=== PATIENT | female | born 1960 | race Caucasian/White ===

== ENCOUNTER 2017-04-17 10:18 | Emergency (ER) | payer MEDICARE ==
[2017-04-17 10:25] VITALS: BP 125/71; PULSE 94; RESP 20; TEMP 98.3
--- NOTE | 2017-04-17 10:35 | ED ---
General Adult HPI - General Chief complaint: Extremity Injury, Lower Stated complaint: foot pain Time Seen by Provider: 04/17/17 10:28 Source: patient, RN notes reviewed Mode of arrival: wheelchair Limitations: physical limitation - History of Present Illness Initial comments: Patient 56-year-old female who presents emergency room today with a chief complaint of injury to the right ankle and foot times one day. Does not that she was walking out of the river slipped on a rock that had algae on it causing her to roll the right ankle. Does admit to pain locally to the ankle and foot. Denies any other complaints or associated symptoms at this time. Patient denies any recent fever, chills, shortness of breath, chest pain, back pain, abdominal pain, nausea or vomiting, numbness or tingling, dysuria or hematuria, constipation or diarrhea, headaches or visual changes, or any other complaints. - Related Data Allergies Allergy/AdvReac Type Severity Reaction Status Date / Time acetaminophen [From Vicodin] Allergy Swelling Verified 04/17/17 10:25 hydrocodone [From Vicodin] Allergy Swelling Verified 04/17/17 10:25 nitrofurantoin Allergy Swelling Verified 04/17/17 10:25 [From Macrobid] oxycodone [From Percocet] Allergy Swelling Verified 04/17/17 10:25 pregabalin [From Lyrica] Allergy Swelling Verified 04/17/17 10:25 Review of Systems ROS Statement: Those systems with pertinent positive or pertinent negative responses have been documented in the HPI. ROS Other: All systems not noted in ROS Statement are negative. Past Medical History Past Medical History: Fibromyalgia History of Any Multi-Drug Resistant Organisms: None Reported Past Surgical History: Section, Hysterectomy, Orthopedic Surgery Past Psychological History: No Psychological Hx Reported Smoking Status: Former smoker Past Alcohol Use History: Occasional Past Drug Use History: None Reported General Exam - General Exam Comments Initial Comments: General: The patient is awake and alert, in no distress, and does not appear acutely ill. Neck: The neck is supple, there is no tenderness or JVD. Cardiovascular: There is a regular rate and rhythm. No murmur, rub or gallop is appreciated. Respiratory: Lungs are clear to auscultation, respirations are non-labored, breath sounds are equal. No wheezes, stridor, rales, or rhonchi. Musculoskeletal: Patient does have moderate swelling down to the right ankle and foot. Does have tenderness over the lateral malleolus. Tender in the ATFL. No tenderness over the fourth and third proximal metatarsals. No tenderness to the right knee. Sensations intact with pulses equal bilaterally 2 +. Neurological: A&O x 3. CN II-XII intact, There are no obvious motor or sensory deficits. Coordination appears grossly intact. Speech is normal. Skin: Skin is warm and dry and no rashes or lesions are noted. Psychiatric: Normal mood and affect. Limitations: physical limitation Course Vital Signs 04/17/17 10:22 Temperature 98.3 F Pulse Rate 94 Respiratory 20 Rate Blood Pressure 125/71 O2 Sat by Pulse 98 Oximetry Medical Decision Making - Medical Decision Making Patient's x-ray reviewed does show evidence for a distal fibula fracture nondisplaced. Results were discussed with the patient. Patient has been splinted in a posterior short leg OCL splint. Neurovascular rechecked and intact. Patient advised to follow-up with orthopedics over the next 1-2 days. Patient states she has crutches at home. She is nonweightbearing. Advised return for any other concerns. Disposition Clinical Impression: Ankle fracture Disposition: HOME SELF-CARE Condition: Good Instructions: Ankle Fracture (ED) Additional Instructions: Please follow-up with orthopedics over the next 1-2 days. Please see splinted in Lasix until follow-up appointment. Please continue to ice elevate the affected area. Please use crutches with nonweightbearing. Please return to emergency room for any other concerns. Referrals: Angie Moreno MD [Primary Care Provider] - 1-2 days Cj Wise MD [STAFF PHYSICIAN] - 1-2 days Time of Disposition: 11:06
--- NOTE | 2017-04-17 11:07 | XR ---
Right foot and right ankle HISTORY: Trauma and pain 3 views of the right foot and 3 views of the right ankle submitted and correlated to prior right foot dated 04/25/2015 Plantar calcaneal spur is again noted. Soft tissue swelling is noted in the foot. Oblique fracture of the distal fibula at the metaphyseal level is present with minimal displacement posteriorly and late rally. No dislocation. There is soft tissue swelling. Small ossific density distal to the fibula appe ars well-corticated and is felt likely to be chronic. IMPRESSION: Distal fibular fracture.
== END 2017-04-17 11:19 | disposition home or self-care (01) ==
LOC: EC 10:18
DX: S82.831A Other fracture of upper and lower end of right fibula, initial encounter for closed fracture (principal); Z87.891 Personal history of nicotine dependence; Z88.1 Allergy status to other antibiotic agents; Z88.5 Allergy status to narcotic agent; W18.49XA Other slipping, tripping and stumbling without falling, initial encounter; Y92.828 Other wilderness area as the place of occurrence of the external cause; Z88.8 Allergy status to other drugs, medicaments and biological substances
CPT/HCPCS: 29515; 99283

== ENCOUNTER 2017-04-18 12:26 | Day surgery (SDC) | payer MEDICARE ==
[2017-04-18] MEDS ORDERED: ceFAZolin 2 GM in SODIUM CHLORIDE 0.9% 100 ML IVPB STA (12:34)
--- NOTE | 2017-04-18 12:56 | XR ---
EXAMINATION TYPE: XR chest 2V DATE OF EXAM: 04/18/2017 COMPARISON: NONE HISTORY: Presurgical study TECHNIQUE: Frontal and lateral views of the chest are obtained. FINDINGS: There is no focal air space opacity, pleural effusion, or pneumothorax seen. The cardiac silhouette size is within normal limits. Spine is straightened on lateral view. There is anterior fus ion plate in the lower cervical spine noted. IMPRESSION: No acute cardiopulmonary process.
[2017-04-18] MEDS ORDERED: LIDOCAINE 1% 20 ML VIAL (10MG/ML) FOR IV START INTRADERMA ONE (14:07)
[2017-04-18] MEDS ORDERED: LACTATED RINGERS 1,000 ML IV ONE ×2 (14:07→17:35)
[2017-04-18 14:25] LABS: Anion Gap 11 mmol/L; Blood Urea Nitrogen 9 mg/dL (7-17); Carbon Dioxide 13 mmol/L (22-30); Chloride 107 mmol/L (98-107); Non-African American GFR(MDRD) >60 (>60 ml/min/1.73 sqM); Potassium 4.1 mmol/L (3.5-5.1); Sodium 131 mmol/L (137-145)
[2017-04-18 14:26] LABS: INR 1.5 (<1.2); Partial Thromboplastin Time 38.3 sec (22.0-30.0); Prothrombin Time 14.9 sec (9.0-12.0)
[2017-04-18 14:28] LABS: Aty Lym Flag Slight; Basophils % (A) 1 %; CHCM 32.7; Eosinophils % (A) 2 %; HCT 20.3 % (34.0-46.0); HDW 2.44; Luc # (Auto) 0.15; Luc % (Auto) 5; Lymphocytes # (A) 0.5 k/uL (1.0-4.8); Lymphocytes % (A) 18 %; MCH 31.7 pg (25.0-35.0); MCHC 32.2 g/dL (31.0-37.0); MCV 98.5 fL (80.0-100.0); Mean Platelet Volume 7.7; Monocytes # (A) 0.2 k/uL (0-1.0); Monocytes % (A) 6 %; Neutrophils # (A) 1.9 k/uL (1.3-7.7); Neutrophils % (A) 69 %; RBC 2.06 m/uL (3.80-5.40); WBC 2.7 k/uL (3.8-10.6); WBC (Perox) 2.68
[2017-04-18] MEDS ORDERED: DEXAMETHASONE SOD PHOSPHATE 10 MG/ML 1 ML VIAL IV ONE (14:30)
[2017-04-18] MEDS ORDERED: ONDANSETRON 4 MG/2 ML VIAL IVP ONE (14:30)
[2017-04-18 14:33] LABS: HGB 6.5 gm/dL (11.4-16.0)
[2017-04-18 14:43] LABS: Glucose 37 mg/dL (74-99)
[2017-04-18 14:55] LABS: Glucose,Whole Blood 80 mg/dL (75-99)
[2017-04-18 15:44] LABS: Basophils # (A) 0.1 k/uL (0-0.2); Basophils % (A) 1 %; CH 32.5; Eosinophils # (A) 0.2 k/uL (0-0.7); Eosinophils % (A) 2 %; HCT 42.8 % (34.0-46.0); HDW 2.43; Luc # (Auto) 0.11; Luc % (Auto) 2; Lymphocytes # (A) 1.8 k/uL (1.0-4.8); Lymphocytes % (A) 27 %; MCH 32.6 pg (25.0-35.0); MCHC 33.9 g/dL (31.0-37.0); Monocytes # (A) 0.4 k/uL (0-1.0); Monocytes % (A) 5 %; Neutrophils # (A) 4.1 k/uL (1.3-7.7); Neutrophils % (A) 63 %; RBC 4.46 m/uL (3.80-5.40); RDW 12.5 % (11.5-15.5); WBC 6.5 k/uL (3.8-10.6); WBC (Perox) 6.96
[2017-04-18 15:51] LABS: HGB 14.5 gm/dL (11.4-16.0)
[2017-04-18 15:54] LABS: Anion Gap 9 mmol/L; Blood Urea Nitrogen 18 mg/dL (7-17); Calcium 9.1 mg/dL (8.4-10.2); Carbon Dioxide 24 mmol/L (22-30); Chloride 108 mmol/L (98-107); Glucose 81 mg/dL (74-99); Non-African American GFR(MDRD) >60 (>60 ml/min/1.73 sqM); Potassium 4.3 mmol/L (3.5-5.1); Sodium 141 mmol/L (137-145)
[2017-04-18 16:08] LABS: Partial Thromboplastin Time 19.7 sec (22.0-30.0)
[2017-04-18] MEDS ORDERED: PROPOFOL 10 MG/ML 20 ML VIAL IV ONE (16:17)
[2017-04-18] MEDS ORDERED: SUCCINYLCHOLINE CHLORIDE 100 MG/5 ML SYR IV ONE (16:17)
[2017-04-18] MEDS ORDERED: ePHEDrine 50 MG/ML 1 ML AMP ONE (16:17)
[2017-04-18] MEDS ORDERED: LIDOCAINE 1% INJ 10MG/ML (20 ML MDV) ONE (16:17)
[2017-04-18] MEDS ORDERED: MIDAZOLAM 2 MG/2 ML VIAL ONE (16:17)
[2017-04-18] MEDS ORDERED: fentaNYL (PF) 50 MCG/ML 2 ML AMP ONE (16:17)
[2017-04-18] MEDS ORDERED: BUPIVACAINE (PF) 0.25% 30 ML VIAL SQ ONE (16:46)
[2017-04-18] MEDS ORDERED: ONDANSETRON 4 MG/2 ML VIAL IVP PRN (17:21)
[2017-04-18] MEDS ORDERED: HYDROmorphone 1 MG/ML 1 ML SYRINGE IVP PRN ×2 (17:21)
[2017-04-18] MEDS ORDERED: NALOXONE 0.4 MG/ML 1 ML VIAL IV PRN (17:21)
[2017-04-18] MEDS ORDERED: LACTATED RINGERS 1,000 ML IV SCH (17:30)
[2017-04-18 17:46] VITALS: RESP 16; TEMP 97
--- NOTE | 2017-04-18 17:56 | P.OP ---
Date of Procedure: 04/18/17 Preoperative Diagnosis: Right ankle lateral malleolus fracture, displaced, acute and traumatic Postoperative Diagnosis: Same Procedure(s) Performed: Implants: Anesthesia: GETA Pathology: none sent Condition: stable Disposition: PACU Indications for Procedure: Operative Findings: Description of Procedure: BRIEF OPERATIVE NOTE Preoperative Diagnosis: Right distal fibula fracture, comminuted and displaced, acute traumatic status post fall Postoperative Diagnosis: Same Procedure: Open reduction internal fixation of right distal fibula fracture Use of fluoroscopic guidance Surgeon: Dr. Kennedy [employer] Battery Assembler: Toby Roque is present throughout the entire the case persistence during positioning, dissection, exposure, visualization, and all crucial elements of the case as well as closure. Anesthesia: General anesthesia Estimated blood loss: Less than 10 mL Tourniquet time: Approximately 40 minutes Specimen: None Complications: None apparent Components implanted: Synthes small frag one third semitubular plate with 7 screws with comminution of 3.5 cortical and 40 cancellus screws Disposition: To recovery room in good stable condition. OPERATIVE INDICATIONS The patient had an acute injury 2 days ago when she slipped and fell on some rocks in the river while she [place] the [place].. She had immediate pain and swelling in her right ankle. She had not had any pain or issues prior to her fall. She was evaluated and found have a comminuted distal fibula fracture with accompanying medial sided pain. She unfortunately was away from home and had to drive in her car with her ankle fracture. She was evaluated in the emergency room yesterday and was found have an ankle fracture at the distal fibula. There is no evidence of fracture at the medial malleolus but there was evidence of deltoid ligament injury. With the comminution and the medial and lateral pain involved I felt that her best chance of healing would be to pursue open reduction internal fixation of distal fibula. I discussed the risk of occasions alternatives and benefits of surgery in relation to her injury. I discussed the risk of bleeding risk and infection risk and need for further surgery risk of decreased loss of motion loss function malunion nonunion hardware failure nerve damage as well as, occasions with surgery were explained. I answered her questions best my ability and she elected proceed with surgical intervention. OPERATIVE SUMMARY After discussing all the risks, patient alternatives and benefits at length, the patient elected to proceed with surgical intervention, signed informed consent, and presented for their procedure. The patient was seen and examined in the preoperative holding area and the surgical site was marked. The patient was given antibiotics and brought to the operating room. The patient was sedated and intubated by anesthesia in standard fashion. The patient was positioned on to the operating room table in a supine position with a pad under her right hip. We were careful to pad any bony prominences and pressure points. We were careful to maintain the patient's cervical spine and good neutral alignment and position throughout. We used C-arm machines to establish union fluoroscopic guidance in AP and lateral positions. We were able to localize the fractures appropriately. The patient was prepped and draped in a normal standard fashion. An appropriate timeout and keystone protocol performed. We were able to proceed with the surgery. The local wound area was infiltrated with local anesthetic. An incision was made over the lateral aspect of the ankle and I dissected down to the distal fibula appropriately. The patient does have a tattoo at her lower leg and I had discussed with her the possibility of involving the tattoo area and we did not have to involve a tattoo in the incision. The fracture was obvious and I was able to mobilize some of the fragments and elevated some of the periosteum leaving as much is intact as possible. I performed a gentle reduction techniques in order to get the fractures well aligned and use of bone clamp to get good provisional fixation. I was able to get good near-anatomic position. This was confirmed with C-arm guidance. I was able place an anterior posterior interfragmentary screw across fracture site with standard AO technique and had good fixation and compression across the fracture site. I was then able to measure and position a one third semitubular 6 hole plate and contoured appropriately over the distal fibula and over the fracture site proximally and distally. I establish an interfragmentary screw going from anterior to posterior across fracture site and good alignment and position with good bony fixation. As able to remove the bone clamp in place the plate laterally and placed cortical screws proximally and cancellous screws distally to get excellent fixation at a near anatomic position. This was confirmed with C-arm guidance. Significant. I performed medial and lateral varus and valgus stress at the ankle after fixation was performed and there is no evidence of any widening or displacement of the syndesmosis or the ankle mortise. I do not feel we needed any further fixation. We were able to proceed with closure. Deep layers were closed with 2-0 Vicryl subcu tissues closed 2-0 Vicryl and skin was closed with 4-0 nylon. The wound was cleaned and dried and dressed with the appropriate dressing. I placed a sugar tong and posterior mold well-padded well molded splint at the right lower leg. The drapes were broken down. The patient was gently rolled back onto their hospital bed being careful to maintain their cervical spine and good neutral alignment and position. They were woken up by anesthesia, extubated, and brought to the recovery room in good stable condition. The patient will be able to be discharged from the hospital after appropriate observation due to and for appropriate postoperative care, medical management and monitoring. We will continue to follow them closely about the postoperative course. a plan see her back in the office in approximately 1 week' s time or sooner if she is having problems.
[2017-04-18] MEDS ORDERED: HYDROmorphone 1 MG/ML 1 ML SYRINGE IVP ONE (18:07)
[2017-04-18] MEDS ORDERED: IBUPROFEN 200 MG TAB PO ONE (18:56)
[2017-04-18 19:03] VITALS: BP 128/93; PULSE 62
[2017-04-19] MEDS ORDERED: ceFAZolin 2 GM in SODIUM CHLORIDE 0.9% 100 ML IVPB SCH ×2
--- NOTE | 2017-04-19 08:27 | XR ---
Limited right ankle HISTORY: Right ankle fracture Intraoperative C-arm images document the procedure
--- NOTE | 2017-04-19 08:30 | FL ---
Fluoroscopy HISTORY: Open reduction internal fixation right ankle 30 seconds fluoroscopy time supplied to the referring clinician. 3 intraoperative C-arm images docum ent the procedure. See dictated report from orthopedic surgery.
== END 2017-04-18 19:22 | disposition home or self-care (01) ==
LOC: OR 12:26
PROVIDERS: ATTEND Orthopaedic Surgery Orthopaedic Surgery of the Spine
DX: S82.61XA Displaced fracture of lateral malleolus of right fibula, initial encounter for closed fracture (principal); Y92.828 Other wilderness area as the place of occurrence of the external cause; Y93.16 Activity, rowing, canoeing, kayaking, rafting and tubing; W19.XXXA Unspecified fall, initial encounter; E03.9 Hypothyroidism, unspecified; M79.7 Fibromyalgia; Z79.891 Long term (current) use of opiate analgesic; Z79.899 Other long term (current) drug therapy; Z88.1 Allergy status to other antibiotic agents; Z88.5 Allergy status to narcotic agent; Z87.891 Personal history of nicotine dependence
CPT/HCPCS: 93005; 86900; 86901; 80048; 85025; 85610; 85730; 86850; 71020; 73600; 27792; C1713; J2250; J1100; J0690; J2405; J2001; J3010; J1170; J0330; J2704

== ENCOUNTER → 2018-07-29 | Outpatient (CLI) | payer MEDICARE ==
--- NOTE | 2018-07-29 11:37 | MR ---
EXAMINATION TYPE: MR cervical spine wo/w con DATE OF EXAM ORDERED: 07/29/2018 11:10 AM HISTORY: M50.01 Cervical disc disorder. TECHNOLOGIST HISTORY AT TIME OF EXAM: Headaches, Bilateral arm weakness, Gadavist 7.5, Previous surge ry 15 years ago IV CONTRAST: 7.5 of Gadavist COMPARISON: None. TECHNIQUE: Multiplanar, multiecho imaging of the cervical spine was obtained with and without the in travenous administration of 7.5 of Gadavist on a 1.5 fatmata magnet. FINDINGS: There is been a previous ACDF extending from C4 to C6. Alignment remains normal. Atlantoaxi al relationships are normal. Prevertebral soft tissues are normal. There is a normal craniocervical junction. Cord signal is normal. There is no abnormal enhancement. At C2-C3, no significant abnormality is seen. At C3-C4, there is mild right-sided intervertebral foraminal narrowing. There is some bony spurring c entrally deforming the thecal sac with cord contact but without compression.. The facet are unremarka ble. The uncovertebral joints are not visualized. At C4-C5, this level is fused. There is mild right-sided intervertebral foraminal narrowing. There is no significant compressive discopathy. The facets are unremarkable. The uncovertebral joints are obs cured. At C5-C6, this level is fused. There is right-sided intervertebral foraminal narrowing. There is a sm all amount of bony spurring in a right paracentral location effacing the thecal sac without cord cont act. At C6-C7, there is bilateral intervertebral foraminal narrowing. There is a diffuse disc displacement . The facet and uncovertebral joints are unremarkable. At C7-T1, intervertebral foramina are well maintained. There is a diffuse disc displacement. The face t and uncovertebral joints are unremarkable. IMPRESSION: 1. POSTSURGICAL CHANGE. 2. MULTILEVEL INTERVERTEBRAL FORAMINAL NARROWING. 3. MILD BONY SPURRING DESCRIBED. 4. NO SIGNIFICANT COMPRESSIVE DISCOPATHY.
== END ==
LOC: RADMRIMAIN 10:17
PROVIDERS: ATTEND Family Medicine
DX: M99.71 Connective tissue and disc stenosis of intervertebral foramina of cervical region (principal); M77.8 Other enthesopathies, not elsewhere classified; Z98.890 Other specified postprocedural states
CPT/HCPCS: 72156; A9585

== ENCOUNTER 2018-10-09 19:03 | Emergency (ER) | payer MEDICARE, OTHER ==
[2018-10-09 19:09] VITALS: RESP 18
[2018-10-09 19:57] LABS: Basophils # (A) 0.1 k/uL (0-0.2); Basophils % (A) 1 %; Eosinophils # (A) 0.1 k/uL (0-0.7); Eosinophils % (A) 2 %; HCT 40.6 % (34.0-46.0); HGB 14.1 gm/dL (11.4-16.0); Lymphocytes % (A) 30 %; MCH 32.1 pg (25.0-35.0); MCHC 34.6 g/dL (31.0-37.0); MCV 92.9 fL (80.0-100.0); Mean Platelet Volume 6.3; Monocytes # (A) 0.4 k/uL (0-1.0); Monocytes % (A) 6 %; Neutrophils # (A) 3.9 k/uL (1.3-7.7); Neutrophils % (A) 59 %; Platelet Count 280 k/uL (150-450); RBC 4.38 m/uL (3.80-5.40); RDW 12.3 % (11.5-15.5); WBC 6.6 k/uL (3.8-10.6)
[2018-10-09 20:12] LABS: Creatine Kinase 60 U/L (30-135)
[2018-10-09 20:14] LABS: ALT 43 U/L (9-52); AST 24 U/L (14-36); Albumin 3.6 g/dL (3.5-5.0); Alkaline Phosphatase 65 U/L (38-126); Anion Gap 5 mmol/L; Blood Urea Nitrogen 24 mg/dL (7-17); Calcium 8.9 mg/dL (8.4-10.2); Carbon Dioxide 24 mmol/L (22-30); Chloride 111 mmol/L (98-107); Glucose 102 mg/dL (74-99); Magnesium 1.9 mg/dL (1.6-2.3); Potassium 4.4 mmol/L (3.5-5.1); Sodium 140 mmol/L (137-145); Total Protein 5.9 g/dL (6.3-8.2)
[2018-10-09 20:15] LABS: D-Dimer 0.32 mg/L FEU (<0.60); INR 0.9 (<1.2); Partial Thromboplastin Time 22.6 sec (22.0-30.0); Prothrombin Time 10.2 sec (9.0-12.0)
[2018-10-09 20:22] LABS: Creatine Kinase MB 0.8 ng/mL (0.0-2.4)
[2018-10-09 20:25] LABS: Troponin I <0.012 ng/mL (0.000-0.034)
--- NOTE | 2018-10-09 20:42 | XR ---
EXAMINATION: XR chest 2V DATE AND TIME: 10/09/2018 8:05 PM CLINICAL INDICATION: PHH; Chest Pain TECHNIQUE: Departmental protocol COMPARISON: 04/18/2017 FINDINGS: The lungs are clear. The pleural spaces are negative. The cardiac silhouette is not enlarged. The remainder of the mediastinal silhouette is unremarkable. The skeletal structures and soft tissues are negative for acute findings. IMPRESSION: NO ACUTE PROCESS.
--- NOTE | 2018-10-09 20:47 | ED ---
General Adult HPI - General Chief complaint: Chest Pain Stated complaint: CHEST PAIN Time Seen by Provider: 10/09/18 19:18 Source: patient, EMS, RN notes reviewed, old records reviewed Mode of arrival: EMS Limitations: no limitations - History of Present Illness Initial comments: 57-year-old female presents for evaluation of right-sided chest pain. Patient was moving an appliance at work, she had her right arm extended to lower this appliance, felt a sudden sharp pain in the right side of her chest over her breast pain traveled from right side of her chest, right shoulder, right neck and through to her back. Denies central chest pain or left-sided chest pain. Denies dyspnea. Denied diaphoresis. She states the pain did cause her to pass out momentarily. Patient has no history of coronary artery disease. No history DVT or PE. She is a nonsmoker, nondiabetic. No history of hypertension. Patient was given aspirin and nitroglycerin by EMS prior to arrival and symptoms have somewhat improved at the time my evaluation. - Related Data Home Medications Medication Instructions Recorded Confirmed oxyCODONE HCL 30 mg PO 5XD PRN 10/09/18 10/09/18 Allergies Allergy/AdvReac Type Severity Reaction Status Date / Time acetaminophen [From Vicodin] Allergy Swelling Verified 10/09/18 19:40 hydrocodone [From Vicodin] Allergy Swelling Verified 10/09/18 19:40 morphine Allergy Rash/Hives Verified 10/09/18 19:40 nitrofurantoin Allergy Swelling Verified 10/09/18 19:40 [From Macrobid] oxycodone [From Percocet] Allergy Swelling Verified 10/09/18 19:40 pregabalin [From Lyrica] Allergy Swelling Verified 10/09/18 19:40 Review of Systems ROS Statement: Those systems with pertinent positive or pertinent negative responses have been documented in the HPI. ROS Other: All systems not noted in ROS Statement are negative. Past Medical History Past Medical History: Fibromyalgia History of Any Multi-Drug Resistant Organisms: None Reported Past Surgical History: Section, Hysterectomy, Orthopedic Surgery Past Psychological History: No Psychological Hx Reported Smoking Status: Former smoker Past Alcohol Use History: Occasional Past Drug Use History: None Reported General Exam Limitations: no limitations General appearance: alert, in no apparent distress Head exam: Present: atraumatic, normocephalic Eye exam: Present: normal appearance, PERRL ENT exam: Present: normal exam Neck exam: Present: normal inspection, full ROM. Absent: tenderness, meningismus Respiratory exam: Present: normal lung sounds bilaterally, chest wall tenderness. Absent: respiratory distress, wheezes Cardiovascular Exam: Present: regular rate, normal rhythm GI/Abdominal exam: Present: soft. Absent: distended, tenderness Extremities exam: Present: normal inspection, normal capillary refill, other ( Distal pulses 2+ symmetric). Absent: pedal edema Back exam: Present: normal inspection, full ROM. Absent: tenderness Neurological exam: Present: alert, oriented X3, CN II-XII intact. Absent: motor sensory deficit Psychiatric exam: Present: normal affect, normal mood Skin exam: Present: warm, dry, intact. Absent: cyanosis, diaphoretic Course Vital Signs 10/09/18 10/09/18 10/09/18 19:04 21:16 22:41 Temperature 97.9 F 97.9 F Pulse Rate 68 63 93 Respiratory 18 18 18 Rate Blood Pressure 125/94 125/94 133/84 O2 Sat by Pulse 97 98 98 Oximetry 10/09/18 10/10/18 23:04 00:30 Temperature 97.4 F L Pulse Rate 80 76 Respiratory 18 18 Rate Blood Pressure 131/73 103/71 O2 Sat by Pulse 96 96 Oximetry EKG Findings - EKG Comments: EKG Findings:: EKG: Normal sinus rhythm, low voltage, ventricular rate of 73, OK interval 182, QRS duration 78, QTC 456, no ST segment elevation or depression , T-wave inversion in V3 Medical Decision Making - Medical Decision Making 57-year-old female right-sided chest pain, this was severe in onset, somewhat improved at the time my evaluation. This pain did radiate into the patient's back. It was exertional, some features point towards musculoskeletal pain although the severity and momentary loss consciousness is concerning. Chest x- ray and x-ray the right shoulder obtained, negative for any acute abnormalities. Patient has normal CBC, normal CMP, d-dimer and initial troponin negative. CT is obtained, concern for vascular pathology, negative for dissection of the aorta, no acute abnormalities visualized. I would prefer the patient stay in observation for repeat cardiac enzymes, telemetry, and cardiology consultation. She would prefer outpatient follow-up. I did recommend at least the patient received 2 sets of cardiac enzymes which she agrees 2. Second set of cardiac enzymes is negative. Patient states she will repeat present with any worsening or changing symptoms. - Lab Data Result diagrams: 10/09/18 19:30 10/09/18 19:30 Lab Results 10/09/18 10/09/18 10/09/18 Range/Units 19:30 19:30 19:30 WBC 6.6 (3.8-10.6) k/uL RBC 4.38 (3.80-5.40) m/uL Hgb 14.1 (11.4-16.0) gm/dL Hct 40.6 (34.0-46.0) % MCV 92.9 (80.0-100.0) fL MCH 32.1 (25.0-35.0) pg MCHC 34.6 (31.0-37.0) g/dL RDW 12.3 (11.5-15.5) % Plt Count 280 (150-450) k/uL Neutrophils % 59 % Lymphocytes % 30 % Monocytes % 6 % Eosinophils % 2 % Basophils % 1 % Neutrophils # 3.9 (1.3-7.7) k/uL Lymphocytes # 2.0 (1.0-4.8) k/uL Monocytes # 0.4 (0-1.0) k/uL Eosinophils # 0.1 (0-0.7) k/uL Basophils # 0.1 (0-0.2) k/uL PT (9.0-12.0) sec INR (<1.2) APTT (22.0-30.0) sec D-Dimer (<0.60) mg/L FEU Sodium 140 (137-145) mmol/L Potassium 4.4 (3.5-5.1) mmol/L Chloride 111 H (98-107) mmol/L Carbon Dioxide 24 (22-30) mmol/L Anion Gap 5 mmol/L BUN 24 H (7-17) mg/dL Creatinine 0.84 (0.52-1.04) mg/dL Est GFR (CKD-EPI)AfAm >90 (>60 ml/min/1.73 sqM) Est GFR (CKD-EPI)NonAf 78 (>60 ml/min/1.73 sqM) Glucose 102 H (74-99) mg/dL Calcium 8.9 (8.4-10.2) mg/dL Magnesium 1.9 (1.6-2.3) mg/dL Total Bilirubin 1.0 (0.2-1.3) mg/dL AST 24 (14-36) U/L ALT 43 (9-52) U/L Alkaline Phosphatase 65 (38-126) U/L Total Creatine Kinase 60 (30-135) U/L CK-MB (CK-2) 0.8 (0.0-2.4) ng/mL CK-MB (CK-2) Rel Index 1.3 Troponin I <0.012 (0.000-0.034) ng/mL Total Protein 5.9 L (6.3-8.2) g/dL Albumin 3.6 (3.5-5.0) g/dL 10/09/18 10/09/18 Range/Units 19:30 22:39 WBC (3.8-10.6) k/uL RBC (3.80-5.40) m/uL Hgb (11.4-16.0) gm/dL Hct (34.0-46.0) % MCV (80.0-100.0) fL MCH (25.0-35.0) pg MCHC (31.0-37.0) g/dL RDW (11.5-15.5) % Plt Count (150-450) k/uL Neutrophils % % Lymphocytes % % Monocytes % % Eosinophils % % Basophils % % Neutrophils # (1.3-7.7) k/uL Lymphocytes # (1.0-4.8) k/uL Monocytes # (0-1.0) k/uL Eosinophils # (0-0.7) k/uL Basophils # (0-0.2) k/uL PT 10.2 (9.0-12.0) sec INR 0.9 (<1.2) APTT 22.6 (22.0-30.0) sec D-Dimer 0.32 (<0.60) mg/L FEU Sodium (137-145) mmol/L Potassium (3.5-5.1) mmol/L Chloride (98-107) mmol/L Carbon Dioxide (22-30) mmol/L Anion Gap mmol/L BUN (7-17) mg/dL Creatinine (0.52-1.04) mg/dL Est GFR (CKD-EPI)AfAm (>60 ml/min/1.73 sqM) Est GFR (CKD-EPI)NonAf (>60 ml/min/1.73 sqM) Glucose (74-99) mg/dL Calcium (8.4-10.2) mg/dL Magnesium (1.6-2.3) mg/dL Total Bilirubin (0.2-1.3) mg/dL AST (14-36) U/L ALT (9-52) U/L Alkaline Phosphatase (38-126) U/L Total Creatine Kinase (30-135) U/L CK-MB (CK-2) (0.0-2.4) ng/mL CK-MB (CK-2) Rel Index Troponin I <0.012 (0.000-0.034) ng/mL Total Protein (6.3-8.2) g/dL Albumin (3.5-5.0) g/dL Disposition Clinical Impression: Chest pain Disposition: HOME SELF-CARE Instructions (If sedation given, give patient instructions): Chest Pain (ED) Is patient prescribed a controlled substance at d/c from ED?: No Referrals: Angie Moreno MD [Primary Care Provider] - 1-2 days
[2018-10-09] MEDS ORDERED: KETOROLAC 30 MG/ML 1 ML VIAL IVP STA (20:58)
--- NOTE | 2018-10-09 21:17 | XR ---
PROCEDURE: XR shoulder complete RT - 3V DATE AND TIME: 10/09/2018 8:08 PM CLINICAL INDICATION: PHH; Pain TECHNIQUE: Department protocol COMPARISON: None FINDINGS: There is no fracture or malalignment. The soft tissues are unremarkable. IMPRESSION: NO ACUTE PROCESS.
[2018-10-09] MEDS ORDERED: HYDROmorphone 1 MG/ML 1 ML SYRINGE IVP STA (22:53)
--- NOTE | 2018-10-09 23:41 | CT ---
EXAMINATION TYPE: CT angio thor/abd pel aorta DATE OF EXAM: 10/09/2018 COMPARISON: None HISTORY: Chest pain, radiating to RT side up into neck CT DLP: 1770.3 mGycm. Automated Exposure Control for Dose Reduction was Utilized. CONTRAST: CT scan of the thorax, abdomen and pelvis is performed with IV Contrast, patient injected with 100 mL of Isovue 370. FINDINGS: Exam performed without and with IV contrast. There are 3-D post processed images. The lungs are clear of infiltrate. There is no evidence of a pulmonary mass. There is minimal subsegm ental atelectasis at the posterior lung bases. There is no pleural effusion. There is no pericardial effusion. Heart size is normal. I see no filling defects in the pulmonary arteries. There is no media stinal adenopathy. Thoracic aorta appears normal without evidence of aneurysm or dissection. There ar e no hilar masses. There is patency of the celiac artery and superior mesenteric artery. There is patency of the renal i liac and femoral arteries. I see no evidence of hemodynamic stenosis. Abdominal aorta has normal size . There is no aortic aneurysm or dissection. Bladder distends smoothly. There is no free fluid in the pelvis. There is no mesenteric edema or adenopathy. The appendix appears normal. There is no sign of a bowel obstruction. There is no intestinal wall thickening. There is no evidence of free air. There is normal branching pattern of the great vessels on the aortic arch. The bony structures appear intact. IMPRESSION: Normal CT angiogram of the chest abdomen and pelvis. Normal appendix. No evidence of aortic aneurysm or dissection. No evidence of pulmonary embolism.
[2018-10-10 00:31] VITALS: BP 103/71; PULSE 76; TEMP 97.4
== END 2018-10-10 00:32 | disposition home or self-care (01) ==
LOC: EC 19:03
DX: R07.9 Chest pain, unspecified (principal); Z88.5 Allergy status to narcotic agent; Z88.6 Allergy status to analgesic agent; Z88.8 Allergy status to other drugs, medicaments and biological substances; Z88.1 Allergy status to other antibiotic agents; Z87.891 Personal history of nicotine dependence
CPT/HCPCS: 36415; 93005; 85379; 80053; 82550; 82553; 83735; 84484; 85025; 85610; 85730; 73030; 71046; 71275; 74174; 99285; 96374; 96375; J1885; J1170; Q9967

== ENCOUNTER → 2019-10-08 | Outpatient (CLI) | payer MEDICARE ==
--- NOTE | 2019-10-08 07:37 | MR ---
EXAMINATION TYPE: MR brain wo con DATE OF EXAM: 10/08/2019 COMPARISON: MRI brain very 2013 HISTORY: Headache TECHNIQUE: Multiplanar, multisequence imaging of the brain and brainstem is performed without IV cont rast. FINDINGS: Diffusion weighted images demonstrate no evidence of a recent infarct or other diffusion abnormality. There is no worrisome extra-axial fluid collection. Mild ventricular and sulcal prominence most promi nent over the bilateral frontal lobes. There is occasional tiny focus of T2 hyperintensity scattered throughout the white matter. Midline structures demonstrate normal morphology. The craniocervical junction appears within normal limits. Normal vascular flow voids are present. Redemonstration of very small caliber bilateral verte bral arteries. The visualized sinuses are clear and the globes are intact. Nasal septum deviated to l eft midline shift. IMPRESSION: Mild generalized atrophy most prominent over the bilateral frontal lobes with mild to min imal nonspecific white matter changes favored on basis of product of chronic small vessel ischemic ch sally in patient of this age. No significant change from prior MRI.
== END | disposition home or self-care (01) ==
LOC: RADMRIMAIN 06:47
PROVIDERS: ATTEND Pain Medicine Pain Medicine
DX: G31.89 Other specified degenerative diseases of nervous system (principal); R90.89 Other abnormal findings on diagnostic imaging of central nervous system
CPT/HCPCS: 70551

== ENCOUNTER → 2019-10-17 | Outpatient (CLI) | payer MEDICARE ==
--- NOTE | 2019-10-17 08:18 | MR ---
EXAMINATION TYPE: MR angio head wo con DATE OF EXAM: 10/17/2019 7:06 AM COMPARISON: NONE HISTORY: Headache Three-dimensional [id number] intracranial MRA was performed with multiple intensity projection im ages submitted and source data reviewed at the workstation. The vertebrobasilar system as well as intracranial portions of the internal carotid arteries and thei r major tributaries are patent. Diminutive vertebral arteries and basilar artery. origin left p osterior communicating artery. I do not see evidence for sizable aneurysm or vascular malformation. IMPRESSION: No evidence for sizable aneurysm.
== END | disposition home or self-care (01) ==
LOC: RADMRIMAIN 06:40
PROVIDERS: ATTEND Pain Medicine Pain Medicine
DX: R51 Headache (principal)
CPT/HCPCS: 70544

== ENCOUNTER → 2020-03-27 | Outpatient (CLI) | payer MEDICARE ==
[2020-03-27 19:39] LABS: African American GFR (CKD) 94.9 (60.0-200.0); Non-African American GFR(CKD) 81.8 (60.0-200.0)
[2020-03-27 21:05] LABS: Urine Alcohol Negative (Negative); Urine Barbiturate Negative (Negative); Urine Cocaine Negative (Negative); Urine Methadone Negative (Negative); Urine Opiates Positive (Negative); Urine Phencyclidine Negative (Negative)
== END | disposition home or self-care (01) ==
LOC: LABWHC1 11:07
PROVIDERS: ATTEND Pain Medicine Pain Medicine
DX: K71.9 Toxic liver disease, unspecified (principal); N14.2 Nephropathy induced by unspecified drug, medicament or biological substance
CPT/HCPCS: 36415; 80306; 82565; 84450; 84460; 84520

== ENCOUNTER → 2020-04-22 | Outpatient (CLI) | payer MEDICARE ==
--- NOTE | 2020-04-22 17:56 | MR ---
EXAMINATION TYPE: MR cervical spine wo con DATE OF EXAM: 04/22/2020 COMPARISON: 07/29/2018 HISTORY: Headaches, Ray arm pain/weakness, Radiculopathy / Neuritis CONTRAST: Performed utilizing 0 mL intravenous Gadavist gadolinium contrast. TECHNIQUE: Multiplanar multiecho imaging on a 3.0 Genesis magnet is performed through the cervical spin e. FINDINGS: The craniovertebral junction is normal. Vertebral body alignment is normal. There is an anterior cervical fusion present C4-C6. Susceptibility artifact is present from pedicle screws. C7-T1: There are central and left paracentral disc bulging with mild anterior thecal sac compression . No cord contact is evident. No AP spinal canal stenosis evident. Neural foramen are patent.. C6-7: There is a tiny central protrusion with mild anterior thecal sac compression. No cord contact i s evident. No spinal canal stenosis is evident. Right foraminal narrowing is present. C5-6: No focal disc herniation or significant disc bulge. Some endplate change may be present with an terior thecal sac contact and cord contact. Cord deformity is not evident. There is a punctate area o f hyperintensity within the spinal cord posterior to this disc level. This was present in 2018 and ap pears stable. C4-5: No focal disc herniation or significant disc bulge is evident. No spinal canal stenosis. Some mild right foraminal narrowing may be present.. C3-4: Broad-based disc bulge has mild anterior thecal sac compression. Cord contact may be present. N o AP spinal canal stenosis present. Mild right foraminal narrowing is present.. C2-3: No focal disc herniation or significant disc bulge is evident. No spinal canal stenosis or kiet ral foraminal stenosis is present. COMPARISON: IMPRESSIONS: 1. Punctate hyperintensity within the right spinal cord posterior to the C5-6 level. This is nonspeci fic. Multiple sclerosis, encephalomalacia could be considered. This was present and appears stable fr om the comparison of 2018. 2. Central and left paracentral disc bulging C7-T1 3. Endplate changes C5-6 have cord contact without cord deformity.
== END | disposition home or self-care (01) ==
LOC: RADMRIMAIN 09:26
PROVIDERS: ATTEND Pain Medicine Pain Medicine
DX: M54.12 Radiculopathy, cervical region (principal); M96.1 Postlaminectomy syndrome, not elsewhere classified; M50.23 Other cervical disc displacement, cervicothoracic region
CPT/HCPCS: 72141

== ENCOUNTER 2020-09-27 12:46 | Emergency (ER) | payer MEDICARE ==
[2020-09-27 12:53] VITALS: RESP 18
[2020-09-27] MEDS ORDERED: KETOROLAC 15 MG/ML 1 ML VIAL IVP STA (13:23)
--- NOTE | 2020-09-27 13:36 | ED ---
General Adult HPI - General Chief complaint: Extremity Problem,Nontraumatic Stated complaint: hip pain Time Seen by Provider: 09/27/20 12:50 Source: patient, RN notes reviewed, old records reviewed Mode of arrival: ambulatory Limitations: no limitations - History of Present Illness Initial comments: This a 59-year-old female who presents emergency Department complaining of left hip pain. Patient states about 3 days ago she started having pain in the left hip down her leg. Patient states even touching it lightly with her clothes hurts she is not wearing any underwear at this time because the underwear rubs on it it hurts. Patient states is no swelling there is been no injury there is no redness there is no rashes. Patient states movement also increases the pain. Palpation also increases and light touch increases the pain. Patient states s he's on oxycodone and it doesn't even touch the pain and she took 2 of them today. - Related Data Home Medications Medication Instructions Recorded Confirmed oxyCODONE HCL [oxyCODONE HCL (IR)] 30 mg PO 5XD PRN 10/09/18 10/09/18 Previous Rx's Medication Instructions Recorded predniSONE [Deltasone] 40 mg PO DAILY #8 tab 09/27/20 Allergies Allergy/AdvReac Type Severity Reaction Status Date / Time acetaminophen [From Vicodin] Allergy Swelling Verified 10/09/18 19:40 hydrocodone [From Vicodin] Allergy Swelling Verified 10/09/18 19:40 morphine Allergy Rash/Hives Verified 10/09/18 19:40 nitrofurantoin Allergy Swelling Verified 10/09/18 19:40 [From Macrobid] oxycodone [From Percocet] Allergy Swelling Verified 10/09/18 19:40 pregabalin [From Lyrica] Allergy Swelling Verified 10/09/18 19:40 Review of Systems ROS Statement: Those systems with pertinent positive or pertinent negative responses have been documented in the HPI. ROS Other: All systems not noted in ROS Statement are negative. Past Medical History Past Medical History: Fibromyalgia Additional Past Medical History / Comment(s): chronic back pain History of Any Multi-Drug Resistant Organisms: None Reported Past Surgical History: Section, Hysterectomy, Orthopedic Surgery Past Psychological History: No Psychological Hx Reported Smoking Status: Former smoker Past Alcohol Use History: Occasional Past Drug Use History: None Reported General Exam - General Exam Comments Initial Comments: GENERAL: Patient is well-developed and well-nourished. Patient is nontoxic and well- hydrated and is in moderate distress. ENT: Neck is soft and supple. No significant lymphadenopathy is noted. Oropharynx is clear. Moist mucous membranes. Neck has full range of motion without eliciting any pain. EYES: The sclera were anicteric and conjunctiva were pink and moist. Extraocular movements were intact and pupils were equal round and reactive to light. Eyelids were unremarkable. PULMONARY: Unlabored respirations. Good breath sounds bilaterally. No audible rales rhonchi or wheezing was noted. CARDIOVASCULAR: There is a regular rate and rhythm without any murmurs gallops or rubs. Femoral pulses normal on the left. ABDOMEN: Soft and nontender with normal bowel sounds. SKIN: Skin is clear with no lesions or rashes and otherwise unremarkable. NEUROLOGIC: Patient is alert and oriented x3. Cranial nerves II through XII are grossly in tact. Motor and sensory are also intact. Normal speech, volume and content. Symmetrical smile. MUSCULOSKELETAL: Patient has pain to the lateral left thigh and lateral hip as well as the lower lumbar on the left. Patient has pain with deep palpation as well as very light touch. When the patient tries to lift the leg or bend at the knee or hip this elicits the pain as well. Patient's leg is not swollen there is no area of redness to her note rashes and distal pulses of the foot are intact LYMPHATICS: No significant lymphadenopathy is noted PSYCHIATRIC: Normal psychiatric evaluation. Limitations: no limitations Course Vital Signs 09/27/20 12:49 Temperature 98.6 F Pulse Rate 113 H Respiratory 18 Rate Blood Pressure 118/74 O2 Sat by Pulse 98 Oximetry Medical Decision Making - Medical Decision Making Patient got 125 Solu-Medrol. - Lab Data Result diagrams: 09/27/20 13:40 09/27/20 13:40 Lab Results 09/27/20 09/27/20 Range/Units 13:40 13:40 WBC 5.6 (3.8-10.6) k/uL RBC 4.95 (3.80-5.40) m/uL Hgb 15.4 (11.4-16.0) gm/dL Hct 45.0 (34.0-46.0) % MCV 91.0 (80.0-100.0) fL MCH 31.1 (25.0-35.0) pg MCHC 34.1 (31.0-37.0) g/dL RDW 11.8 (11.5-15.5) % Plt Count 305 (150-450) k/uL MPV 6.2 Neutrophils % 58 % Lymphocytes % 33 % Monocytes % 5 % Eosinophils % 1 % Basophils % 1 % Neutrophils # 3.2 (1.3-7.7) k/uL Lymphocytes # 1.8 (1.0-4.8) k/uL Monocytes # 0.3 (0-1.0) k/uL Eosinophils # 0.1 (0-0.7) k/uL Basophils # 0.1 (0-0.2) k/uL ESR 8 (0-20) mm/hr Sodium 139 (137-145) mmol/L Potassium 4.1 (3.5-5.1) mmol/L Chloride 105 (98-107) mmol/L Carbon Dioxide 30 (22-30) mmol/L Anion Gap 4 mmol/L BUN 19 H (7-17) mg/dL Creatinine 0.81 (0.52-1.04) mg/dL Est GFR (CKD-EPI)AfAm >90 (>60 ml/min/1.73 sqM) Est GFR (CKD-EPI)NonAf 81 (>60 ml/min/1.73 sqM) Glucose 120 H (74-99) mg/dL Calcium 9.5 (8.4-10.2) mg/dL Total Bilirubin 1.8 H (0.2-1.3) mg/dL AST 119 H (14-36) U/L ALT 158 H (4-34) U/L Alkaline Phosphatase 90 (38-126) U/L Creatine Kinase 39 (30-135) U/L C-Reactive Protein <5.0 (<10.0) mg/L Total Protein 6.7 (6.3-8.2) g/dL Albumin 4.1 (3.5-5.0) g/dL Disposition Clinical Impression: Sciatica, left side Disposition: HOME SELF-CARE Condition: Poor Instructions (If sedation given, give patient instructions): Sciatica (ED) Prescriptions: predniSONE [Deltasone] 40 mg PO DAILY #8 tab Is patient prescribed a controlled substance at d/c from ED?: No Referrals: Edgar Gomez MD [Primary Care Provider] - 1-2 days Time of Disposition: 14:56
[2020-09-27 13:51] LABS: Basophils # (A) 0.1 k/uL (0-0.2); Basophils % (A) 1 %; Eosinophils # (A) 0.1 k/uL (0-0.7); Eosinophils % (A) 1 %; HGB 15.4 gm/dL (11.4-16.0); Lymphocytes # (A) 1.8 k/uL (1.0-4.8); Lymphocytes % (A) 33 %; MCH 31.1 pg (25.0-35.0); MCHC 34.1 g/dL (31.0-37.0); Mean Platelet Volume 6.2; Monocytes # (A) 0.3 k/uL (0-1.0); Monocytes % (A) 5 %; Neutrophils # (A) 3.2 k/uL (1.3-7.7); Neutrophils % (A) 58 %; Platelet Count 305 k/uL (150-450); RBC 4.95 m/uL (3.80-5.40); RDW 11.8 % (11.5-15.5); WBC 5.6 k/uL (3.8-10.6)
[2020-09-27 14:02] LABS: ALT 158 U/L (4-34); AST 119 U/L (14-36); African American GFR (CKD) >90 (>60 ml/min/1.73 sqM); Albumin 4.1 g/dL (3.5-5.0); Alkaline Phosphatase 90 U/L (38-126); Anion Gap 4 mmol/L; Blood Urea Nitrogen 19 mg/dL (7-17); C Reactive Protein <5.0 mg/L (<10.0); Calcium 9.5 mg/dL (8.4-10.2); Carbon Dioxide 30 mmol/L (22-30); Chloride 105 mmol/L (98-107); Creatine Kinase 39 U/L (30-135); Glucose 120 mg/dL (74-99); Non-African American GFR(CKD) 81 (>60 ml/min/1.73 sqM); Potassium 4.1 mmol/L (3.5-5.1); Sodium 139 mmol/L (137-145); Total Bilirubin 1.8 mg/dL (0.2-1.3); Total Protein 6.7 g/dL (6.3-8.2)
--- NOTE | 2020-09-27 14:12 | XR ---
EXAMINATION TYPE: XR lumbosacral spine min 4V DATE OF EXAM: 09/27/2020 COMPARISON: NONE HISTORY: Back pain TECHNIQUE: 5 views FINDINGS: Lumbar vertebra have normal alignment. Disc spaces are fairly normal. Posterior elements ar e intact. There is no compression fracture. Sacroiliac joints appear intact. IMPRESSION: Negative lumbar spine exam. No fracture.
--- NOTE | 2020-09-27 14:14 | XR ---
EXAMINATION TYPE: XR Hip LT and AP Pelvis DATE OF EXAM: 09/27/2020 COMPARISON: 08/25/2017 HISTORY: Pain TECHNIQUE: 3 views FINDINGS: Proximal left femur is intact. Hip joint space is fairly well-maintained. I see no fracture nor dislocation. Sacroiliac joint appears normal. There are phleboliths in the pelvis. IMPRESSION: Normal left hip exam. No change.
[2020-09-27 14:27] LABS: Erythrocyte Sedimentation Rate 8 mm/hr (0-20)
[2020-09-27] MEDS ORDERED: methylPREDNISolone SOD SUCCI 125 MG/2 ML VIAL IV STA (14:55)
[2020-09-27 15:22] VITALS: BP 142/86; PULSE 87; TEMP 98.7
== END 2020-09-27 15:23 | disposition home or self-care (01) ==
LOC: EC 12:46
DX: M54.32 Sciatica, left side (principal); M79.7 Fibromyalgia; Z87.891 Personal history of nicotine dependence; Z88.5 Allergy status to narcotic agent; Z88.6 Allergy status to analgesic agent; Z88.1 Allergy status to other antibiotic agents
CPT/HCPCS: 36415; 80053; 85652; 82550; 85025; 86140; 72110; 73502; 99284; 96374; 96375; J2930; J1885

== ENCOUNTER → 2021-07-31 | Outpatient (CLI) | payer MEDICARE ==
--- NOTE | 2021-08-01 15:26 | XR ---
EXAMINATION TYPE: XR Hip Bilateral Complete DATE OF EXAM: 07/31/2021 COMPARISON: None HISTORY: Slip and fall bilateral hip pain TECHNIQUE: Bilateral hips 2 views each FINDINGS: Femoral heads articulate with the acetabulum. No acute fractures or dislocations are eviden t. Symphysis pubis within the [id number] is normal. IMPRESSION: 1. Normal bilateral hips. 2. Follow-up can be performed as clinically indicated
--- NOTE | 2021-08-02 13:48 | CT ---
EXAMINATION TYPE: CT lumbar spine wo con DATE OF EXAM: 07/31/2021 COMPARISON: HISTORY: Left sided back and hip pain CT DLP: 957 mGycm CONTRAST: CT scan of the lumbar is performed , patient injected with mL of . TECHNIQUE: CT of the lumbar spine is performed on a spiral scan at 3 mm thick sections. Reconstructed images are performed in the coronal and sagittal planes. FINDINGS: T12-L1: No focal disc herniation or significant disc bulge is evident. No spinal canal stenosis or neural foraminal stenosis is present. L1-L2: No focal disc herniation or significant disc bulge is evident. No spinal canal stenosis or n eural foraminal stenosis is present L2-L3: No focal disc herniation or significant disc bulge is evident. No spinal canal stenosis or n eural foraminal stenosis is present L3-L4: No focal disc herniation or significant disc bulge is evident. No spinal canal stenosis or n eural foraminal stenosis is present L4-L5: Very minimal disc bulge may be present L4-5 with anterior thecal sac contact. No AP spinal can al stenosis is present. Neural foramen are patent. L5-S1: No focal disc herniation or significant disc bulge is evident. No spinal canal stenosis or n eural foraminal stenosis is present Vertebral alignment appears normal. Disc heights are preserved. Vertebral body heights are preserved. No suspicious acute osseous abnormality evident. Mild facet change may be present off 34 through L5- S1. IMPRESSION: 1. Minimal disc bulge L4-5. 2. Mild facet changes lower lumbar spine.
== END | disposition home or self-care (01) ==
LOC: RADCTMAIN 16:05
PROVIDERS: ATTEND Family Medicine
DX: M51.26 Other intervertebral disc displacement, lumbar region (principal); M25.551 Pain in right hip; M25.552 Pain in left hip; W01.0XXA Fall on same level from slipping, tripping and stumbling without subsequent striking against object, initial encounter
CPT/HCPCS: 72131; 73521

== ENCOUNTER → 2021-11-17 | Outpatient (CLI) | payer MEDICARE ==
--- NOTE | 2021-11-18 09:12 | MM ---
Reason for exam: screening (asymptomatic). Last mammogram was performed 3 years and 6 months ago. History: Patient is postmenopausal. Family history of premenopausal breast cancer in sister at age 38. Excisional biopsy of the left breast, 2000. Physical Findings: A clinical breast exam by your physician is recommended on an annual basis and results should be correlated with mammographic findings. MG Screening Mammo w CAD Bilateral CC and MLO view(s) were taken. Prior study comparison: May 29, 2018, mammogram, performed at [facility]. February 03, 2017, mammogram, performed at [facility]. There are scattered fibroglandular densities. There is no discrete abnormality. No significant changes when compared with prior studies. ASSESSMENT: Negative, BI-RAD 1 RECOMMENDATION: Routine screening mammogram of both breasts in 1 year.
== END | disposition home or self-care (01) ==
LOC: RADMAMWWP 11:45
PROVIDERS: ATTEND Family Medicine
DX: Z12.31 Encounter for screening mammogram for malignant neoplasm of breast (principal); Z78.0 Asymptomatic menopausal state; Z80.3 Family history of malignant neoplasm of breast
CPT/HCPCS: 77067

== ENCOUNTER → 2021-12-14 | Outpatient (CLI) | payer MEDICARE ==
[2021-12-14 18:06] LABS: Basophils # (A) 0.07 X 10*3/uL (0.00-0.10); Basophils % (A) 0.9 %; Eosinophils # (A) 0.11 X 10*3/uL (0.04-0.35); Eosinophils % (A) 1.4 %; HCT 44.9 % (37.2-46.3); HGB 14.6 g/dL (12.0-15.0); Immature Grans, Automated 0.3 %; Lymphocytes # (A) 2.54 X 10*3/uL (0.90-5.00); Lymphocytes % (A) 33.2 %; MCH 31.1 pg (27.0-32.0); MCHC 32.5 g/dL (32.0-37.0); MCV 95.5 fL (80.0-97.0); Mean Platelet Volume 8.7 fL (9.5-12.2); Monocytes # (A) 0.69 X 10*3/uL (0.20-1.00); NRBC Per 100 WBC 0 /100 WBCS (0.0-0.0); Neutrophils # (A) 4.23 X 10*3/uL (1.80-7.70); Neutrophils % (A) 55.2 %; Platelet Count 273 X 10*3/uL (140-440); RDW 12.1 % (11.5-14.5); WBC 7.66 X 10*3/uL (4.50-10.00)
[2021-12-14 18:40] LABS: African American GFR (CKD) 85.7 (60.0-200.0); Albumin/Globulin Ratio 2.75 (1.60-3.17); Anion Gap 12.7 mmol/L (10.00-18.00); BUN/Creat Ratio 19.42 Ratio (12.00-20.00); Blood Urea Nitrogen 16.7 mg/dL (9.0-27.0); Calcium 9.1 mg/dL (8.7-10.3); Carbon Dioxide 23.4 mmol/L (20.0-27.5); Globulin 1.4 g/dL (1.6-3.3); Non-African American GFR(CKD) 73.9 (60.0-200.0); Potassium 4.7 mmol/L (3.5-5.5); T4, Free (Free Thyroxine) 1.12 ng/dL (0.800-1.800); Total Bilirubin 0.8 mg/dL (0.30-1.20); Total Protein 5.4 g/dL (6.2-8.2)
== END | disposition home or self-care (01) ==
LOC: LABWHC1 11:25
PROVIDERS: ATTEND Psychiatry & Neurology Neurology
DX: E55.9 Vitamin D deficiency, unspecified (principal); E53.9 Vitamin B deficiency, unspecified; G43.909 Migraine, unspecified, not intractable, without status migrainosus; R41.3 Other amnesia; H53.9 Unspecified visual disturbance
CPT/HCPCS: 36415; 80053; 82306; 82607; 84207; 84439; 84443; 84481; 85025

== ENCOUNTER → 2023-07-15 | Outpatient (CLI) | payer MEDICARE | END | disposition home or self-care (01) | LOC: LABWHC1 10:27 | PROVIDERS: ATTEND Psychiatry & Neurology Neurology | DX: I49.9 Cardiac arrhythmia, unspecified (principal) | CPT/HCPCS: 36415; 93005 ==

== ENCOUNTER → 2023-08-24 | Outpatient (CLI) | payer MEDICARE ==
--- NOTE | 2023-08-24 08:57 | MM ---
Reason for Exam: Clinical finding. Last mammogram was performed 1 year(s) and 9 month(s) ago. Indicated Problems: Pain of the left side (Global) for 3 Month(s). Patient History: Menarche at age 14. First Full-Term at age 21. Left ovary removed at age 42. Right ovary removed at age 42. Hysterectomy at age 42. Postmenopausal. 2000, Excisional Biopsy on the Left side. Sister had breast cancer, age 38. Risk Values: Denisa 5 year model risk: 3.2%. NCI Lifetime model risk: 15.4%. Prior Study Comparison: 11/21/1996 Screening Mammogram, Unknown. 08/27/1999 Bilateral Special View Mammogram, [facility]. 08/27/1999 Left Diagnostic Ultrasound, [facility]. 09/21/2005 Bilateral Screening Mammogram, [facility]. 02/03/2017 Screening Mammogram, [facility]. 05/29/2018 Screening Mammogram, [facility]. 11/17/2021 Bilateral Screening Mammogram, [facility]. Tissue Density: There are scattered fibroglandular densities. Findings: Analyzed By CAD. Pattern appears symmetrical. Benign spherical calcification is within the right breast. No suspicious groups of microcalcifications, spiculated or lobular masses, architectural distortion or other secondary signs of malignancy are mammographically apparent. Overall Assessment: Benign, BI-RAD 2 Management: Screening Mammogram of both breasts in 1 year. A negative mammogram report should not preclude additional follow up of suspicious palpable abnormalities. Patient should continue monthly self breast exam. A clinical breast exam by your physician is recommended on an annual basis and results should be correlated with mammographic findings. Electronically signed and approved by: Lul Elias D.O. Radiologis
--- NOTE | 2023-08-24 19:30 | BD ---
EXAMINATION TYPE: Axial Bone Density DATE OF EXAM: 08/24/2023 CLINICAL HISTORY: 62 years old Female. ICD-10 CODE: Z78.0 POST MENOPAUSAL Height: 62.5 Weight: 208 FRAX RISK QUESTIONS: History of Fracture in Adulthood: yes Secondary Osteoporosis: yes 3. Menopause before 45: yes RISK FACTORS HISTORY OF: hx of rt ankle and lt shoulder fractures as an adult History of Wrist Fracture: hx of rt wrist fx as an adult Postmenopausal woman: total hyst at age 39 yrs old Hyperparathyroidism: no Adrenal Insufficiency: no MEDICATIONS: Additional Medications: takes vitamin D and calcium, Additional History: recent wt loss, early menopause, EXAM MEASUREMENTS: Bone mineral densitometry was performed using the [employer] System. Bone mineral density as measured about the Lumbar spine is: ----- L1-L4(G/cm2): 0.970 T Score Values are as follows: ----- L1: -2.8 ----- L2: -1.9 ----- L3: -1.5 ----- L4: -1.2 ----- L1-L4: -1.8 Z Score Values are as follows: ----- L1: -2.6 ----- L2: -1.6 ----- L3: -1.2 ----- L4: -0.9 ----- L1-L4: -1.5 Bone mineral density is her first DEXA study at [facility]. Bone mineral density about the R hip (g/cm2): 0.828 Bone mineral density about the L hip (g/cm2): 0.869 T Score values are as follows: -----R Neck: -2.1 -----L Neck: -2.4 -----R Total: -1.4 -----L Total: -1.1 Z Score values are as follows: -----R Neck: -1.5 -----L Neck: -1.8 -----R Total: -1.2 -----L Total: -0.8 Bone mineral density first DEXA at [facility]. FRAX%s: The graph provided illustrates a 17.5% chance for a major osteoporotic fx and a 3.1% chance f or the hips probability for fx in 10 years time. IMPRESSION: Osteopenia (T Score between -2.5 and -1). There is slightly increased risk of fracture and the patient may be considered for treatment. Re-Screen 2-5 years. NOTE: T-SCORE=SD OF THE YOUNG ADULT MEAN.
== END | disposition home or self-care (01) ==
LOC: RADMAMWWP 08:29
PROVIDERS: ATTEND Family Medicine
DX: R92.323 Mammographic fibroglandular density, bilateral breasts (principal); M81.0 Age-related osteoporosis without current pathological fracture; M85.89 Other specified disorders of bone density and structure, multiple sites; N64.4 Mastodynia; Z80.3 Family history of malignant neoplasm of breast; Z78.0 Asymptomatic menopausal state
CPT/HCPCS: 77080; 77066; G0279; 77062

== ENCOUNTER 2024-01-06 08:29 | Emergency (ER) | payer MEDICARE ==
[2024-01-06] MEDS: SODIUM CHLORIDE 0.9% 1,000 ML IV STA (08:51)
[2024-01-06] MEDS: LIDOCAINE 1% INJ 10MG/ML (20 ML MDV) SQ ONE (08:52)
[2024-01-06] MEDS: KETOROLAC 15 MG/ML 1 ML VIAL IVP STA (08:55)
[2024-01-06] MEDS: ONDANSETRON 4 MG/2 ML VIAL IVP STA (08:56)
[2024-01-06] MEDS: BUPIVACAINE (PF) 0.5% 30 ML VIAL SQ ONE (09:02)
--- NOTE | 2024-01-06 09:14 | ED ---
Upper Extremity HPI - General Chief Complaint: Extremity Injury, Upper Stated Complaint: R ring finger laceration Time Seen by Provider: 01/06/24 08:39 Source: patient, family, RN notes reviewed Mode of arrival: ambulatory Limitations: no limitations - History of Present Illness Initial Comments: This is a 63-year-old female who presents to the emergency department for a right fourth finger injury. States she was walking her dog down a ramp when she tripped, and accidentally sliced off the tip of her right fourth finger, which she brought with her on ice in a plastic bag. Unsure what she may have caught her hand on to cause the injury. Denies hitting her head or sustaining any other injuries. Not taking any blood thinners. - Related Data Home Medications Medication Instructions Recorded Confirmed oxyCODONE HCL [oxyCODONE HCL (IR)] 30 mg PO 5XD PRN 10/09/18 10/09/18 Previous Rx's Medication Instructions Recorded predniSONE [Deltasone] 40 mg PO DAILY #8 tab 09/27/20 Cephalexin [Keflex] 500 mg PO Q6HR 10 Days #40 cap 01/06/24 Allergies Allergy/AdvReac Type Severity Reaction Status Date / Time acetaminophen [From Vicodin] Allergy Swelling Verified 01/06/24 08:36 hydrocodone [From Vicodin] Allergy Swelling Verified 01/06/24 08:36 morphine Allergy Rash/Hives Verified 01/06/24 08:36 nitrofurantoin Allergy Swelling Verified 01/06/24 08:36 [From Macrobid] oxycodone [From Percocet] Allergy Swelling Verified 01/06/24 08:36 pregabalin [From Lyrica] Allergy Swelling Verified 01/06/24 08:36 Review of Systems ROS Statement: Those systems with pertinent positive or pertinent negative responses have been documented in the HPI. ROS Other: All systems not noted in ROS Statement are negative. Past Medical History Past Medical History: Fibromyalgia Additional Past Medical History / Comment(s): chronic back pain History of Any Multi-Drug Resistant Organisms: None Reported Past Surgical History: Section, Hysterectomy, Orthopedic Surgery Past Psychological History: No Psychological Hx Reported Smoking Status: Former smoker Past Alcohol Use History: Occasional Past Drug Use History: None Reported General Exam Limitations: no limitations General appearance: alert, in no apparent distress Head exam: Present: atraumatic, normocephalic, normal inspection Respiratory exam: Present: normal lung sounds bilaterally. Absent: respiratory distress, wheezes, rales, rhonchi, stridor Cardiovascular Exam: Present: regular rate, normal rhythm, normal heart sounds. Absent: systolic murmur, diastolic murmur, rubs, gallop, clicks Extremities exam: Present: other (Amputation of the tip of the right fourth finger. Minor active bleeding.) Neurological exam: Present: alert, oriented X3, CN II-XII intact Psychiatric exam: Present: normal affect, normal mood Course Vital Signs 01/06/24 01/06/24 01/06/24 08:34 09:53 11:15 Temperature 98 F 98.2 F 98.1 F Pulse Rate 66 65 67 Respiratory 18 16 16 Rate Blood Pressure 133/76 138/93 129/87 O2 Sat by Pulse 98 98 98 Oximetry Procedures - Laceration Laceration #1 Consent Obtained: verbal consent Indication: laceration Site: hand Size (cm): 3 Description: flap Anesthetic Used: lidocaine 1% Anesthesia Technique: nerve block Amount (mls): 4 Pre-repair: wound explored, irrigated extensively Type of Sutures: nylon Size of Sutures: 5-0 Number of Sutures: 7 Technique: simple, interrupted - Nerve Block Consent Obtained: verbal consent Local Anesthetic Used: Lidocaine 1% (mixed with Sensorcaine 0.5%) Amount of anesthesia used: 4 Side: right Nerve Blocks: digital Procedure Successful: Yes Medical Decision Making - Medical Decision Making This is a 63 year old female who presents to the emergency department for a fingertip amputation. Was pt. sent in by a medical professional or institution? @ -No Did you speak to anyone other than the patient for history? @ -No Did you review nursing and triage notes? @ -Yes, and I agree, it is accurate with regards to the patient's symptoms. Were old charts reviewed? @ -No Differential Diagnosis? @ -Differential Musculoskeletal: Muscular strain, contusion, ligament sprain, fracture, arthritis, septic arthritis, bursitis, cellulitis, muscle spasm, nerve compression, DVT, arterial occlusion, herpes zoster, electrolyte abnormality, tumor.... This is not meant to be in all inclusive list EKG interpreted by me (3pts min.)? @ -Not obtained X-rays interpreted by me (1pt min.)? @ -XR of the right fourth finger obtained. My interpretation identifies an amputation of the distal phalanx. CT interpreted by me (1pt min.)? @ -Not obtained U/S interpreted by me (1pt. min.)? @ -Not obtained What testing was considered but not performed? (CT, X-rays, U/S, labs)? Why? @ -None What meds were considered but not given? Why? @ -None Did you discuss the management of the patient with other professionals? @ -Yelena with [facility], who advised that the patient could follow up in their office outpatient. Did you reconcile home meds? @ -No Was smoking cessation discussed for >3mins.? @ -No Was critical care preformed (if so, how long)? @ -No Were there social determinants of health that impacted care today? How? (Homelessness, low income, unemployed, alcoholism, drug addiction, transportation, low edu. Level, literacy, decrease access to med. care, shelter, rehab)? @ -No Was there de-escalation of care discussed even if they declined? (Discuss DNR or withdrawal of care, Hospice)? @ -No What co-morbidities impacted this encounter? (DM, HTN, Smoking, COPD, CAD, Cancer, CVA, Hep., AIDS, mental health diagnosis, sleep apnea, morbid obesity)? @ -Fibromyalgia Was patient admitted / discharged? @ -Discharged. X-ray of the right fourth finger demonstrates amputation of the fourth digit distal phalanx shaft. Lidocaine mixed with bupivacaine was used for a digital block to numb the finger and achieve pain control. Patient given cefazolin in the emergency department. Tetanus vaccine was updated. Patient did bring the tip of the finger with her, however she was advised that this would not be salvageable. She did have a flap of skin that was folded over the finger and sutured to protect the area. Case discussed with orthopedics who advised follow-up in their office. Case management made the patient an appointment for 01/09. Her finger was bandaged and put in a splint. She does already take oxycodone and Mobic at home, which she will continue to do. Prescription for Keflex provided with dosing instructions reviewed. Patient discharged home in stable condition. Undiagnosed new problem with uncertain prognosis? @ -None Drug Therapy requiring intensive monitoring for toxicity (Heparin, Nitro, Insulin, Cardizem)? @ -None Were any procedures done? @ -Digital block and sutures Diagnosis/symptom? @ -Finger amputation, fall Acute, or Chronic, or Acute on Chronic? @ -Acute Uncomplicated (without systemic symptoms) or Complicated (systemic symptoms)? @ -Uncomplicated Side effects of treatment? @ -None Exacerbation, Progression, or Severe Exacerbation] @ -Not applicable Poses a threat to life or bodily function? @ -This will limit her use of the right hand for the mean time. Return precautions reviewed in depth, the patient is instructed to return to the emergency department with any new, worsening, or concerning symptoms. Patient verbalized understanding. This case was discussed in detail with the attending ED physician, Dr. Sarabia. Presentation, findings, and treatment plan discussed in detail as well. - Radiology Data Radiology results: report reviewed, image reviewed Disposition Clinical Impression: Amputation of finger of right hand Disposition: HOME SELF-CARE Instructions (If sedation given, give patient instructions): Care For Your Stitches (ED) Additional Instructions: Return to the emergency department with any new, worsening, or concerning symptoms. Take the antibiotic as scheduled for 10 days. Follow up with orthopedics as scheduled on 01/09 at 9:30 AM. Prescriptions: Cephalexin [Keflex] 500 mg PO Q6HR 10 Days #40 cap Is patient prescribed a controlled substance at d/c from ED?: No Referrals: Varsha Valentin DO [Doctor of Osteopathic Medicine] - 01/10/24 9:30 am (Please call prior to appointment to discuss balance with office. At appintment bring insurance and ID cards. You will have paperwork to complete. ) Edgar Gomez MD [Primary Care Provider] - 1-2 days Time of Disposition: 10:49
--- NOTE | 2024-01-06 09:29 | XR ---
EXAMINATION TYPE: XR finger RT DATE OF EXAM: 01/06/2024 9:23 AM CLINICAL INDICATION:Female, 63 years old with history of right 4th finger amputation; [facility] COMPARISON: None TECHNIQUE: XR finger RT Frontal, lateral and oblique views were obtained. FINDINGS/IMPRESSION: There is amputation of the fourth digit distal phalanx shaft width couple bony fragments present. No additional fractures.
[2024-01-06] MEDS: DIPH,PERTUS(ACELL)TETVAC-LF 0.5 ML VIAL IM ONE (09:49)
[2024-01-06 09:59] VITALS: RESP 16
[2024-01-06 11:29] VITALS: BP 129/87; PULSE 67; TEMP 98.1
== END 2024-01-06 11:16 | disposition home or self-care (01) ==
LOC: EC 08:29
DX: S68.114A Complete traumatic metacarpophalangeal amputation of right ring finger, initial encounter (principal); M79.7 Fibromyalgia; Z23 Encounter for immunization; Z88.6 Allergy status to analgesic agent; Z88.5 Allergy status to narcotic agent; Z88.8 Allergy status to other drugs, medicaments and biological substances; Z87.891 Personal history of nicotine dependence; W26.8XXA Contact with other sharp object(s), not elsewhere classified, initial encounter; Y93.K1 Activity, walking an animal
CPT/HCPCS: 73140; 90715; 12002; 99283; 96365; 96375 ×2; 96361; 96372; 90471; J2405; J0690; J2001; J1885; J0665

== ENCOUNTER → 2024-06-22 | Outpatient (CLI) | payer MEDICARE ==
--- NOTE | 2024-06-22 10:44 | MR ---
EXAMINATION TYPE: MR lumbar spine wo/w con DATE OF EXAM: 06/22/2024 9:18 AM CLINICAL INDICATION: Female, 63 years old with history of M51.26 DISC DISPLACEMENT, LUMBAR REGION; PH H, Lower back pain, LLE radiculopathy, began after getting injections in lower back. COMPARISON: 03/19/2016 TECHNIQUE: Multi planar, multi sequence imaging was performed utilizing: T1-weighted, T2-weighted, a nd turbo inversion recovery imaging of the lumbar spine. IV Contrast: 8 cc Gadavist. (None if empty) FINDINGS: Alignment: The lumbar vertebral bodies have preserved heights and alignment. Cord: The conus medullaris and the distal spinal cord appear unremarkable with regards to their signa l intensity and morphology. Bones/Discs: Mild degeneration changes throughout the spine with osteophyte formation and facet joint arthropathy. Intervertebral disc signal is maintained. No abnormal inversion recovery signal to sugg est bony edema. T12-L1: No evidence of significant spinal canal stenosis or neural foraminal stenosis. L1-L2: No evidence of significant spinal canal stenosis or neural foraminal stenosis. L2-L3: No evidence of significant spinal canal stenosis or neural foraminal stenosis. L3-L4: No evidence of significant spinal canal stenosis or neural foraminal stenosis. L4-L5: Disc bulge and facet joint arthropathy result in mild spinal canal and mild bilateral neural f oraminal stenosis. L5-S1: The disc has a rounded posterior morphology without significant spinal canal stenosis. Facet j oint arthropathy with mild bilateral neural foraminal stenosis. No significant spinal canal or neural foraminal stenosis in the remainder of the visualized levels. Other findings: None. IMPRESSION: 1. No definitive evidence of disc herniation or significant spinal canal stenosis. 2. Mild disc degeneration with associated osteoarthritic changes. [facility], , 06/22/2024 10:42 AM
== END | disposition home or self-care (01) ==
LOC: RADMRIMAIN 08:23
PROVIDERS: ATTEND Family Medicine
DX: M51.16 Intervertebral disc disorders with radiculopathy, lumbar region (principal); M47.26 Other spondylosis with radiculopathy, lumbar region
CPT/HCPCS: 72158; A9585

== ENCOUNTER → 2024-08-21 | Outpatient (CLI) | payer MEDICARE ==
--- NOTE | 2024-08-22 21:51 | MR ---
EXAMINATION TYPE: MR liver wo/w con and mrcp DATE OF EXAM: 08/21/2024 8:55 PM COMPARISON: 07/31/2021, 06/22/2024. CLINICAL INDICATION: Female, 63 years old with history of R80.7; PHH, Elevated bilirubin, Abd pain, d ark urine, sweating TECHNIQUE MRI ABDOMEN WITH CONTRAST: Multiplanar multi-sequence imaging was performed without and wit h IV contrast/gadolinium. The patient was given 8.5 cc Gadavist gadolinium intravenously and dynamic post-VIBE (volumetric interpolated breath-hold gradient recall echo) imaging was performed. IV Contrast: 8.5 mL Gadavist (None, if empty) TECHNIQUE MRCP ABDOMEN WITHOUT CONTRAST: Multi planar, T2-weighted imaging with and without fat satur ation and chemical shift imaging was performed of the abdomen. Then, heavily T2 weighted imaging (love f-Fourier acquisition single-shot turbo spin-echo) was utilized in order to study the biliary system. Maximum intensity projection images were reconstructed from the original data of the biliary tree. 3D reconstructions and MIP imaging performed on a separate workstation. FINDINGS: MRCP: * The intrahepatic ducts mildly dilated centrally * The extrahepatic ducts mildly dilated * The common hepatic duct measures 9 mm in size. * The common bile duct at the level of the pancreatic head measures 4 mm in size. * The pancreatic duct is normal. * The gallbladder appears surgically absent with cystic duct remnant. Abdomen: Liver: No evidence for hepatic steatosis or cirrhosis. Pancreas: No ductal dilation. No evidence for solid mass. Spleen: Normal for size. Adrenal glands: Unremarkable. Kidneys: No evidence for obstructive uropathy. No suspicious renal masses. Stomach and Bowel: No evidence for bowel wall thickening or evidence for obstruction. Retroperitoneum/Peritoneum: No evidence of pneumoperitoneum or free fluid. Vasculature: No aortic aneurysm. Musculoskeletal: The osseous structures appear intact. Lymph Nodes: No gross evidence for lymphadenopathy. Abdominal wall: Unremarkable. IMPRESSION: 1. No evidence to suggest ductal stricture, choledocholithiasis, or biliary ductal dilatation. 2. No abnormal postcontrast enhancement. 3. Postcholecystectomy changes with mild extrahepatic and central intrahepatic biliary dilation. Thi s can be seen in normal post cholecystectomy physiology. [facility], , 08/22/2024 9:49 PM
== END | disposition home or self-care (01) ==
LOC: RADMRIMAIN 20:15
PROVIDERS: ATTEND Family Medicine
DX: E80.7 Disorder of bilirubin metabolism, unspecified (principal); Z98.890 Other specified postprocedural states
CPT/HCPCS: 74183; A9585

== ENCOUNTER 2024-10-08 09:47 | Day surgery (SDC) | payer MEDICARE ==
[~2024-10-08 09:47] MED LIST: ALPRAZolam 0.25 MG TAB PO PRN; ALPRAZolam 0.5 MG TAB PO PRN; HEPARIN SODIUM,PORCINE (1 ML) 2,500 UNIT in SODIUM CHLORIDE 0.9% 250 ML IRRIGATION PRN; HEPARIN SODIUM,PORCINE 10,000 UNIT in SODIUM CHLORIDE 0.9% 1,000 ML IRRIGATION PRN; NITROGLYCERIN SL TABS 0.4 MG TAB SUBLINGUAL PRN
[2024-10-08] MEDS: SODIUM CHLORIDE 0.9% 1,000 ML in EMPTY BAG 1 BAG IV SCH (10:18)
[2024-10-08] MEDS: IV FLUID CONTINUATION 1,000 ML IV ONE (10:18)
[2024-10-08] MEDS: ASPIRIN 325 MG TAB PO STA (10:29)
[2024-10-08 10:32] LABS: Basophils % (A) 0 %; Eosinophils # (A) 0.1 k/uL (0-0.7); Eosinophils % (A) 2 %; HCT 38.2 % (34.0-46.0); HGB 13.2 gm/dL (11.4-16.0); Lymphocytes # (A) 2.5 k/uL (1.0-4.8); Lymphocytes % (A) 40 %; MCH 29.6 pg (25.0-35.0); MCHC 34.6 g/dL (31.0-37.0); MCV 85.4 fL (80.0-100.0); Mean Platelet Volume 6.7; Monocytes # (A) 0.5 k/uL (0-1.0); Monocytes % (A) 8 %; Neutrophils # (A) 2.9 k/uL (1.3-7.7); Neutrophils % (A) 47 %; Platelet Count 288 k/uL (150-450); RBC 4.47 m/uL (3.80-5.40); RDW 12.9 % (11.5-15.5); WBC 6.2 k/uL (3.8-10.6)
[2024-10-08 11:06] LABS: African American GFR (CKD) >90 (>60 ml/min/1.73 sqM); Anion Gap 7 mmol/L; Blood Urea Nitrogen 28 mg/dL (7-17); Calcium 9.8 mg/dL (8.4-10.2); Carbon Dioxide 26 mmol/L (22-30); Chloride 106 mmol/L (98-107); Glucose 92 mg/dL (74-99); Non-African American GFR(CKD) >90 (>60 ml/min/1.73 sqM); Potassium 4.1 mmol/L (3.5-5.1); Sodium 139 mmol/L (137-145)
[2024-10-08] MEDS: HEPARIN SODIUM,PORCINE 10,000 UNIT in SODIUM CHLORIDE 0.9% 1,000 ML IRRIGATION ONE (12:42)
[2024-10-08] MEDS: HEPARIN SODIUM,PORCINE (1 ML) 2,500 UNIT in SODIUM CHLORIDE 0.9% 250 ML IRRIGATION ONE (12:42)
[2024-10-08] MEDS: fentaNYL (PF) 50 MCG/ML 2 ML AMP IVP ONE ×2 (12:48→12:56)
[2024-10-08] MEDS: MIDAZOLAM 2 MG/2 ML VIAL IVP ONE ×2 (12:48→13:00)
[2024-10-08] MEDS: LIDOCAINE 1% INJ 10MG/ML (20 ML MDV) SQ ONE ×3 (12:51→12:56)
[2024-10-08] MEDS ORDERED: RX INFO: IV CONTRAST WAS GIVEN 1 EACH MISC MISCELLANE PRN (13:13)
--- NOTE | 2024-10-08 13:16 | P.PCN ---
Date of Procedure: 10/08/24 Operative Findings: CARDIAC CATHETERIZATION PERFORMING PHYSICIAN: Daniel Espana MD, RPVI PROCEDURE PERFORMED: 1. Selective right and left coronary angiogram 2. Left heart catheterization and right heart catheterization 3. Ultrasound-guided access of the right common femoral artery and ultrasound- guided access of the right common femoral artery and right common femoral vein INDICATION: Shortness of breath concerning for angina COMPLICATION: None APPROACH: Right common femoral artery LEVEL OF SEDATION: Moderate with sedation in length of 19 minutes PROCEDURE DESCRIPTION: After obtaining an informed consent, the patient was brought to cardiac clinical laboratory manager. Local anesthesia was performed using lidocaine subcutaneously. The right common femoral artery was cannulated using micropuncture technique under ultrasound guidance, the guidewire passed easily, following that we advanced a 6 Salvadorean sheath dilator assembly, the wire and dilator were removed and sheath was flushed. Subsequently the right common femoral vein was cannulated using the same technique and 6 Salvadorean sheath was placed. Right heart catheterization was performed using 6 Salvadorean [place] catheter Selective right and left coronary angiogram using a 6-Salvadorean JR4 and JL catheters. Following that we did left heart catheterization using 6-Salvadorean pigtail catheter. The procedure was completed there was no complication. SELECTIVE CORONARY ANGIOGRAM: The right coronary artery: Large-caliber vessel and a dominant vessel with no evidence of high-grade stenosis Left main: Appears to be angiographically normal The left circumflex: Large-caliber vessel with mild disease involving the proximal portion The left anterior descending artery: Large-caliber vessel in the proximal portion and become medium caliber vessel in the midportion. Gives rise into a large diagonal branch which work is dual LAD system HEMODYNAMICS: The pulmonary capillary wedge pressure was 15 mmHg The LVEDP was 20 mmHg PA pressures were as follows systolic of 46 and diastolic of 18 and mean of 29 mmHg RV pressures were as follows systolic of 48 and end-diastolic of 11 mmHg Right atrial pressure was 10 mmHg CONCLUSION: 1. Mild nonobstructive coronary artery disease 2. Elevated biventricular filling pressures 3. Mild pulmonary hypertension POSTPROCEDURE MANAGEMENT: Medical treatment
[2024-10-08] MEDS: SODIUM CHLORIDE 0.9% 1,000 ML IV SCH (17:30)
[2024-10-08 21:24] VITALS: BP 122/70; PULSE 86; RESP 16; TEMP 98.4
== END 2024-10-08 21:15 ==
LOC: CATHCVL 09:47 → 6NMEDSUR 13:10 → CATHCVL 21:15
PROVIDERS: ATTEND Internal Medicine Interventional Cardiology
DX: I25.10 Atherosclerotic heart disease of native coronary artery without angina pectoris (principal); I27.20 Pulmonary hypertension, unspecified; F17.210 Nicotine dependence, cigarettes, uncomplicated; Z88.5 Allergy status to narcotic agent; Z88.6 Allergy status to analgesic agent; Z88.1 Allergy status to other antibiotic agents; Z79.82 Long term (current) use of aspirin; Z79.899 Other long term (current) drug therapy
CPT/HCPCS: 93460; 80048; 85025; C1769; C1894; C1751; J2250; J1644 ×2; J2003; J3010

== ENCOUNTER 2025-01-09 09:51 | Inpatient (IN) | payer MEDICARE ==
[2025-01-09] MEDS: HYDROmorphone 1 MG/ML 1 ML SYRINGE IVP STA ×2 (10:19→11:28)
[2025-01-09] MEDS: SODIUM CHLORIDE 0.9% 1,000 ML IV ONE ×2 (10:33→11:05)
--- NOTE | 2025-01-09 10:53 | XR ---
EXAMINATION TYPE: XR forearm bilateral DATE OF EXAM: 01/09/2025 10:34 AM COMPARISON: None. CLINICAL INDICATION: Female, 64 years old with history of dog bite, fracture, pain TECHNIQUE: 2 view(s) obtained. FINDINGS: Left forearm: There is transverse fracture of the distal third diaphysis right radius. There is an ob lique fracture of the distal diaphysis ulna. Step-off is noted at each fracture. Bayonet deformity of the radius is evident. There is dorsal angulation of the distal fracture fragments of the radius and ulna. There is a disruption of the cortex of the proximal radius near the radial head at the level of the s oft tissue injury. Puncture fracture should be considered of the proximal radius. Soft tissue injury is evident over the more proximal forearm. No radiopaque foreign bodies are eviden t. Right forearm: There is an old ulnar styloid fracture present. No acute fractures or dislocations of the right forearm are evident. No radiopaque foreign bodies evident. IMPRESSION: 1. Distal third radial fracture and distal ulnar fractures left forearm with step offs and dorsal an gulation of the distal fracture fragments. 2. Soft tissue injury over the more proximal left forearm. A focal puncture fracture of the proximal left radius should be considered on one view. 3. Soft tissue swelling and injury proximal right forearm. [facility], Workstation: [facility], 01/09/2025 10:51 AM
[2025-01-09] MEDS: PROPOFOL 10 MG/ML 20 ML VIAL IV ONE ×8 (11:06→11:35)
--- NOTE | 2025-01-09 12:34 | ED ---
Trauma HPI - General Chief Complaint: Extremity Injury, Upper Stated Complaint: dog bite, fall Time Seen by Provider: 01/09/25 10:00 Source: patient, EMS Mode of arrival: EMS - History of Present Illness Initial Comments: 64-year-old female who presents to the emergency department with dog bites. She states that she was eating a muffin around 9:45 AM when her dog attacked her. States dog was previously never aggressive. She fell out of a chair and onto her left arm where the dog continued to involve both of her forearms. Patient had obvious open fracture to the left forearm. Patient is right-hand dominant. She has multiple deep lacerations to the bilateral forearms. She does not take any blood thinners. She denies hitting her head or losing consciousness throughout the event. Patient received 2 g of Rocephin by EMS en route to the hospital as well as 100 mcg of fentanyl and 4 mg of Zofran. She is up-to-date on her tetanus. States that the dog is up-to-date on their vaccinations. Last oral intake was around 730 this morning when patient ate breakfast. - Related Data Home Medications Medication Instructions Recorded Confirmed oxyCODONE HCL [oxyCODONE HCL (IR)] 30 mg PO QID 10/09/18 01/09/25 Aspirin [Adult Low Dose Aspirin EC] 81 mg PO DAILY 10/04/24 01/09/25 Losartan/Hydrochlorothiazide 1 tab PO DAILY 10/04/24 01/09/25 [Losartan-Hctz 100-12.5 mg Tab] Metoprolol Tartrate [Lopressor] 50 mg PO BID 10/04/24 01/09/25 Ergocalciferol [Vitamin D2 (1250 1,250 mcg PO MO 01/09/25 01/09/25 Mcg = [id number] Iu)] Escitalopram [Lexapro] 10 mg PO DAILY 01/09/25 01/09/25 Meloxicam [Mobic] 15 mg PO DAILY PRN 01/09/25 01/09/25 Tiotropium Br/Olodaterol HCl 2 puff INHALATION RT-DAILY 01/09/25 01/09/25 [Stiolto Respimat Inhaler (60)] Previous Rx's Medication Instructions Recorded Amoxic-Pot Clav 875-125Mg 1 tab PO Q12HR 7 Days #14 tab 01/15/25 [Augmentin 875-125] Meloxicam 7.5 mg PO DAILY #30 tab 01/15/25 Sennosides-Docusate Sodium 1 tab PO BID #60 tablet 01/15/25 [Senokot-S] traMADol HCl [Ultram] 50 mg PO Q6HR PRN #28 tab 01/15/25 Allergies Allergy/AdvReac Type Severity Reaction Status Date / Time hydrocodone [From Vicodin] Allergy Swelling Verified 01/09/25 13:24 morphine Allergy Rash/Hives Verified 01/09/25 13:24 nitrofurantoin Allergy Swelling Verified 01/09/25 13:24 [From Macrobid] oxycodone [From Percocet] Allergy Swelling Verified 01/09/25 13:24 pregabalin [From Lyrica] Allergy Swelling Verified 01/09/25 13:24 Review of Systems ROS Statement: Those systems with pertinent positive or pertinent negative responses have been documented in the HPI. ROS Other: All systems not noted in ROS Statement are negative. Past Medical History Past Medical History: Chest Pain / Angina, Fibromyalgia, Hypertension Additional Past Medical History / Comment(s): chronic back pain, left sided chest pain recently, with shortness of breath History of Any Multi-Drug Resistant Organisms: None Reported Past Surgical History: Section, Hysterectomy, Orthopedic Surgery Additional Past Surgical History / Comment(s): hand surgery on rt rt ankle surgery, plate and screws in neck. Past Anesthesia/Blood Transfusion Reactions: No Reported Reaction Past Psychological History: No Psychological Hx Reported Smoking Status: Former smoker Past Alcohol Use History: Rare Past Drug Use History: None Reported - Past Family History Father Family Medical History: No Reported History General Exam General appearance: alert, in distress Head exam: Present: atraumatic, normocephalic, normal inspection Eye exam: Present: normal appearance, PERRL, EOMI. Absent: scleral icterus, conjunctival injection, periorbital swelling ENT exam: Present: normal exam, mucous membranes moist Neck exam: Present: normal inspection. Absent: tenderness, meningismus, lymphadenopathy Respiratory exam: Present: normal lung sounds bilaterally. Absent: respiratory distress, wheezes, rales, rhonchi, stridor Cardiovascular Exam: Present: regular rate, normal rhythm, normal heart sounds. Absent: systolic murmur, diastolic murmur, rubs, gallop, clicks GI/Abdominal exam: Present: soft, normal bowel sounds. Absent: distended, tenderness, guarding, rebound, rigid Extremities exam: Present: tenderness (Tenderness is to the distal third of the left forearm where obvious deformity/open fracture is identified), normal capillary refill (Patient does have soft compartments with 2+ radial pulse), other (Patient has significant lacerations to the bilateral forearms on the anterior and dorsal surfaces. 8 linear lacerations to the right dorsal forearm with 4 lacerations and multiple punctures to the anterior right forearm. 2 large lacerations to the left anterior and 2 posterior left forearm) Neurological exam: Present: alert Psychiatric exam: Present: anxious Skin exam: Present: other (Lacerations of the bilateral forearms ranging in size from puncture wound measuring 5 mm up to 5 cm in size) Course Vital Signs 01/09/25 01/09/25 01/09/25 09:53 11:05 11:10 Temperature 97.6 F Pulse Rate 74 78 80 Respiratory 24 16 20 Rate Blood Pressure 148/90 178/107 144/62 O2 Sat by Pulse 92 L 94 L 89 L Oximetry 01/09/25 01/09/25 01/09/25 11:15 11:20 11:25 Temperature Pulse Rate 84 81 91 Respiratory 20 19 20 Rate Blood Pressure 127/93 O2 Sat by Pulse 98 96 97 Oximetry 01/09/25 01/09/25 01/09/25 11:30 11:35 11:40 Temperature Pulse Rate 92 95 89 Respiratory 20 22 22 Rate Blood Pressure 137/74 O2 Sat by Pulse 97 97 94 L Oximetry 01/09/25 01/09/25 01/09/25 11:45 12:00 12:15 Temperature Pulse Rate 80 94 73 Respiratory 24 22 24 Rate Blood Pressure 117/80 110/50 111/53 O2 Sat by Pulse 96 95 94 L Oximetry 01/09/25 01/09/25 01/09/25 12:30 12:45 13:07 Temperature Pulse Rate 85 80 98 Respiratory 20 24 20 Rate Blood Pressure 106/65 123/81 104/64 O2 Sat by Pulse 96 96 95 Oximetry Procedures - [place] Protocol (Time Out) Procedure Performed:: closed reduction to left forearm Performing Provider: Kira Roth Nurse: Laura Ambrosio Respiratory Therapist: Joanne Layton Patient Identification (2 identifiers required): Chart, Verbal, Arm Band, Name, Birthdate Patient/Legal Packing Room Supervisor has Confirmed: Identity, Site, Procedure, Consent Site: left forearm - Laceration Laceration #1 Indication: laceration Site: upper extremity Size (cm): 5 (Left upper extremity) Description: linear Depth: involves muscle layer Sedation/Analgesia: propofol Type of Sutures: nylon Size of Sutures: 5-0 Number of Sutures: 2 Technique: simple, interrupted Patient Tolerated Procedure: well Laceration #2 Consent Obtained: emergent situation Indication: laceration Site: upper extremity Size (cm): 4 (Left upper extremity) Description: linear Depth: involves muscle layer Sedation/Analgesia: propofol Type of Sutures: nylon Size of Sutures: 5-0 Number of Sutures: 2 Technique: simple, interrupted Patient Tolerated Procedure: well Laceration #3 Consent Obtained: emergent situation Indication: laceration Site: upper extremity Size (cm): 4 (Right upper extremity) Description: linear Depth: involves muscle layer Sedation/Analgesia: propofol Type of Sutures: nylon Size of Sutures: 5-0 Number of Sutures: 2 Technique: simple, interrupted Patient Tolerated Procedure: well Laceration #4 Consent Obtained: emergent situation Indication: laceration Site: upper extremity Size (cm): 4 (Right upper extremity) Description: linear Depth: involves muscle layer Sedation/Analgesia: propofol Type of Sutures: nylon Number of Sutures: 2 Technique: simple, interrupted Patient Tolerated Procedure: well - Orthopedic Fracture Reduction Fracture #1 Consent Obtained: written consent Side: left Fracture Reduction Location: radius, ulna Analgesia: procedural sedation Technique: direct manipulation, traction/counter-traction Post Reduction X-rays Demonstrate: acceptable reduction Post-Reduction Neuro Exam: intact Post-Reduction Vascular Exam: intact Splint Applied: Yes Patient Tolerated Procedure: well, no complications - Orthopedic Splinting/Casting Injury #1 Side: left Upper Extremity Injury Location: short arm Upper Extremity Immobilizer: sugar tong splint, Willy wrap, synthetic pre-padded splint - Procedural Sedation *Procedural Sedation Start Time: 11:05 *Procedural Sedation Stop Time: 11:45 *Risks,benefits, and alternative therapies discussed?: Yes *Patient indicates understanding of risk/benefit discussion?: Yes *Indications: fracture/dislocation reduction *Previous Adverse Reaction to Anesthesia/Sedation?: No * Testing Complete?: No Reason Test Not Complete:: Age > 60 *ASA Class: I *Mallampati Airway Score: 1 *Time of Last PO Intake: 07:30 Preparation: form setter metal road forms applied, pulse oximeter, capnometry used, supplemental O2 applied, reversal agents at bedside, suction/airway equipment at bedside IV Propofol Dose (mgs): 400 Complications: none Patient Tolerated Procedure: well, no complications Medical Decision Making - Medical Decision Making Was pt. sent in by a medical professional or institution (, PA, MAGISTRATE, urgent care, hospital, or longterm...) When possible be specific @ -No Did you speak to anyone other than the patient for history (EMS, parent, family, police, friend...)? What history was obtained from this source @ -I spoke with EMS for history Did you review nursing and triage notes (agree or disagree)? Why? @ -I reviewed and agree with nursing and triage notes Were old charts reviewed (outside hosp., previous admission, EMS record, old EKG, old radiological studies, urgent care reports/EKG's, longterm records)? Report findings @ -No old charts were reviewed Differential Diagnosis (chest pain, altered mental status, abdominal pain women, abdominal pain men, vaginal bleeding, weakness, fever, dyspnea, syncope, headach e, dizziness, GI bleed, back pain, seizure, CVA, palpatations, mental health, musculoskeletal)? @ -Differential Musculoskeletal Muscular strain, contusion, ligament sprain, fracture, arthritis, septic arthritis, bursitis, cellulitis, muscle spasm, nerve compression, DVT, arterial occlusion, herpes zoster, electrolyte abnormality, tumor.... This is not meant to be in all inclusive list EKG interpreted by me (3pts min.). @ -Yes and demonstrates sinus rhythm with a rate of 87. ME interval 168. QRS 78. QTc of 412. No acute ST segment elevations or depressions X-rays interpreted by me (1pt min.). @ -Yes and demonstrates distal ulna and radius fracture CT interpreted by me (1pt min.). @ -None done U/S interpreted by me (1pt. min.). @ -None done What testing was considered but not performed or refused? (CT, X-rays, U/S, labs)? Why? @ -None What meds were considered but not given or refused? Why? @ -None Did you discuss the management of the patient with other professionals ([place] disla i.e. , PA, MAGISTRATE, lab, RT, psych nurse, social media marketer, data reviewer, teacher, credit or loans officer, nurse outreach case manager)? Give summary @ -Spoke with Elizabet Mackey from orthopedics who does decide to take the patient to the OR Was smoking cessation discussed for >3mins.? @ -No Was critical care preformed (if so, how long)? @ -40 minutes for management of critical open fracture Were there social determinants of health that impacted care today? How? (Homelessness, low income, unemployed, alcoholism, drug addiction, transportation, low edu. Level, literacy, decrease access to med. care, assisted, rehab)? @ -No Was there de-escalation of care discussed even if they declined (Discuss DNR or withdrawal of care, Hospice)? DNR status @ -No What co-morbidities impacted this encounter? (DM, HTN, Smoking, COPD, CAD, Cancer, CVA, ARF, Chemo, Hep., AIDS, mental health diagnosis, sleep apnea, morbid obesity)? @ -None Was patient admitted / discharged? Hospital course, mention meds given and route, prescriptions, significant lab abnormalities, going to OR and other pertinent info. @ -Upon arrival patient seen and evaluated in room 1. Thorough history and physical exam was performed. I did give the patient a dose of Dilaudid. She has already received antibiotics from EMS. X-rays were performed and patient does have identifiable open fracture. She has continuous oozing of blood from her large lacerations. The patient was procedurally sedated with propofol and I did reduce the patient's left ulnar fracture. 4 of the patient's lacerations were also closed due to copious bleeding. Patient is then placed in a left sugar-tong splint. I called orthopedics who agreed to take the patient to the OR for washout. Elizabet Mackey is present to the emergency department and evaluates the patient and the patient is taken within the hour to the OR Undiagnosed new problem with uncertain prognosis? @ -No Drug Therapy requiring intensive monitoring for toxicity (Heparin, Nitro, Insulin, Cardizem)? @ -No Were any procedures done? @ -No Diagnosis/symptom? @ -Acute dog bite bilateral forearms, acute fall, left radius and ulnar fracture Acute, or Chronic, or Acute on Chronic? @ -Acute Uncomplicated (without systemic symptoms) or Complicated (systemic symptoms)? @ -Complicated Side effects of treatment? @ -No Exacerbation, Progression, or Severe Exacerbation? @ -No Poses a threat to life or bodily function? How? (Chest pain, [place], [place], pneumonia, PE, COPD, DKA, ARF, appy, cholecystitis, CVA, Diverticulitis, Homicidal, Suicidal, threat to staff... and all critical care pts) @ -Yes this patient does have significant injuries from dog bite - Lab Data Result diagrams: 01/15/25 05:28 01/15/25 05:28 Disposition Clinical Impression: Open fracture radius shaft, Dog bite, Forearm laceration Disposition: ADMITTED IP TO THIS [facility] Condition: Stable Is patient prescribed a controlled substance at d/c from ED?: No Time of Disposition: 12:34 Decision to Admit Reason: Admit from EC Decision Date: 01/09/25 Decision Time: 12:34
--- NOTE | 2025-01-09 12:42 | XR ---
EXAMINATION TYPE: XR forearm LT DATE OF EXAM: 01/09/2025 11:52 AM COMPARISON: Earlier exam CLINICAL INDICATION: Female, 64 years old with history of post reduction, pain TECHNIQUE: 2 view(s) obtained. FINDINGS: Images are obtained through fiberglass cast. There is improved alignment and positioning of the radial fracture. Slight displacement remains prese nt. Angulation is improved. There is improved alignment of the distal ulnar fracture. Fracture has some comminution on the curren t exam. The suspected puncture fracture of the proximal radius is again evident. IMPRESSION: 1. Improved alignment and positioning of previous radial and ulnar fractures. [facility], Workstation: [facility], 01/09/2025 12:40 PM
[2025-01-09] MEDS: HYDROmorphone 1 MG/ML 1 ML SYRINGE IVP PRN (12:53)
[2025-01-09] MEDS: SODIUM CHLORIDE 0.9% 1,000 ML IV SCH (12:56)
--- NOTE | 2025-01-09 13:09 | P.HPOR ---
History of Present Illness H&P Date: 01/09/25 Chief Complaint: Bilateral upper extremity injury secondary to dog bites. 64-year-old female who presents to the emergency department with multiple dog bites. She states that she was sitting in her chair earlier this morning when her dog attacked her. States dog was previously never aggressive. She fell out of a chair and onto her left arm where the dog continued to involve both of her forearms. Patient had obvious open fracture to the left forearm. Patient is right-hand dominant. She has multiple deep lacerations to the bilateral forearms. She does not take any blood thinners. She denies hitting her head or losing consciousness throughout the event. Patient received 2 g of Rocephin by EMS en route to the hospital as well as 100 mcg of fentanyl and 4 mg of Zofran. She is up-to-date on her tetanus. States that the dog is up-to-date on their vaccinations. Last oral intake was around 730 this morning when patient ate breakfast. Past Medical History Past Medical History: Chest Pain / Angina, Fibromyalgia, Hypertension Additional Past Medical History / Comment(s): chronic back pain, left sided chest pain recently, with shortness of breath History of Any Multi-Drug Resistant Organisms: None Reported Past Surgical History: Section, Hysterectomy, Orthopedic Surgery Additional Past Surgical History / Comment(s): hand surgery on rt rt ankle surgery, plate and screws in neck. Past Anesthesia/Blood Transfusion Reactions: No Reported Reaction Past Psychological History: No Psychological Hx Reported Smoking Status: Former smoker Past Alcohol Use History: Rare Past Drug Use History: None Reported - Past Family History Father Family Medical History: No Reported History Medications and Allergies Home Medications Medication Instructions Recorded Confirmed Type oxyCODONE HCL [oxyCODONE HCL (IR)] 30 mg PO Q6H PRN 10/09/18 10/08/24 History Aspirin [Adult Low Dose Aspirin EC] 81 mg PO DAILY 10/04/24 10/08/24 History Elderberry/Vitc/Zinc 1 tab PO DAILY 10/04/24 10/08/24 History Losartan/Hydrochlorothiazide 1 tab PO DAILY 10/04/24 10/08/24 History [Losartan-Hctz 100-12.5 mg Tab] Metoprolol Tartrate [Lopressor] 50 mg PO DAILY 10/04/24 10/08/24 History Allergies Allergy/AdvReac Type Severity Reaction Status Date / Time hydrocodone [From Vicodin] Allergy Swelling Verified 01/09/25 10:03 morphine Allergy Rash/Hives Verified 01/09/25 10:03 nitrofurantoin Allergy Swelling Verified 01/09/25 10:03 [From Macrobid] oxycodone [From Percocet] Allergy Swelling Verified 01/09/25 10:03 pregabalin [From Lyrica] Allergy Swelling Verified 01/09/25 10:03 Physical Examination This is a 64-year-old female in no acute distress. She is alert and oriented x 3. Exam of the head and neck reveal no obvious deformity. She has full cervical spine motion without difficulty or pain. Exam of bilateral upper extremities reveals that the left arm is in a sugar-tong splint and sling. She has full finger motion including extension and flexion of the fingers on the left hand. Capillary refill is brisk. Fingers are pink and warm. The right upper extremity reveals gauze and Kerlix in place about the forearm. She has full finger motion without difficulty or pain. Capillary refill is brisk. Neurovascular status to the upper extremities is intact. The remainder of her musculoskeletal exam is unremarkable. Results X-rays of the left forearm reveal a displaced radial shaft fracture which was reduced by the ER. There is a distal ulna fracture as well. There is also a proximal radius fracture, nondisplaced. Assessment and Plan (1) Dog bite Current Visit: Yes Status: Acute Code(s): W54.0XXA - BITTEN BY DOG, INITIAL ENCOUNTER SNOMED Code(s): 023226620 (2) Forearm laceration Current Visit: Yes Status: Acute Code(s): S51.819A - LACERATION WITHOUT FOREIGN BODY OF UNSP FOREARM, INIT ENCNTR SNOMED Code(s): 795366605 (3) Open fracture radius shaft Current Visit: Yes Status: Acute Code(s): S52.309B - UNSP FX SHAFT OF UNSP RADIUS, INIT FOR OPN FX TYPE I/2 SNOMED Code(s): 47569942 Plan: The clinical and x-ray findings are discussed with the patient. It is recommended she go to surgery today for irrigation and debridement of her multiple lacerations as well as open reduction internal fixation of the radius fracture. The procedure was discussed in detail including the possible risks and outcomes. She will likely remain inpatient postoperatively for IV antibiotics.
[2025-01-09] MEDS: DEXAMETHASONE SOD PHOSPHATE 4 MG/ML 1 ML VIAL IVP STA (13:28)
[2025-01-09] MEDS: ONDANSETRON 4 MG/2 ML VIAL IVP PRN (13:32)
[2025-01-09 13:33] LABS: Basophils # (A) 0.04 10*3/uL (0.00-0.10); Basophils % (A) 0.4 %; Eosinophils # (A) 0.01 10*3/uL (0.04-0.35); Eosinophils % (A) 0.1 %; HCT 34.9 % (37.2-46.3); HGB 11.9 g/dL (12.0-15.0); Lymphocytes # (A) 1.18 10*3/uL (0.90-5.00); Lymphocytes % (A) 12.6 %; MCHC 34.1 g/dL (32.0-37.0); MCV 87.9 fL (80.0-97.0); Mean Platelet Volume 9.1 fL (9.5-12.2); Monocytes # (A) 0.68 10*3/uL (0.20-1.00); Monocytes % (A) 7.3 %; Neutrophils # (A) 7.42 10*3/uL (1.80-7.70); Neutrophils % (A) 79.3 %; Platelet Count 246 10*3/uL (140-440); RBC 3.97 10*6/uL (4.10-5.20); RDW 12.7 % (11.5-14.5); WBC 9.36 10*3/uL (4.50-10.00)
[2025-01-09] MEDS: IV FLUID CONTINUATION 1,000 ML IV ONE ×2 (13:36→15:45)
[2025-01-09 13:40] LABS: INR 1.1 (<1.2); Prothrombin Time 12.1 sec (10.0-12.5)
[2025-01-09 13:41] LABS: ALT 37 U/L (4-34); AST 56 U/L (14-36); African American GFR (CKD) >90 (>60 ml/min/1.73 sqM); Albumin 2.9 g/dL (3.5-5.0); Alkaline Phosphatase 112 U/L (38-126); Anion Gap 10 mmol/L; Blood Urea Nitrogen 13 mg/dL (7-17); Calcium 9.1 mg/dL (8.4-10.2); Carbon Dioxide 22 mmol/L (22-30); Chloride 107 mmol/L (98-107); Glucose 124 mg/dL (74-99); Non-African American GFR(CKD) >90 (>60 ml/min/1.73 sqM); Potassium 4.1 mmol/L (3.5-5.1); Sodium 139 mmol/L (137-145); Total Bilirubin 1.8 mg/dL (0.2-1.3); Total Protein 4.9 g/dL (6.3-8.2)
[2025-01-09] MEDS ORDERED: PROPOFOL 10 MG/ML 20 ML VIAL IV ONE (13:43)
[2025-01-09] MEDS ORDERED: ePHEDrine 50 MG/ML 1 ML VIAL ONE (13:43)
[2025-01-09] MEDS ORDERED: MIDAZOLAM 2 MG/2 ML VIAL ONE (13:43)
[2025-01-09] MEDS ORDERED: fentaNYL (PF) 50 MCG/ML 2 ML AMP ONE (13:43)
[2025-01-09] MEDS ORDERED: SUCCINYLCHOLINE CHLORIDE 200 MG/10 ML VIAL IV ONE (13:43)
[2025-01-09] MEDS ORDERED: PHENYLEPHRINE 10 MG/ML VIAL ONE (13:43)
[2025-01-09] MEDS ORDERED: LIDOCAINE 1% INJ 10MG/ML (20 ML MDV) ONE (13:43)
[2025-01-09] MEDS: ceFAZolin 2 GM in DEXTROSE 5% IN WATER 50 ML IVPB SCH (13:51)
[2025-01-09] MEDS: SODIUM CHLORIDE 0.9% 50 ML with ceFAZolin 2,000 MG IV ONE (13:51)
[2025-01-09] MEDS: GENTAMICIN 300 MG in SODIUM CHLORIDE 0.9% 100 ML IVPB STA (13:57)
[2025-01-09] MEDS: SODIUM CHLORIDE 0.9% IV ONE (14:05)
[2025-01-09] MEDS: GENTAMICIN IV ONE (14:05)
[2025-01-09] MEDS ORDERED: diphenhydrAMINE 25 MG CAP PO PRN (15:49)
[2025-01-09] MEDS ORDERED: SENNOSIDES-DOCUSATE SODIUM 1 EACH TAB PO PRN (15:49)
[2025-01-09] MEDS: HYDROmorphone 0.5 MG/0.5 ML SYRINGE IVP PRN (16:23)
[2025-01-09] MEDS: GENTAMICIN PER PHARMACY MISCELLANE SCH (17:22)
[2025-01-09] MEDS: METOPROLOL TARTRATE 5 MG/5 ML VIAL IVP STA (17:35)
[2025-01-09] MEDS: METOPROLOL TARTRATE 50 MG TAB PO SCH (22:57)
[2025-01-09] MEDS: AMPICILLIN-SULBACTAM 3 GM in SODIUM CHLORIDE 0.9% 100 ML IVPB SCH (22:57)
--- NOTE | 2025-01-10 03:58 | CONS ---
CONSULTATION HISTORY OF PRESENT ILLNESS: A 64-year-old white female, status post debridement of her left thumb for dog bite injury. PHYSICAL EXAMINATION: CARDIOVASCULAR: S1, S2. LUNGS: Transmitted upper sounds. GI: Soft. HEMATOLOGY: Negative Homans. PSYCH: Fair mood and affect. ASSESSMENT: Dog bite injury, history of chronic obstructive pulmonary disease. Prognosis guarded. Home medications have been reordered. Continue antibiotics and wound treatment. MMODL / IJN: [id number] /
[2025-01-10] MEDS: [UNRECOGNIZED DRUG - REMARK] MISCELLANE ONE (05:26)
[2025-01-10] MEDS: ASPIRIN 81 MG PO SCH (08:14)
[2025-01-10] MEDS: ESCITALOPRAM 10 MG TAB PO SCH (08:14)
[2025-01-10] MEDS: LOSARTAN 50 MG TAB PO SCH (08:14)
[2025-01-10] MEDS: FORMOTEROL FUMARATE 20 MCG/2 ML NEBU INHALATION SCH (08:43)
[2025-01-10] MEDS: TIOTROPIUM 2.5 MCG INHALER INHALATION SCH (08:44)
--- NOTE | 2025-01-10 09:41 | P.PN ---
Subjective Progress Note Date: 01/10/25 Principal diagnosis: Dog bite bilateral upper extremities. Status post I&D bilateral forearms and ORIF left radius. 64-year-old female who presents to the emergency department with multiple dog bites. She states that she was sitting in her chair earlier this morning when her dog attacked her. States dog was previously never aggressive. She fell out of a chair and onto her left arm where the dog continued to involve both of her forearms. Patient had obvious open fracture to the left forearm. Patient is right-hand dominant. She has multiple deep lacerations to the bilateral forearms. She does not take any blood thinners. She denies hitting her head or losing consciousness throughout the event. Patient received 2 g of Rocephin by EMS en route to the hospital as well as 100 mcg of fentanyl and 4 mg of Zofran. She is up-to-date on her tetanus. States that the dog is up-to-date on their vaccinations. Last oral intake was around 730 this morning when patient ate breakfast. 01/10/2025: This is a 64-year-old female who is postop day #1 status post I&D bilateral forearm multiple lacerations secondary to dog bite and ORIF left radius. The patient is resting fairly comfortably in bed. She has no new complaints or concerns today. She does state that she is having some burning in her left forearm. Vital signs are stable. Objective - Vital Signs Vital signs: Vital Signs Temp 98.2 F 01/10/25 07:10 Pulse 82 01/10/25 08:58 Resp 16 01/10/25 07:10 BP 108/67 01/10/25 07:10 Pulse Ox 99 01/10/25 08:50 FiO2 Intake & Output 01/09/25 01/10/25 01/10/25 18:59 06:59 18:59 Intake Total 1957.5 Output Total 550 Balance 1407.5 Weight 80.739 kg Intake: IV 7.5 Output: Urine 500 Estimated Blood Loss 50 Other: Voiding Method Bedside Commode # Voids 1 - Exam This is a pleasant 64-year-old female in no acute distress. She is alert and oriented x 3. Exam of the left upper extremity reveals a splint and sling in place. She has full finger motion without difficulty or pain. Minimal swelling to the fingers noted. Exam of the right upper extremity reveals that her dressing is clean, dry and intact. She has full wrist and finger motion without difficulty or pain. Neurovascular status to the upper extremity is intact. - Labs CBC & Chem 7: 01/09/25 13:02 01/09/25 13:02 Labs: Abnormal Lab Results - Last 24 Hours (Table) 01/09/25 01/09/25 Range/Units 13:02 13:02 RBC 3.97 L (4.10-5.20) 10*6/uL Hgb 11.9 L (12.0-15.0) g/dL Hct 34.9 L (37.2-46.3) % MPV 9.1 L (9.5-12.2) fL Eosinophils # 0.01 L (0.04-0.35) 10*3/uL Creatinine 0.44 L (0.52-1.04) mg/dL Glucose 124 H (74-99) mg/dL Total Bilirubin 1.8 H (0.2-1.3) mg/dL AST 56 H (14-36) U/L ALT 37 H (4-34) U/L Total Protein 4.9 L (6.3-8.2) g/dL Albumin 2.9 L (3.5-5.0) g/dL Assessment and Plan (1) Dog bite Current Visit: Yes Status: Acute Code(s): W54.0XXA - BITTEN BY DOG, INITIAL ENCOUNTER SNOMED Code(s): 670698901 (2) Forearm laceration Current Visit: Yes Status: Acute Code(s): S51.819A - LACERATION WITHOUT FOREIGN BODY OF UNSP FOREARM, INIT ENCNTR SNOMED Code(s): 274952086 (3) Open fracture radius shaft Current Visit: Yes Status: Acute Code(s): S52.309B - UNSP FX SHAFT OF UNSP RADIUS, INIT FOR OPN FX TYPE I/2 SNOMED Code(s): 15563018 Plan: The clinical and x-ray findings are discussed with the patient. Continue current medical and orthopedic care. Planning OR tomorrow for repeat I&D bilateral forearms and possible ORIF of the left distal ulna.
[2025-01-10] MEDS: HYDROmorphone 2 MG/ML 1 ML SYRINGE IVP PRN (10:26)
[2025-01-10 11:51] LABS: Glucose,Whole Blood 136 mg/dL (70-110)
[2025-01-10] MEDS: GENTAMICIN 300 MG in SODIUM CHLORIDE 0.9% 100 ML IVPB SCH (12:54)
[2025-01-10] MEDS: AMPICILLIN-SULBACTAM 3 GM in SODIUM CHLORIDE 0.9% 100 ML IVPB SCH (12:54)
[2025-01-10] MEDS: SODIUM CHLORIDE 0.9% 500 ML 500 ML IV ONE (17:08)
[2025-01-10] MEDS: NALOXONE 0.4 MG/ML 1 ML VIAL IV PRN (21:31)
[2025-01-10 21:41] LABS: Glucose,Whole Blood 103 mg/dL (70-110)
[2025-01-10] MEDS ORDERED: VANCOMYCIN IV PER PHARMACY 1 EACH MISC MISCELLANE PRN (21:45)
--- NOTE | 2025-01-10 21:47 | P.CONS ---
History of Present Illness - Reason for Consult Consult date: 01/10/25 Antibiotic management Requesting physician: Elizabet Mackey - Chief Complaint Bilateral upper extremity injury and pain x 1 day - History of Present Illness Patient is a 64-year-old female with a past medical history significant for angina fibromyalgia hypertension chronic back pain, presenting to the hospital after the patient has been attacked by her dog as she was eating a muffin patient fell out of the chair onto her left arm when the dog continue to attack her upper extremities and did have multiple bites patient did have multiple laceration denies hitting her head or any laceration to the face or other part of the body patient has been brought to the hospital by EMS on presentation to the hospital the patient was afebrile and no fever have been called subsequently patient was tachycardic but not hypotensive mildly hypoxic currently on 2 L nasal cannula oxygen patient did have a white count of 9.36 creatinine 0.44 liver enzymes mildly elevated patient did have a fall at home x- ray did shows distal third radial fracture and distal ulnar fracture left forearm soft tissue injury of the more proximal left forearm soft tissue swelling patient was evaluated by orthopedics and the patient is status post I&D bilateral forearms and ORIF of the left radius patient subsequently has been admitted to the hospital empirically treated with Unasyn and gentamicin infectious disease was consulted for further management of antibiotic therapy patient be complaining of pain to especially to the left lower extremity to be throbbing moderate to severe intensity without radiation did have some nausea no vomiting no chest pain shortness of breath no coughing no diarrhea Review of Systems Positive point and negatives has been mentioned in the HPI, complete review of systems was performed and all other systems are negative Past Medical History Past Medical History: Chest Pain / Angina, Fibromyalgia, Hypertension Additional Past Medical History / Comment(s): chronic back pain, left sided chest pain recently, with shortness of breath History of Any Multi-Drug Resistant Organisms: None Reported Past Surgical History: Section, Hysterectomy, Orthopedic Surgery Additional Past Surgical History / Comment(s): hand surgery on rt rt ankle surgery, plate and screws in neck. Past Anesthesia/Blood Transfusion Reactions: No Reported Reaction Past Psychological History: No Psychological Hx Reported Smoking Status: Former smoker Past Alcohol Use History: Rare Past Drug Use History: None Reported - Past Family History Father Family Medical History: No Reported History Medications and Allergies Home Medications Medication Instructions Recorded Confirmed Type oxyCODONE HCL [oxyCODONE HCL (IR)] 30 mg PO QID 10/09/18 01/09/25 History Aspirin [Adult Low Dose Aspirin EC] 81 mg PO DAILY 10/04/24 01/09/25 History Losartan/Hydrochlorothiazide 1 tab PO DAILY 10/04/24 01/09/25 History [Losartan-Hctz 100-12.5 mg Tab] Metoprolol Tartrate [Lopressor] 50 mg PO BID 10/04/24 01/09/25 History Ergocalciferol [Vitamin D2 (1250 1,250 mcg PO MO 01/09/25 01/09/25 History Mcg = 08538 Iu)] Escitalopram [Lexapro] 10 mg PO DAILY 01/09/25 01/09/25 History Meloxicam [Mobic] 15 mg PO DAILY PRN 01/09/25 01/09/25 History Tiotropium Br/Olodaterol HCl 2 puff INHALATION RT-DAILY 01/09/25 01/09/25 History [Stiolto Respimat Inhaler (60)] Allergies Allergy/AdvReac Type Severity Reaction Status Date / Time hydrocodone [From Vicodin] Allergy Swelling Verified 01/09/25 13:24 morphine Allergy Rash/Hives Verified 01/09/25 13:24 nitrofurantoin Allergy Swelling Verified 01/09/25 13:24 [From Macrobid] oxycodone [From Percocet] Allergy Swelling Verified 01/09/25 13:24 pregabalin [From Lyrica] Allergy Swelling Verified 01/09/25 13:24 Physical Exam Vitals: Vital Signs Temp Pulse Pulse Resp BP BP Pulse Ox 01/10/25 08:58 82 01/10/25 08:50 99 01/10/25 08:44 84 01/10/25 07:10 98.2 F 86 16 108/67 96 01/10/25 06:01 104/61 01/10/25 00:30 97.7 F 82 18 90/56 97 01/09/25 19:39 98 103/63 95 01/09/25 19:24 96 114/67 94 L 01/09/25 19:12 121 H 133/61 96 01/09/25 18:54 100 131/67 96 01/09/25 18:39 99 118/73 96 01/09/25 18:24 103 H 114/70 95 01/09/25 18:09 100 99/63 96 01/09/25 17:57 97.7 F 110 H 18 130/69 91 L 01/09/25 17:54 104 H 130/69 96 01/09/25 17:41 101 H 12 116/87 98 01/09/25 17:26 115 H 16 117/65 99 01/09/25 17:11 114 H 16 106/67 97 01/09/25 16:45 117 H 16 152/66 99 01/09/25 16:30 114 H 16 133/52 97 01/09/25 16:15 116 H 16 117/70 99 01/09/25 16:00 120 H 20 156/62 95 01/09/25 15:45 98.1 F 122 H 16 142/60 100 01/09/25 13:18 14 97 01/09/25 13:17 98.6 F 95 14 136/61 86 L 01/09/25 13:07 98 20 104/64 95 01/09/25 12:45 80 24 123/81 96 01/09/25 12:30 85 20 106/65 96 01/09/25 12:15 73 24 111/53 94 L 01/09/25 12:00 94 22 110/50 95 01/09/25 11:45 80 24 117/80 96 01/09/25 11:40 89 22 94 L 01/09/25 11:35 95 22 97 01/09/25 11:30 92 20 137/74 97 01/09/25 11:25 91 20 97 01/09/25 11:20 81 19 96 01/09/25 11:15 84 20 127/93 98 01/09/25 11:10 80 20 144/62 89 L 01/09/25 11:05 78 16 178/107 94 L Intake and Output 01/09/25 01/10/25 01/10/25 22:59 06:59 14:59 Intake Total 800 Output Total 550 Balance 250 Intake: IV 800 Output: Urine 500 Estimated Blood Loss 50 Other: Voiding Method Bedside Commode # Voids 1 Weight 80.739 kg GENERAL DESCRIPTION: Middle-age female lying in bed, no distress. No tachypnea or accessory muscle of respiration use. HEENT: Shows Pallor , no scleral icterus. Oral mucous membrane is dry. No pharyngeal erythema or thrush NECK: Trachea central, no thyromegaly. LUNGS: Unlabored breathing. Clear to auscultation anteriorly. No wheeze or crackle. HEART: S1, S2, regular rate and rhythm. No loud murmur ABDOMEN: Soft, no tenderness , guarding or rigidity, no organomegaly EXTREMITIES: Bilateral upper extremity currently wrapped no obvious drainage. SKIN: No rash, no masses palpable. NEUROLOGICAL: The patient is awake, alert, oriented x3, mood and affect normal. Results CBC & Chem 7: 01/09/25 13:02 01/09/25 13:02 Labs: Abnormal Lab Results - Last 24 Hours (Table) 01/09/25 01/09/25 Range/Units 13:02 13:02 RBC 3.97 L (4.10-5.20) 10*6/uL Hgb 11.9 L (12.0-15.0) g/dL Hct 34.9 L (37.2-46.3) % MPV 9.1 L (9.5-12.2) fL Eosinophils # 0.01 L (0.04-0.35) 10*3/uL Creatinine 0.44 L (0.52-1.04) mg/dL Glucose 124 H (74-99) mg/dL Total Bilirubin 1.8 H (0.2-1.3) mg/dL AST 56 H (14-36) U/L ALT 37 H (4-34) U/L Total Protein 4.9 L (6.3-8.2) g/dL Albumin 2.9 L (3.5-5.0) g/dL Assessment and Plan (1) Dog bite Current Visit: Yes Status: Acute Code(s): W54.0XXA - BITTEN BY DOG, INITIAL ENCOUNTER SNOMED Code(s): 457739210 (2) Forearm laceration Current Visit: Yes Status: Acute Code(s): S51.819A - LACERATION WITHOUT FOREIGN BODY OF UNSP FOREARM, INIT ENCNTR SNOMED Code(s): 839035150 Plan: 1patient presented to hospital with bilateral upper extremity laceration and a left forearm fracture related to dog bite and injury in this patient was status post left ORIF of the radius and ulna and concern for possible secondary cellulitis related to the dog bite we need to cover for the oral lilly of the dog and less likely the gram-positive skin lilly on the patient 2-patient will be treated with Unasyn however there is no need for gentamicin which will be discontinued 3-if spike any fever to obtain blood culture and add vancomycin at that point We will follow on clinical condition and cultures to further adjust medication if needed Thank you for this consultation we will follow the patient along with you Dictation was produced using [employer] dictation software. please excuse any grammatical, word or spelling errors. Time with Patient: Greater than 30
[2025-01-10 22:25] LABS: Basophils # (A) 0.02 10*3/uL (0.00-0.10); Basophils % (A) 0.3 %; Eosinophils # (A) 0.02 10*3/uL (0.04-0.35); Eosinophils % (A) 0.3 %; HCT 27.9 % (37.2-46.3); Lymphocytes # (A) 1.58 10*3/uL (0.90-5.00); Lymphocytes % (A) 22.4 %; MCH 30.1 pg (27.0-32.0); MCHC 30.1 g/dL (32.0-37.0); Mean Platelet Volume 9.2 fL (9.5-12.2); Monocytes # (A) 0.95 10*3/uL (0.20-1.00); Monocytes % (A) 13.5 %; Neutrophils # (A) 4.48 10*3/uL (1.80-7.70); Neutrophils % (A) 63.4 %; Platelet Count 143 10*3/uL (140-440); RBC 2.79 10*6/uL (4.10-5.20); RDW 13.4 % (11.5-14.5); WBC 7.06 10*3/uL (4.50-10.00)
[2025-01-10 22:27] LABS: HGB 8.4 g/dL (12.0-15.0)
[2025-01-10 22:35] LABS: ALT 31 U/L (4-34); AST 46 U/L (14-36); African American GFR (CKD) 25 (>60 ml/min/1.73 sqM); Albumin 2.4 g/dL (3.5-5.0); Albumin/Globulin Ratio 1.2; Alkaline Phosphatase 77 U/L (38-126); Anion Gap 24 mmol/L; Blood Urea Nitrogen 38 mg/dL (7-17); Calcium 8.5 mg/dL (8.4-10.2); Carbon Dioxide 14 mmol/L (22-30); Chloride 106 mmol/L (98-107); Glucose 86 mg/dL (74-99); Magnesium 1.8 mg/dL (1.6-2.3); Non-African American GFR(CKD) 21 (>60 ml/min/1.73 sqM); Potassium 4.5 mmol/L (3.5-5.1); Sodium 144 mmol/L (137-145); Total Bilirubin 2.1 mg/dL (0.2-1.3); Total Protein 4.4 g/dL (6.3-8.2)
[2025-01-10 22:41] LABS: Lactic Acid, Venous 1.1 mmol/L (0.7-2.0)
[2025-01-10] MEDS: IPRATROPIUM-ALBUTEROL 3 ML NEB INHALATION STA (22:59)
[2025-01-10] MEDS ORDERED: IPRATROPIUM-ALBUTEROL 3 ML NEB INHALATION PRN (23:03)
[2025-01-10] MEDS: ACETAMINOPHEN IV (For NPO) 1,000 MG in EMPTY BAG 1 BAG IVPB PRN (23:16)
--- NOTE | 2025-01-10 23:50 | CT ---
EXAM: CT Head Without Intravenous Contrast CLINICAL HISTORY: CT Reason: Altered mental status TECHNIQUE: Axial computed tomography images of the head/brain without intravenous contrast. CTDI is 49.2 mGy and DLP is 1097.4 mGy-cm. This CT exam was performed using one or more of the following dose reduction techniques: automated exposure control, adjustment of the mA and/or kV according to patient size, and/or use of iterative reconstruction technique. COMPARISON: No relevant prior studies available. FINDINGS: Brain: Mild cerebral atrophy. Otherwise unremarkable appearance of the brain. No intracranial hemorrhage or infarct is seen. No significant white matter disease. Ventricles: Unremarkable. No ventriculomegaly. Bones/joints: Unremarkable. No acute fracture. Soft tissues: Unremarkable. Sinuses: Unremarkable as visualized. No acute sinusitis. Mastoid air cells: Unremarkable as visualized. No mastoid effusion. IMPRESSION: Mild cerebral atrophy. Otherwise unremarkable appearance of the brain. No intracranial hemorrhage or infarct is seen.
--- NOTE | 2025-01-10 23:51 | CT ---
EXAM: CT Chest Without Intravenous Contrast CLINICAL HISTORY: CT Reason: elevated d-dimer TECHNIQUE: Axial computed tomography images of the chest without intravenous contrast. CTDI is 12.4 mGy and DLP is 577.6 mGy-cm. This CT exam was performed using one or more of the following dose reduction techniques: automated exposure control, adjustment of the mA and/or kV according to patient size, and/or use of iterative reconstruction technique. COMPARISON: No relevant prior studies available. FINDINGS: Lungs: Streaky densities in both lung bases consistent with atelectasis. No mass. Pleural space: Unremarkable. No pneumothorax. No significant effusion. Heart: Unremarkable. No cardiomegaly. No significant pericardial effusion. No significant coronary artery calcifications. Bones/joints: Unremarkable. No acute fracture. No dislocation. Soft tissues: Unremarkable. Vasculature: Unremarkable. No thoracic aortic aneurysm. Lymph nodes: Unremarkable. No enlarged lymph nodes. Gallbladder and bile ducts: Previous cholecystectomy. IMPRESSION: Streaky densities in both lung bases consistent with atelectasis. No other acute process is seen within the chest.
[2025-01-10 23:53] LABS: Glucose,Whole Blood 99 mg/dL (70-110)
[2025-01-11 00:22] LABS: Glucose,Whole Blood 97 mg/dL (70-110)
[2025-01-11] MEDS ORDERED: NALOXONE 0.4 MG/ML 1 ML VIAL IV PRN (00:25)
[2025-01-11] MEDS: SODIUM CHLORIDE 0.9% 500 ML 500 ML IV ONE ×2 (01:00→01:16)
[2025-01-11] MEDS: methylPREDNISolone SOD SUCCI 125 MG/2 ML VIAL IV STA (01:04)
[2025-01-11] MEDS: VANCOMYCIN 1,500 MG in SODIUM CHLORIDE 0.9% 500 ML 500 ML IVPB ONE (01:16)
[2025-01-11 01:28] LABS: Amorphous Sediment,Urine Few /hpf; Appearance,Urine Turbid (Clear); Bilirubin,Urine Negative (Negative); Blood,Urine Small (Negative); Budding Yeast,Urine Rare /hpf; Calcium Oxalate Crystals,Urine Occasional /hpf; Color,Urine Yellow; Glucose,Urine (UA) Trace (Negative); Ketones,Urine 1+ (Negative); Leukocyte Esterase,Urine Small (Negative); Mucus,Urine Rare /hpf; Nitrite,Urine Negative (Negative); Protein,Urine 2+ (Negative); RBC,Urine 47 /hpf (0-5); Specific Gravity,Urine 1.027 (1.001-1.035); Squamous Epithelial Cell,Urine 4 /hpf (0-4); WBC,Urine 9 /hpf (0-5)
[2025-01-11] MEDS: NOREPINEPHRINE 4 MG in SODIUM CHLORIDE 0.9% 250 ML IV SCH (01:41)
[2025-01-11] MEDS ORDERED: IPRATROPIUM-ALBUTEROL 3 ML NEB INHALATION SCH (02:00)
[2025-01-11] MEDS: DEXTROSE 5% IN WATER 1,000 ML with SODIUM BICARB (1 MEQ/ML) 150 ML IV SCH (02:06)
--- NOTE | 2025-01-11 02:48 | P.CNPUL ---
History of Present Illness Consult date: 01/11/25 Requesting physician: Edgar Gomez Reason for consult: other (ICU management) Chief complaint: Dog bite History of present illness: I am seeing this patient new consultation today, 01/11/25, following a rapid response for hypotension. Patient is a 64-year-old female who was originally brought in by EMS to the emergency department on 01/09/2025. She is currently unable to provide a reliable history. ER documentation states she was eating food when her dog attacked her. She fell out of her chair onto her left arm and the dog continued to maul her bilateral forearms. On ER evaluation she had multiple deep lacerations to bilateral forearms. She also had an obvious left forearm fracture. Reportedly up-to-date with he tetanus immunization. X-ray of the bilateral forearm showing distal third radial fracture and distal ulnar fractures with step-off and dorsal angulation of the distal fracture fragments on the left. Soft tissue injury over the proximal left forearm. Focal puncture fracture of the proximal left radius. Soft tissue swelling and injury of the proximal right forearm. Did undergo incision and drainage of bilateral forearms with open reduction internal fixation of the left radius the same day. She was covered on antibiotics, continues on Unasyn and vancomycin. Most recent labs were done last night including a CBC with a WBC count of 7, hemoglobin with over 3 g drop from 11.9 to 8.4 g/dL, platelets 143. No obvious signs of acute blood loss. CMP: Sodium 144, potassium 4.5, chloride 106, serum bicarb 14, anion gap 24, BUN 38, creatinine has jumped up to 2.37, blood glucose 86, lactic 1.1. LFTs not remarkable, total bilirubin 2.1. Ammonia 19. Urinalysis was noted. Rapid Response called late last night at 2351 for hypotension. Patient is lethargic, clammy, diaphoretic. Blood pressure was hypotensive 69/37 mmHg. She was febrile with a temperature of 101.5 F. She has since received 2.5 L crystalloid fluid resuscitation. I am recommending the patient be transferred to the intensive care unit for vasopressor support. Review of Systems ROS unobtainable: due to mental status Past Medical History Past Medical History: Chest Pain / Angina, Fibromyalgia, Hypertension Additional Past Medical History / Comment(s): chronic back pain, left sided chest pain recently, with shortness of breath History of Any Multi-Drug Resistant Organisms: None Reported Past Surgical History: Section, Hysterectomy, Orthopedic Surgery Additional Past Surgical History / Comment(s): hand surgery on rt rt ankle surgery, plate and screws in neck. Past Anesthesia/Blood Transfusion Reactions: No Reported Reaction Past Psychological History: No Psychological Hx Reported Smoking Status: Former smoker Past Alcohol Use History: Rare Past Drug Use History: None Reported - Past Family History Father Family Medical History: No Reported History Medications and Allergies Home Medications Medication Instructions Recorded Confirmed Type oxyCODONE HCL [oxyCODONE HCL (IR)] 30 mg PO QID 10/09/18 01/09/25 History Aspirin [Adult Low Dose Aspirin EC] 81 mg PO DAILY 10/04/24 01/09/25 History Losartan/Hydrochlorothiazide 1 tab PO DAILY 10/04/24 01/09/25 History [Losartan-Hctz 100-12.5 mg Tab] Metoprolol Tartrate [Lopressor] 50 mg PO BID 10/04/24 01/09/25 History Ergocalciferol [Vitamin D2 (1250 1,250 mcg PO MO 01/09/25 01/09/25 History Mcg = 07135 Iu)] Escitalopram [Lexapro] 10 mg PO DAILY 01/09/25 01/09/25 History Meloxicam [Mobic] 15 mg PO DAILY PRN 01/09/25 01/09/25 History Tiotropium Br/Olodaterol HCl 2 puff INHALATION RT-DAILY 01/09/25 01/09/25 History [Stiolto Respimat Inhaler (60)] Allergies Allergy/AdvReac Type Severity Reaction Status Date / Time hydrocodone [From Vicodin] Allergy Swelling Verified 01/09/25 13:24 morphine Allergy Rash/Hives Verified 01/09/25 13:24 nitrofurantoin Allergy Swelling Verified 01/09/25 13:24 [From Macrobid] oxycodone [From Percocet] Allergy Swelling Verified 01/09/25 13:24 pregabalin [From Lyrica] Allergy Swelling Verified 01/09/25 13:24 Physical Exam Vitals: Vital Signs Temp Pulse Pulse Resp BP Pulse Ox 01/10/25 23:49 90 69/37 95 01/10/25 23:06 82 01/10/25 23:04 101.5 F H 01/10/25 23:00 84 01/10/25 21:37 100.7 F H 91 81/44 01/10/25 21:31 18 01/10/25 19:01 101.0 F H 89 20 111/65 91 L 01/10/25 15:59 98.4 F 84 16 79/50 96 01/10/25 13:35 98.2 F 98 18 87/55 98 01/10/25 08:58 82 01/10/25 08:50 99 01/10/25 08:44 84 01/10/25 07:10 98.2 F 86 16 108/67 96 01/10/25 06:01 104/61 Intake and Output 01/10/25 01/10/25 01/11/25 14:59 22:59 06:59 Other: Voiding Method Bedside Commode # Voids 1 GENERAL EXAM: Lethargic, 64-year-old female, diaphoretic, extremities cool and clammy, left upper extremity immobilized with soft cast and right upper extremity with Willy bandages. HEAD: Normocephalic and atraumatic EYES: Normal reaction of pupils, equal size. No nystagmus. Nonicteric sclera. NOSE: Clear with pink turbinates. THROAT: No erythema or exudates. NECK: No masses, no JVD. CHEST: No chest wall deformity. LUNGS: Equal air entry with no crackles, wheeze, rhonchi or dullness. On 4 L/mi n nasal cannula. No conversational dyspnea or accessory muscle use.. CVS: S1 and S2 normal with no audible murmur, regular rhythm. No extra heart sounds ABDOMEN: Obese abdomen, active bowel sounds, no guarding or rigidity, no hepatosplenomegaly. SPINE: No scoliosis or deformity SKIN: No rashes CENTRAL NERVOUS SYSTEM: Lethargic, able to move all extremities, no focal deficits EXTREMITIES: There is no peripheral edema, clubbing, or cyanosis. Peripheral pulses are intact. Capillary refill less than 2 seconds in all extremities Results - Laboratory Findings CBC and BMP: 01/11/25 05:27 01/11/25 05:27 PT/INR, D-dimer PT 12.1 sec (10.0-12.5) 01/09/25 13:02 INR 1.1 (<1.2) 01/09/25 13:02 D-Dimer 1.27 mg/L FEU (<0.60) H 01/10/25 22:09 Abnormal lab findings: Abnormal Labs 01/09/25 01/09/25 01/10/25 13:02 13:02 11:49 RBC 3.97 L Hgb 11.9 L Hct 34.9 L MCV MCHC MPV 9.1 L Eosinophils # 0.01 L D-Dimer Carbon Dioxide BUN Creatinine 0.44 L Glucose 124 H POC Glucose (mg/dL) 136 H Total Bilirubin 1.8 H AST 56 H ALT 37 H Total Protein 4.9 L Albumin 2.9 L Urine Appearance Urine Protein Urine Glucose (UA) Urine Ketones Urine Blood Ur Leukocyte Esterase Urine RBC Urine WBC Urine WBC Clumps Calcium Oxalate Crystal Amorphous Sediment Urine Mucus Urine Yeast (Budding) 01/10/25 01/10/25 01/10/25 22:09 22:09 22:09 RBC 2.79 L Hgb 8.4 L D Hct 27.9 L MCV 100.0 H D MCHC 30.1 L MPV 9.2 L Eosinophils # 0.02 L D-Dimer 1.27 H Carbon Dioxide 14 L BUN 38 H Creatinine 2.37 H Glucose POC Glucose (mg/dL) Total Bilirubin 2.1 H AST 46 H ALT Total Protein 4.4 L Albumin 2.4 L Urine Appearance Urine Protein Urine Glucose (UA) Urine Ketones Urine Blood Ur Leukocyte Esterase Urine RBC Urine WBC Urine WBC Clumps Calcium Oxalate Crystal Amorphous Sediment Urine Mucus Urine Yeast (Budding) 01/11/25 01:00 RBC Hgb Hct MCV MCHC MPV Eosinophils # D-Dimer Carbon Dioxide BUN Creatinine Glucose POC Glucose (mg/dL) Total Bilirubin AST ALT Total Protein Albumin Urine Appearance Turbid H Urine Protein 2+ H Urine Glucose (UA) Trace H Urine Ketones 1+ H Urine Blood Small H Ur Leukocyte Esterase Small H Urine RBC 47 H Urine WBC 9 H Urine WBC Clumps Rare H Calcium Oxalate Crystal Occasional H Amorphous Sediment Few H Urine Mucus Rare H Urine Yeast (Budding) Rare H - Diagnostic Findings CT scan - chest: image reviewed Assessment and Plan Assessment: Dog bite, resulting in deep lacerations of bilateral forearms, status post incision and drainage on 01/09/2025 Fall, resulting in left forearm radial and ulnar fractures status post ORIF of the left radius on 01/09/2025 Sepsis, septic shock, secondary to above Anion gap metabolic acidosis, secondary to above Acute kidney injury, secondary to hypotension and ATN History of hypertension Anemia, with over 3 g drop from 11.9 to 8.4 g/dL. No notable signs of blood loss History of mild nonobstructive coronary artery disease Plan: Patient's condition is currently critical, and she is to be transferred to the intensive care unit Hypotension persists despite a fluid resuscitation with a total of 2.5 liters of normal saline Start norepinephrine to maintain a MAP of 65 mmHg or greater Insert urinary catheter to monitor intake and output Monitor renal function Add sodium bicarbonate infusion at 100 mL/h Continue antibiotics including vancomycin and Unasyn Blood cultures are pending Infectious diseases consulted There is a tentative plan to go back to the OR for further exploration with possible drain removal and internal fixation of the left ulna later this morning. I have personally seen and examined the patient, performed the documentation and the assessment and plan as written. Number of minutes spent on the visit:20 This is a joint evaluation with the DIRECTOR TELEMETRY and this eval was done in 35 min. Agree on the above Patient also has RLQ pain and will proceed with the CT of the abdomen and Pelvis, no contrast Continue Unasyn / vanco monitor renal function Will have another exploration of the wound today and another surgical evaluation of the UE wounds Continue Bicarb infusion and monitor the renal function Time with Patient: Greater than 30
[2025-01-11] MEDS: SODIUM BICARB 8.4% 50 ML SYR (1 MEQ/ML) IV STA (03:02)
[2025-01-11 03:28] LABS: HCT 25.4 % (37.2-46.3); HGB 8.4 g/dL (12.0-15.0); MCH 29.8 pg (27.0-32.0); MCHC 33.1 g/dL (32.0-37.0); Mean Platelet Volume 9.1 fL (9.5-12.2); Platelet Count 136 10*3/uL (140-440); RBC 2.82 10*6/uL (4.10-5.20); RDW 13.2 % (11.5-14.5); WBC 6.25 10*3/uL (4.50-10.00)
[2025-01-11 03:31] LABS: MCV 90.1 fL (80.0-97.0)
[2025-01-11 05:38] LABS: Basophils # (A) 0.02 10*3/uL (0.00-0.10); Basophils % (A) 0.3 %; HCT 26.2 % (37.2-46.3); HGB 8.8 g/dL (12.0-15.0); Immature Platelet Fraction 0.9 % (1.1-6.1); Lymphocytes # (A) 0.76 10*3/uL (0.90-5.00); Lymphocytes % (A) 11.6 %; MCH 30.2 pg (27.0-32.0); MCHC 33.6 g/dL (32.0-37.0); Mean Platelet Volume 9.4 fL (9.5-12.2); Monocytes # (A) 0.24 10*3/uL (0.20-1.00); Monocytes % (A) 3.7 %; Neutrophils # (A) 5.47 10*3/uL (1.80-7.70); Neutrophils % (A) 83.2 %; Platelet Count 145 10*3/uL (140-440); RBC 2.91 10*6/uL (4.10-5.20); RDW 13.2 % (11.5-14.5); WBC 6.57 10*3/uL (4.50-10.00)
[2025-01-11 06:17] LABS: African American GFR (CKD) 23 (>60 ml/min/1.73 sqM); Anion Gap 12 mmol/L; Blood Urea Nitrogen 44 mg/dL (7-17); Calcium 8.9 mg/dL (8.4-10.2); Carbon Dioxide 19 mmol/L (22-30); Chloride 107 mmol/L (98-107); Glucose 118 mg/dL (74-99); Non-African American GFR(CKD) 20 (>60 ml/min/1.73 sqM); Potassium 4.9 mmol/L (3.5-5.1); Sodium 138 mmol/L (137-145)
[2025-01-11] MEDS: IPRATROPIUM-ALBUTEROL 3 ML NEB INHALATION SCH (08:01)
[2025-01-11] MEDS ORDERED: VANCOMYCIN IV PER PHARMACY 1 EACH MISC MISCELLANE PRN (08:54)
[2025-01-11] MEDS ORDERED: VANCOMYCIN 1,500 MG in SODIUM CHLORIDE 0.9% 500 ML 500 ML IVPB SCH (09:00)
--- NOTE | 2025-01-11 10:29 | CT ---
EXAMINATION TYPE: CT abdomen pelvis wo con DATE OF EXAM: 01/11/2025 10:03 AM COMPARISON: None. CLINICAL INDICATION: Female, 64 years old with history of RLQ pain, RLQ pain, pt unable to raise arms do to bilateral fractures. TECHNIQUE: Axial images were obtained from above the diaphragm to the pubic rami in the axial plane a t 5 mm thick sections. Reconstructed images are reviewed on the computer in the coronal plane. CONTRAST: mL of . Study performed without Oral Contrast DLP: 1024.4 mGycm, Automated exposure control for dose reduction was used. FINDINGS: Limited CT sections are obtained the lung bases. Bibasilar streak atelectasis is present. Small bila teral pleural effusions are present. CT ABDOMEN: Some minimal ascites adjacent to the liver. Liver: Normal Spleen: Normal Pancreas: Normal Adrenal glands: The adrenal glands are normal. Gallbladder: Surgically absent Kidneys: No masses are evident. No hydronephrosis is present. No cysts are present. No renal stone s are identified Aorta: Vascular calcification is within the aorta. Inferior vena cava: Normal. CT PELVIS: Loops of bowel within the abdomen and pelvis are normal. Study is lateral contrast limiting bowel evaluation. Appendix: Normal as visualized. No inflammatory changes or dilated tubular structures are evident. Urinary bladder: Decompressed with Solis catheter Genitourinary structures: Uterus and ovaries are not identified. Adnexa appear normal Osseous structures: No suspicious lytic or sclerotic lesions. IMPRESSION: 1. Bibasilar streak atelectasis with small bilateral pleural effusions. 2. Normal-appearing appendix. 3. There may be some minimal fluid adjacent to the liver. [facility], Workstation: [facility], 01/11/2025 10:26 AM
--- NOTE | 2025-01-11 12:09 | XR ---
EXAMINATION TYPE: XR chest 1V confirm line plcmt DATE OF EXAM: 01/11/2025 11:34 AM COMPARISON: 10/09/2018 CLINICAL INDICATION: Female, 64 years old with history of line placement, TECHNIQUE: XR chest 1V confirm line plcmt view(s) obtained. FINDINGS: The heart size is normal. The pulmonary vasculature is normal. The lungs are clear. PICC line on left is in place with tip in the superior vena cava region. IMPRESSION: 1. No acute pulmonary process. 2. Left-sided PICC line with tip in the superior vena cava region [facility], Workstation: [email or web address], 01/11/2025 12:07 PM
--- NOTE | 2025-01-11 12:43 | P.PN ---
Subjective Progress Note Date: 01/11/25 Principal diagnosis: Septic shock Altered mental status due to sepsis Bilateral upper extremity dog bite and laceration Secondary cellulitis due to dog bite Proximal open radial fracture s/p reduction in emergency department Distal radial fracture nondisplaced Distal ulnar fracture Bilateral basilar atelectasis Cerebral atrophy January 11, 2025, patient seen eval examined due to hypertension and confusion patient transferred to ICU, patient seen evaluated in ICU she is awake but slightly lethargic, patient was initially on Levophed has received 2.5 L of crystalloid blood pressure has improved, orthopedic surgery is following patient is scheduled for surgery of the arm later on today. Review of data revealed that patient was sitting on her chair and was attacked by a dog she fell down from chair both arms were attacked by the dog patient has been found to have open fracture of the left forearm. With multiple laceration of both upper extremity and forearm. X-ray of left forearm revealed distal radial shaft fracture reduced in the emergency department and distal ulnar fracture as well proximal radial fracture nondisplaced noted as well patient is being evaluated f or surgical exploration wound clinic under general anesthesia orthopedics following patient is going for surgery later on today. Labs from today reviewed WBC count 6.57, hemoglobin hematocrit 8.8/26 platelet count 145. BUN/creatinine 44/2.47. Currently patient is on bronchodilators IV Unasyn sodium bicarb has been on antihypertensive agent with Lopressor and losartan Levophed is off Objective - Vital Signs Vital signs: Vital Signs Temp 98.1 F 01/11/25 12:00 Pulse 108 H 01/11/25 12:00 Resp 23 01/11/25 12:00 BP 133/60 01/11/25 12:00 Pulse Ox 97 01/11/25 12:00 FiO2 Intake & Output 01/10/25 01/11/25 01/11/25 18:59 06:59 18:59 Intake Total 2618.610 600 Output Total 470 330 Balance 2148.610 270 Intake: IV 2600 600 Ampicillin-Sulbactam 3 gm 100 In Sodium Chloride 0.9% 100 ml @ 200 mls/hr IVPB Q6HR [facility] Rx#:[id number] Dextrose 5% in Water 1, 500 600 000 ml @ 100 mls/hr IV . [id number] [facility] with Sodium Bicarb (1 Meq/ml) 150 ml Rx#:[id number] Sodium Chloride 0.9% 500 1500 ml 500 ml @ 999 mls/hr IV .Q31M ONE Rx#:[id number] Vancomycin 1,500 mg In 500 Sodium Chloride 0.9% 500 ml 500 ml @ 167 mls/hr IVPB ONCE ONE Rx#: [id number] Intake, IV Titration 18.610 Amount Norepinephrine 4 mg In 18.610 Sodium Chloride 0.9% 250 ml @ 0.03 MCG/KG/MIN 9. 228 mls/hr IV .Q24H [facility] Rx#:[id number] Output: Urine 470 330 Other: Voiding Method Indwelling Catheter Indwelling Catheter # Voids 1 - Exam GENERAL DESCRIPTION: Middle-age female lying in bed, no distress. No tachypnea or accessory muscle of respiration use. HEENT: Shows Pallor , no scleral icterus. Oral mucous membrane is dry. No pharyngeal erythema or thrush NECK: Trachea central, no thyromegaly. LUNGS: Unlabored breathing. Clear to auscultation anteriorly. No wheeze or crackle. HEART: S1, S2, regular rate and rhythm. No loud murmur ABDOMEN: Soft, no tenderness , guarding or rigidity, no organomegaly EXTREMITIES: Bilateral upper extremity currently wrapped no obvious drainage. SKIN: No rash, no masses palpable. NEUROLOGICAL: The patient is awake, alert, oriented x3, mood and affect normal. - Labs CBC & Chem 7: 01/11/25 05:27 01/11/25 05:27 Labs: Abnormal Lab Results - Last 24 Hours (Table) 01/10/25 01/10/25 01/10/25 Range/Units 22:09 22:09 22:09 RBC 2.79 L (4.10-5.20) 10*6/uL Hgb 8.4 L D (12.0-15.0) g/dL Hct 27.9 L (37.2-46.3) % MCV 100.0 H D (80.0-97.0) fL MCHC 30.1 L (32.0-37.0) g/dL Plt Count (140-440) 10*3/uL MPV 9.2 L (9.5-12.2) fL Immature Gran # (0.00-0.04) 10*3/uL Lymphocytes # (0.90-5.00) 10*3/uL Eosinophils # 0.02 L (0.04-0.35) 10*3/uL Immature Plt Fraction (1.1-6.1) % D-Dimer 1.27 H (<0.60) mg/L FEU Carbon Dioxide 14 L (22-30) mmol/L BUN 38 H (7-17) mg/dL Creatinine 2.37 H (0.52-1.04) mg/dL Glucose (74-99) mg/dL Total Bilirubin 2.1 H (0.2-1.3) mg/dL AST 46 H (14-36) U/L Total Protein 4.4 L (6.3-8.2) g/dL Albumin 2.4 L (3.5-5.0) g/dL Urine Appearance (Clear) Urine Protein (Negative) Urine Glucose (UA) (Negative) Urine Ketones (Negative) Urine Blood (Negative) Ur Leukocyte Esterase (Negative) Urine RBC (0-5) /hpf Urine WBC (0-5) /hpf Urine WBC Clumps (None) /hpf Calcium Oxalate Crystal (None) /hpf Amorphous Sediment (None) /hpf Urine Mucus (None) /hpf Urine Yeast (Budding) (None) /hpf 01/11/25 01/11/25 01/11/25 Range/Units 01:00 03:12 05:27 RBC 2.82 L (4.10-5.20) 10*6/uL Hgb 8.4 L (12.0-15.0) g/dL Hct 25.4 L (37.2-46.3) % MCV (80.0-97.0) fL MCHC (32.0-37.0) g/dL Plt Count 136 L (140-440) 10*3/uL MPV 9.1 L (9.5-12.2) fL Immature Gran # (0.00-0.04) 10*3/uL Lymphocytes # (0.90-5.00) 10*3/uL Eosinophils # (0.04-0.35) 10*3/uL Immature Plt Fraction (1.1-6.1) % D-Dimer (<0.60) mg/L FEU Carbon Dioxide 19 L (22-30) mmol/L BUN 44 H (7-17) mg/dL Creatinine 2.47 H (0.52-1.04) mg/dL Glucose 118 H (74-99) mg/dL Total Bilirubin (0.2-1.3) mg/dL AST (14-36) U/L Total Protein (6.3-8.2) g/dL Albumin (3.5-5.0) g/dL Urine Appearance Turbid H (Clear) Urine Protein 2+ H (Negative) Urine Glucose (UA) Trace H (Negative) Urine Ketones 1+ H (Negative) Urine Blood Small H (Negative) Ur Leukocyte Esterase Small H (Negative) Urine RBC 47 H (0-5) /hpf Urine WBC 9 H (0-5) /hpf Urine WBC Clumps Rare H (None) /hpf Calcium Oxalate Crystal Occasional H (None) /hpf Amorphous Sediment Few H (None) /hpf Urine Mucus Rare H (None) /hpf Urine Yeast (Budding) Rare H (None) /hpf 01/11/ Range/Units 05:27 RBC 2.91 L (4.10-5.20) 10*6/uL Hgb 8.8 L (12.0-15.0) g/dL Hct 26.2 L (37.2-46.3) % MCV (80.0-97.0) fL MCHC (32.0-37.0) g/dL Plt Count (140-440) 10*3/uL MPV 9.4 L (9.5-12.2) fL Immature Gran # 0.08 H (0.00-0.04) 10*3/uL Lymphocytes # 0.76 L (0.90-5.00) 10*3/uL Eosinophils # 0.00 L (0.04-0.35) 10*3/uL Immature Plt Fraction 0.9 L (1.1-6.1) % D-Dimer (<0.60) mg/L FEU Carbon Dioxide (22-30) mmol/L BUN (7-17) mg/dL Creatinine (0.52-1.04) mg/dL Glucose (74-99) mg/dL Total Bilirubin (0.2-1.3) mg/dL AST (14-36) U/L Total Protein (6.3-8.2) g/dL Albumin (3.5-5.0) g/dL Urine Appearance (Clear) Urine Protein (Negative) Urine Glucose (UA) (Negative) Urine Ketones (Negative) Urine Blood (Negative) Ur Leukocyte Esterase (Negative) Urine RBC (0-5) /hpf Urine WBC (0-5) /hpf Urine WBC Clumps (None) /hpf Calcium Oxalate Crystal (None) /hpf Amorphous Sediment (None) /hpf Urine Mucus (None) /hpf Urine Yeast (Budding) (None) /hpf Assessment and Plan Assessment: Septic shock Altered mental status due to sepsis Bilateral upper extremity dog bite and laceration Secondary cellulitis due to dog bite Acute on chronic kidney disease Proximal open radial fracture s/p reduction in emergency department Distal radial fracture nondisplaced Distal ulnar fracture Bilateral basilar atelectasis Cerebral atrophy Plan: Continue gentle rehydration Continue broad-spectrum antibiotics Patient 2 OR for wound debridement cleaning Continue DVT and peptic ulcer disease prophylaxis Care plan discussed with patient and significant other present at bedside at [facility] Continue bicarb drip improved CO2 from 14-19 Time with Patient: Greater than 30
--- NOTE | 2025-01-11 12:50 | P.CONS ---
History of Present Illness - Reason for Consult Consult date: 01/11/25 anemia Requesting physician: Edgar Gomez - Chief Complaint dog bite - History of Present Illness Patient is a 64-year-old female who presented to the emergency department with multiple dog bites. She states that she was sitting in her chair when her dog attacked her, causing her to fall out of a chair and onto her left arm. Patient had multiple lacerations to BUE and open fracture to the left forearm. She has since undergone surgical repair of fracture. Upon admit hemoglobin was noted at 11.9. Today hemoglobin noted at 8.8, MCV 90.0. WBC 6.5, platelets 145,000. Bilirubin elevated at 2.1. Upon trending labs patient did have a noted hemoglobin of 6.5 in 2016. Last hemoglobin prior to admission was normal at 13.2 in September 2024. Patient denies rectal bleeding melena. She does not take any blood thinners. Patient is also noted to have FRANSICO, creatinine 2.47, GFR 20. She is currently in ICU for hypotension/sepsis. Status post I&D bilateral forearm multiple lacerations secondary to dog bite and ORIF left radius. Continues IV abx. Review of Systems 10 point ROS is negative except as stated in the HPI Past Medical History Past Medical History: Chest Pain / Angina, Fibromyalgia, Hypertension Additional Past Medical History / Comment(s): chronic back pain, left sided chest pain recently, with shortness of breath History of Any Multi-Drug Resistant Organisms: None Reported Past Surgical History: Section, Hysterectomy, Orthopedic Surgery Additional Past Surgical History / Comment(s): hand surgery on rt rt ankle surgery, plate and screws in neck. Past Anesthesia/Blood Transfusion Reactions: No Reported Reaction Past Psychological History: No Psychological Hx Reported Smoking Status: Former smoker Past Alcohol Use History: Rare Past Drug Use History: None Reported - Past Family History Father Family Medical History: No Reported History Medications and Allergies Home Medications Medication Instructions Recorded Confirmed Type oxyCODONE HCL [oxyCODONE HCL (IR)] 30 mg PO QID 10/09/18 01/09/25 History Aspirin [Adult Low Dose Aspirin EC] 81 mg PO DAILY 10/04/24 01/09/25 History Losartan/Hydrochlorothiazide 1 tab PO DAILY 10/04/24 01/09/25 History [Losartan-Hctz 100-12.5 mg Tab] Metoprolol Tartrate [Lopressor] 50 mg PO BID 10/04/24 01/09/25 History Ergocalciferol [Vitamin D2 (1250 1,250 mcg PO MO 01/09/25 01/09/25 History Mcg = [id number] Iu)] Escitalopram [Lexapro] 10 mg PO DAILY 01/09/25 01/09/25 History Meloxicam [Mobic] 15 mg PO DAILY PRN 01/09/25 01/09/25 History Tiotropium Br/Olodaterol HCl 2 puff INHALATION RT-DAILY 01/09/25 01/09/25 History [Stiolto Respimat Inhaler (60)] Allergies Allergy/AdvReac Type Severity Reaction Status Date / Time hydrocodone [From Vicodin] Allergy Swelling Verified 01/09/25 13:24 morphine Allergy Rash/Hives Verified 01/09/25 13:24 nitrofurantoin Allergy Swelling Verified 01/09/25 13:24 [From Macrobid] oxycodone [From Percocet] Allergy Swelling Verified 01/09/25 13:24 pregabalin [From Lyrica] Allergy Swelling Verified 01/09/25 13:24 Physical Exam Vitals: Vital Signs Temp Pulse Pulse Pulse Resp BP BP 01/11/25 11:01 79 01/11/25 11:00 82 12 146/68 01/11/25 10:45 85 11 L 01/11/25 10:30 101 H 14 170/66 01/11/25 10:24 98.2 F 74 14 170/66 01/11/25 10:19 89 14 128/78 01/11/25 09:15 84 12 155/74 01/11/25 09:00 90 14 143/67 01/11/25 08:45 78 5 L 138/66 01/11/25 08:30 85 18 141/64 01/11/25 08:22 89 01/11/25 08:15 85 17 137/57 01/11/25 08:13 78 01/11/25 08:12 74 01/11/25 08:01 79 01/11/25 08:00 98.4 F 75 14 131/84 01/11/25 07:45 80 16 150/60 01/11/25 07:30 77 14 143/118 01/11/25 07:15 89 20 129/57 01/11/25 07:00 87 16 124/88 01/11/25 06:45 73 8 L 104/52 01/11/25 06:30 76 11 L 98/69 01/11/25 06:15 85 12 121/108 01/11/25 06:00 75 13 133/52 01/11/25 05:45 93 10 L 141/44 01/11/25 05:30 85 110/74 01/11/25 05:15 85 123/57 01/11/25 05:00 75 16 127/73 01/11/25 04:45 81 10 L 115/72 01/11/25 04:30 73 12 114/48 01/11/25 04:15 89 14 120/79 01/11/25 04:00 98.1 F 86 11 L 117/60 01/11/25 03:45 84 11 L 108/45 01/11/25 03:30 81 22 139/54 01/11/25 03:15 79 9 L 118/60 01/11/25 03:00 82 9 L 116/73 01/11/25 02:45 85 12 116/56 01/11/25 02:30 86 18 131/93 01/11/25 02:15 79 8 L 108/57 01/11/25 02:00 81 11 L 78/56 01/11/25 01:50 86 8 L 01/11/25 01:40 86 9 L 98/47 01/11/25 01:30 92 8 L 93/41 01/11/25 01:20 86 11 L 104/47 01/11/25 01:10 87 13 67/54 01/11/25 01:00 92 11 L 73/34 01/11/25 00:50 98 28 H 65/33 01/11/25 00:40 92 12 86/75 01/11/25 00:30 96 38 H 104/85 01/11/25 00:28 89 11 L 104/85 01/10/25 23:49 90 69/37 01/10/25 23:06 82 01/10/25 23:04 101.5 F H 01/10/25 23:00 84 01/10/25 21:37 100.7 F H 91 81/44 01/10/25 21:31 18 01/10/25 19:01 101.0 F H 89 20 111/65 01/10/25 15:59 98.4 F 84 16 79/50 01/10/25 13:35 98.2 F 98 18 87/55 Pulse Ox 01/11/25 11:01 01/11/25 11:00 98 01/11/25 10:45 98 01/11/25 10:30 97 01/11/25 10:24 97 01/11/25 10:19 97 01/11/25 09:15 97 01/11/25 09:00 97 01/11/25 08:45 96 01/11/25 08:30 96 01/11/25 08:22 01/11/25 08:15 98 01/11/25 08:13 01/11/25 08:12 01/11/25 08:01 96 01/11/25 08:00 96 01/11/25 07:45 97 01/11/25 07:30 97 01/11/25 07:15 97 01/11/25 07:00 97 01/11/25 06:45 97 01/11/25 06:30 97 01/11/25 06:15 96 01/11/25 06:00 97 01/11/25 05:45 97 01/11/25 05:30 97 01/11/25 05:15 97 01/11/25 05:00 96 01/11/25 04:45 97 01/11/25 04:30 97 01/11/25 04:15 96 01/11/25 04:00 97 01/11/25 03:45 97 01/11/25 03:30 96 01/11/25 03:15 96 01/11/25 03:00 97 01/11/25 02:45 97 01/11/25 02:30 97 01/11/25 02:15 97 01/11/25 02:00 98 01/11/25 01:50 97 01/11/25 01:40 97 01/11/25 01:30 97 01/11/25 01:20 97 01/11/25 01:10 97 01/11/25 01:00 96 01/11/25 00:50 95 01/11/25 00:40 96 01/11/25 00:30 96 01/11/25 00:28 97 01/10/25 23:49 95 01/10/25 23:06 01/10/25 23:04 01/10/25 23:00 01/10/25 21:37 01/10/25 21:31 01/10/25 19:01 91 L 01/10/25 15:59 96 01/10/25 13:35 98 Intake and Output 01/10/25 01/11/25 01/11/25 22:59 06:59 14:59 Intake Total 2618.610 500 Output Total 470 295 Balance 2148.610 205 Intake: IV 2600 500 Ampicillin-Sulbactam 3 gm 100 In Sodium Chloride 0.9% 100 ml @ 200 mls/hr IVPB Q6HR [facility] Rx#:[id number] Dextrose 5% in Water 1, 500 500 000 ml @ 100 mls/hr IV . [id number] [facility] with Sodium Bicarb (1 Meq/ml) 150 ml Rx#:[id number] Sodium Chloride 0.9% 500 1500 ml 500 ml @ 999 mls/hr IV .Q31M ONE Rx#:[id number] Vancomycin 1,500 mg In 500 Sodium Chloride 0.9% 500 ml 500 ml @ 167 mls/hr IVPB ONCE ONE Rx#: [id number] Intake, IV Titration 18.610 Amount Norepinephrine 4 mg In 18.610 Sodium Chloride 0.9% 250 ml @ 0.03 MCG/KG/MIN 9. 228 mls/hr IV .Q24H [facility] Rx#:[id number] Output: Urine 470 295 Other: Voiding Method Bedside Commode Indwelling Catheter Indwelling Catheter # Voids 1 - Constitutional General appearance: mild distress - EENT Eyes: anicteric sclerae, EOMI ENT: hearing grossly normal - Respiratory breathing mildly labored - Gastrointestinal General gastrointestinal: soft, no tenderness - Integumentary Bilateral forearms wrapped in bandages Integumentary: pale - Musculoskeletal Musculoskeletal: generalized weakness - Psychiatric Psychiatric: A&O x's 3 Results CBC & Chem 7: 01/11/25 05:27 01/11/25 05:27 Labs: Abnormal Lab Results - Last 24 Hours (Table) 01/10/25 01/10/25 01/10/25 Range/Units 11:49 22:09 22:09 RBC 2.79 L (4.10-5.20) 10*6/uL Hgb 8.4 L D (12.0-15.0) g/dL Hct 27.9 L (37.2-46.3) % MCV 100.0 H D (80.0-97.0) fL MCHC 30.1 L (32.0-37.0) g/dL Plt Count (140-440) 10*3/uL MPV 9.2 L (9.5-12.2) fL Immature Gran # (0.00-0.04) 10*3/uL Lymphocytes # (0.90-5.00) 10*3/uL Eosinophils # 0.02 L (0.04-0.35) 10*3/uL Immature Plt Fraction (1.1-6.1) % D-Dimer (<0.60) mg/L FEU Carbon Dioxide 14 L (22-30) mmol/L BUN 38 H (7-17) mg/dL Creatinine 2.37 H (0.52-1.04) mg/dL Glucose (74-99) mg/dL POC Glucose (mg/dL) 136 H (70-110) mg/dL Total Bilirubin 2.1 H (0.2-1.3) mg/dL AST 46 H (14-36) U/L Total Protein 4.4 L (6.3-8.2) g/dL Albumin 2.4 L (3.5-5.0) g/dL Urine Appearance (Clear) Urine Protein (Negative) Urine Glucose (UA) (Negative) Urine Ketones (Negative) Urine Blood (Negative) Ur Leukocyte Esterase (Negative) Urine RBC (0-5) /hpf Urine WBC (0-5) /hpf Urine WBC Clumps (None) /hpf Calcium Oxalate Crystal (None) /hpf Amorphous Sediment (None) /hpf Urine Mucus (None) /hpf Urine Yeast (Budding) (None) /hpf 01/10/25 01/11/25 01/11/25 Range/Units 22:09 01:00 03:12 RBC 2.82 L (4.10-5.20) 10*6/uL Hgb 8.4 L (12.0-15.0) g/dL Hct 25.4 L (37.2-46.3) % MCV (80.0-97.0) fL MCHC (32.0-37.0) g/dL Plt Count 136 L (140-440) 10*3/uL MPV 9.1 L (9.5-12.2) fL Immature Gran # (0.00-0.04) 10*3/uL Lymphocytes # (0.90-5.00) 10*3/uL Eosinophils # (0.04-0.35) 10*3/uL Immature Plt Fraction (1.1-6.1) % D-Dimer 1.27 H (<0.60) mg/L FEU Carbon Dioxide (22-30) mmol/L BUN (7-17) mg/dL Creatinine (0.52-1.04) mg/dL Glucose (74-99) mg/dL POC Glucose (mg/dL) (70-110) mg/dL Total Bilirubin (0.2-1.3) mg/dL AST (14-36) U/L Total Protein (6.3-8.2) g/dL Albumin (3.5-5.0) g/dL Urine Appearance Turbid H (Clear) Urine Protein 2+ H (Negative) Urine Glucose (UA) Trace H (Negative) Urine Ketones 1+ H (Negative) Urine Blood Small H (Negative) Ur Leukocyte Esterase Small H (Negative) Urine RBC 47 H (0-5) /hpf Urine WBC 9 H (0-5) /hpf Urine WBC Clumps Rare H (None) /hpf Calcium Oxalate Crystal Occasional H (None) /hpf Amorphous Sediment Few H (None) /hpf Urine Mucus Rare H (None) /hpf Urine Yeast (Budding) Rare H (None) /hpf 01/11/25 01/11/25 Range/Units 05:27 05:27 RBC 2.91 L (4.10-5.20) 10*6/uL Hgb 8.8 L (12.0-15.0) g/dL Hct 26.2 L (37.2-46.3) % MCV (80.0-97.0) fL MCHC (32.0-37.0) g/dL Plt Count (140-440) 10*3/uL MPV 9.4 L (9.5-12.2) fL Immature Gran # 0.08 H (0.00-0.04) 10*3/uL Lymphocytes # 0.76 L (0.90-5.00) 10*3/uL Eosinophils # 0.00 L (0.04-0.35) 10*3/uL Immature Plt Fraction 0.9 L (1.1-6.1) % D-Dimer (<0.60) mg/L FEU Carbon Dioxide 19 L (22-30) mmol/L BUN 44 H (7-17) mg/dL Creatinine 2.47 H (0.52-1.04) mg/dL Glucose 118 H (74-99) mg/dL POC Glucose (mg/dL) (70-110) mg/dL Total Bilirubin (0.2-1.3) mg/dL AST (14-36) U/L Total Protein (6.3-8.2) g/dL Albumin (3.5-5.0) g/dL Urine Appearance (Clear) Urine Protein (Negative) Urine Glucose (UA) (Negative) Urine Ketones (Negative) Urine Blood (Negative) Ur Leukocyte Esterase (Negative) Urine RBC (0-5) /hpf Urine WBC (0-5) /hpf Urine WBC Clumps (None) /hpf Calcium Oxalate Crystal (None) /hpf Amorphous Sediment (None) /hpf Urine Mucus (None) /hpf Urine Yeast (Budding) (None) /hpf CT scan - abdomen: report reviewed CT scan - chest: report reviewed CT scan - pelvis: report reviewed Assessment and Plan (1) Anemia Current Visit: Yes Status: Acute Priority: Medium Code(s): D64.9 - ANEMIA, UNSPECIFIED SNOMED Code(s): 464288486 (2) Dog bite Current Visit: Yes Status: Acute Code(s): W54.0XXA - BITTEN BY DOG, INITIAL ENCOUNTER SNOMED Code(s): 232202495 (3) Forearm laceration Current Visit: Yes Status: Acute Code(s): S51.819A - LACERATION WITHOUT FOREIGN BODY OF UNSP FOREARM, INIT ENCNTR SNOMED Code(s): 753064088 (4) Open fracture radius shaft Current Visit: Yes Status: Acute Code(s): S52.309B - UNSP FX SHAFT OF UNSP RADIUS, INIT FOR OPN FX TYPE I/2 SNOMED Code(s): 27291818 Plan: Dog bite, lacerations, radial/ulnar fractures Presented to the emergency department with multiple dog bites. She states that she was sitting in her chair when her dog attacked her, causing her to fall out of a chair and onto her left arm. Patient had multiple lacerations to BUE and open fracture to the left forearm. -Status post I&D bilateral forearm multiple lacerations secondary to dog bite and ORIF left radius. -Defer management to surgical team Sepsis, FRANSICO: -Transferred to ICU for hypotension/sepsis -Kidney function normal upon admit. Today creatinine 2.47, GFR 20 -UA suspicious for possible UTI -Continues IV abx -Nephrology following Anemia: Patient denies any known history of anemia or havibng to [id number] blood products or iron. Upon trending labs patient did have a noted hemoglobin of 6.5 in 2016. Last hemoglobin prior to admission was normal at 13.2 in September 2024. Patient denies rectal bleeding and melena. She does not take any blood thinners -Upon admit hemoglobin was noted at 11.9. Today hemoglobin noted at 8.8, MCV 90.0. WBC 6.5, platelets 145,000. Bilirubin elevated at 2.1. -Anemia likely r/t acute blood loss from lacerations and surgery, superimposed by infection/sepsis and kidney injury. Would expect counts to improve as patient recovers -Will obtain nutritional studies, hemolysis labs, and paraproteinemia workup to r/o other etiologies -Continue to monitor CBC, with supportive transfusions as needed
--- NOTE | 2025-01-11 14:14 | P.PCN ---
Date of Procedure: 01/11/25 Preoperative Diagnosis: Sepsis Postoperative Diagnosis: Sepsis Procedure(s) Performed: central line Anesthesia: MAC, local Surgeon: Lora Khan Estimated Blood Loss (ml): 0 Pathology: other Condition: critical Disposition: ICU Operative Findings: Central line insertion Indication: Hemodynamic monitoring/Intravenous access. A time-out was completed verifying correct patient, procedure, site, positioning, and implant(s) or special equipment if applicable. The patient was placed in a dependent position appropriate for triple lumen catheter placement based on the vein to be cannulated. The patient's left subclavian was prepped and draped in sterile fashion. 1% Lidocaine was used to anesthetize the surrounding skin area. A triple lumen 9F Cordis catheter was introduced into the left subclavian vein using Seldinger technique. The ca theter was threaded smoothly over the guide wire and appropriate blood return was obtained. Each lumen of the catheter was evacuated of air and flushed with sterile saline. The catheter was then sutured in place to the skin and a sterile dressing applied. Perfusion to the extremity distal to the point of catheter insertion was checked and found to be adequate.
--- NOTE | 2025-01-11 15:03 | P.PN ---
Subjective Progress Note Date: 01/11/25 Principal diagnosis: Reason for follow-up is sepsis bilateral upper extremity dog bite cellulitis Patient is a 64-year-old female with a past medical history significant for angina fibromyalgia hypertension chronic back pain, presenting to the hospital after the patient has been attacked by her dog,. Multiple laceration bilateral upper extremity and left radius fracture status post ORIF. On today's evaluation that is 01/11/2025, the patient did spike a fever of 101.5 F last night patient also hypotensive requiring transfer to the ICU this morning the patient is afebrile she is currently breathing comfortably on 4 L current oxygen no chest pain shortness of breath or cough or abdominal pain no worsening pain bilateral upper extremity. Patient did have a white count of 6.57, creatinine jumped to 2.47 cultures are currently pending Objective - Vital Signs Vital signs: Vital Signs Temp 98.1 F 01/11/25 12:00 Pulse 108 H 01/11/25 12:00 Resp 23 01/11/25 12:00 BP 133/60 01/11/25 12:00 Pulse Ox 97 01/11/25 12:00 FiO2 Intake & Output 01/10/25 01/11/25 01/11/25 18:59 06:59 18:59 Intake Total 2618.610 600 Output Total 470 330 Balance 2148.610 270 Intake: IV 2600 600 Ampicillin-Sulbactam 3 gm 100 In Sodium Chloride 0.9% 100 ml @ 200 mls/hr IVPB Q6HR SOFIYA Rx#:[id number] Dextrose 5% in Water 1, 500 600 000 ml @ 100 mls/hr IV . [id number] SOFIYA with Sodium Bicarb (1 Meq/ml) 150 ml Rx#:[id number] Sodium Chloride 0.9% 500 1500 ml 500 ml @ 999 mls/hr IV .Q31M ONE Rx#:[id number] Vancomycin 1,500 mg In 500 Sodium Chloride 0.9% 500 ml 500 ml @ 167 mls/hr IVPB ONCE ONE Rx#: [id number] Intake, IV Titration 18.610 Amount Norepinephrine 4 mg In 18.610 Sodium Chloride 0.9% 250 ml @ 0.03 MCG/KG/MIN 9. 228 mls/hr IV .Q24H SOFIYA Rx#:[id number] Output: Urine 470 330 Other: Voiding Method Indwelling Catheter Indwelling Catheter # Voids 1 - Exam GENERAL DESCRIPTION: Middle-age female lying in bed in no distress RESPIRATORY SYSTEM: Unlabored breathing , decreased breath sounds at bases HEART: S1 S2 regular rate and rhythm , ABDOMEN: Soft , no tenderness EXTREMITIES: Bilateral upper extremity currently wrapped - Labs CBC & Chem 7: 01/11/25 05:27 01/11/25 05:27 Labs: Abnormal Lab Results - Last 24 Hours (Table) 01/10/25 01/10/25 01/10/25 Range/Units 22:09 22:09 22:09 RBC 2.79 L (4.10-5.20) 10*6/uL Hgb 8.4 L D (12.0-15.0) g/dL Hct 27.9 L (37.2-46.3) % MCV 100.0 H D (80.0-97.0) fL MCHC 30.1 L (32.0-37.0) g/dL Plt Count (140-440) 10*3/uL MPV 9.2 L (9.5-12.2) fL Immature Gran # (0.00-0.04) 10*3/uL Lymphocytes # (0.90-5.00) 10*3/uL Eosinophils # 0.02 L (0.04-0.35) 10*3/uL Immature Plt Fraction (1.1-6.1) % D-Dimer 1.27 H (<0.60) mg/L FEU Carbon Dioxide 14 L (22-30) mmol/L BUN 38 H (7-17) mg/dL Creatinine 2.37 H (0.52-1.04) mg/dL Glucose (74-99) mg/dL Total Bilirubin 2.1 H (0.2-1.3) mg/dL AST 46 H (14-36) U/L Total Protein 4.4 L (6.3-8.2) g/dL Albumin 2.4 L (3.5-5.0) g/dL Urine Appearance (Clear) Urine Protein (Negative) Urine Glucose (UA) (Negative) Urine Ketones (Negative) Urine Blood (Negative) Ur Leukocyte Esterase (Negative) Urine RBC (0-5) /hpf Urine WBC (0-5) /hpf Urine WBC Clumps (None) /hpf Calcium Oxalate Crystal (None) /hpf Amorphous Sediment (None) /hpf Urine Mucus (None) /hpf Urine Yeast (Budding) (None) /hpf 01/11/25 01/11/25 01/11/25 Range/Units 01:00 03:12 05:27 RBC 2.82 L (4.10-5.20) 10*6/uL Hgb 8.4 L (12.0-15.0) g/dL Hct 25.4 L (37.2-46.3) % MCV (80.0-97.0) fL MCHC (32.0-37.0) g/dL Plt Count 136 L (140-440) 10*3/uL MPV 9.1 L (9.5-12.2) fL Immature Gran # (0.00-0.04) 10*3/uL Lymphocytes # (0.90-5.00) 10*3/uL Eosinophils # (0.04-0.35) 10*3/uL Immature Plt Fraction (1.1-6.1) % D-Dimer (<0.60) mg/L FEU Carbon Dioxide 19 L (22-30) mmol/L BUN 44 H (7-17) mg/dL Creatinine 2.47 H (0.52-1.04) mg/dL Glucose 118 H (74-99) mg/dL Total Bilirubin (0.2-1.3) mg/dL AST (14-36) U/L Total Protein (6.3-8.2) g/dL Albumin (3.5-5.0) g/dL Urine Appearance Turbid H (Clear) Urine Protein 2+ H (Negative) Urine Glucose (UA) Trace H (Negative) Urine Ketones 1+ H (Negative) Urine Blood Small H (Negative) Ur Leukocyte Esterase Small H (Negative) Urine RBC 47 H (0-5) /hpf Urine WBC 9 H (0-5) /hpf Urine WBC Clumps Rare H (None) /hpf Calcium Oxalate Crystal Occasional H (None) /hpf Amorphous Sediment Few H (None) /hpf Urine Mucus Rare H (None) /hpf Urine Yeast (Budding) Rare H (None) /hpf 01/11/25 Range/Units 05:27 RBC 2.91 L (4.10-5.20) 10*6/uL Hgb 8.8 L (12.0-15.0) g/dL Hct 26.2 L (37.2-46.3) % MCV (80.0-97.0) fL MCHC (32.0-37.0) g/dL Plt Count (140-440) 10*3/uL MPV 9.4 L (9.5-12.2) fL Immature Gran # 0.08 H (0.00-0.04) 10*3/uL Lymphocytes # 0.76 L (0.90-5.00) 10*3/uL Eosinophils # 0.00 L (0.04-0.35) 10*3/uL Immature Plt Fraction 0.9 L (1.1-6.1) % D-Dimer (<0.60) mg/L FEU Carbon Dioxide (22-30) mmol/L BUN (7-17) mg/dL Creatinine (0.52-1.04) mg/dL Glucose (74-99) mg/dL Total Bilirubin (0.2-1.3) mg/dL AST (14-36) U/L Total Protein (6.3-8.2) g/dL Albumin (3.5-5.0) g/dL Urine Appearance (Clear) Urine Protein (Negative) Urine Glucose (UA) (Negative) Urine Ketones (Negative) Urine Blood (Negative) Ur Leukocyte Esterase (Negative) Urine RBC (0-5) /hpf Urine WBC (0-5) /hpf Urine WBC Clumps (None) /hpf Calcium Oxalate Crystal (None) /hpf Amorphous Sediment (None) /hpf Urine Mucus (None) /hpf Urine Yeast (Budding) (None) /hpf Assessment and Plan (1) Dog bite Current Visit: Yes Status: Acute Code(s): W54.0XXA - BITTEN BY DOG, INITIAL ENCOUNTER SNOMED Code(s): 943938611 (2) Forearm laceration Current Visit: Yes Status: Acute Code(s): S51.819A - LACERATION WITHOUT FOREIGN BODY OF UNSP FOREARM, INIT ENCNTR SNOMED Code(s): 139271614 (3) Sepsis Current Visit: Yes Status: Acute Code(s): A41.9 - SEPSIS, UNSPECIFIED ORGANISM SNOMED Code(s): 80629504 Plan: 1patient presented to hospital with bilateral upper extremity laceration and a left forearm fracture related to dog bite and injury in this patient was status post left ORIF of the radius and ulna and concern for possible secondary cellulitis related to the dog bite we need to cover for the oral lilly of the dog and less likely the gram-positive skin lilly on the patient 2-patient did have a fever hypertension requiring transfer to the ICU she is currently on Unasyn and vancomycin keeping in mind elevated creatinine we will switch vancomycin to daptomycin to decrease risk of nephrotoxicity and monitor clinical course closely Dictation was produced using [employer] dictation software. please excuse any grammatical, word or spelling errors. Time with Patient: Greater than 30
[2025-01-11 15:27] LABS: Reticulocyte % 2.34 % (0.10-1.80)
[2025-01-11 15:31] LABS: Protein, Total 4.5 g/dL (6.2-8.2)
[2025-01-11 15:32] LABS: Immunoglobulin M 58.5 mg/dL (40.0-280.0)
[2025-01-11 15:53] LABS: % Iron Saturation 6.9 (12.00-45.00)
[2025-01-11] MEDS: AMPICILLIN-SULBACTAM 3 GM in SODIUM CHLORIDE 0.9% 100 ML IVPB SCH (16:41)
[2025-01-11] MEDS ORDERED: GLYCOPYRROLATE 0.2 MG/ML 2 ML VIAL ONE (16:45)
[2025-01-11] MEDS ORDERED: DEXAMETHASONE SOD PHOSPHATE 4 MG/ML 1 ML VIAL ONE (16:45)
[2025-01-11] MEDS ORDERED: PROPOFOL 10 MG/ML 20 ML VIAL IV ONE (16:45)
[2025-01-11] MEDS ORDERED: ROCURONIUM 10 MG/ML (5 ML VIAL) IV ONE (16:45)
[2025-01-11] MEDS ORDERED: LIDOCAINE 1% INJ 10MG/ML (20 ML MDV) ONE (16:45)
[2025-01-11] MEDS ORDERED: fentaNYL (PF) 50 MCG/ML 2 ML AMP ONE (16:45)
[2025-01-11] MEDS ORDERED: SUCCINYLCHOLINE CHLORIDE 200 MG/10 ML VIAL IV ONE (16:45)
[2025-01-11] MEDS ORDERED: NEOSTIGMINE 1 MG/ML 10 ML VIAL ONE (16:45)
[2025-01-11] MEDS ORDERED: ONDANSETRON 4 MG/2 ML VIAL ONE (16:45)
[2025-01-11] MEDS: LACTATED RINGERS 1,000 ML IV ONE (16:48)
--- NOTE | 2025-01-11 18:22 | P.OP ---
Date of Procedure: 01/11/25 Procedure(s) Performed: PREOPERATIVE DIAGNOSES: 1. Left wrist distal ulnar fracture, acute grade II open s/p dogbite injury 2. Left wrist proximal radius fracture, acute grade II open s/p dogbite injury 3. Left forearm dogbite injury with soft tissue lacerations 4. Right forearm dogbite injury with soft tissue lacerations s/p repair and washout POSTOPERATIVE DIAGNOSES: 1. Left wrist distal ulnar fracture, acute grade II open s/p dogbite injury 2. Left wrist proximal radius fracture, acute grade II open s/p dogbite injury 3. Left forearm dogbite injury with soft tissue lacerations 4. Right forearm dogbite injury with soft tissue lacerations s/p repair and washout PROCEDURES PERFORMED: 1. Left distal ulnar fracture of wrist open reduction and internal fixation using locking plate 2. Left distal ulnar fracture and wound repeat washout/irrigation 3. Left proximal radius fracture, grade 2 open status post dog bite injury, repeat washout irrigation 4. Right forearm dog bite injury lacerations dressing change ANESTHESIA: Gen. FOUNTAIN MANAGER: Elizabet Mackey PA-C (assistance with: Patient positioning, retraction, exposure, fixation, hemostasis, closure, dressing, splint) COMPLICATIONS: None ESTIMATED BLOOD LOSS: 20 mL. DISPOSITION: To post-anesthesia care unit INDICATIONS: Leslee is a 64-year-old female with a history of having been attacked by a pit bull with severe lacerations and open fractures to her left upper extremity and right upper extremity. She has undergone initial irrigation and debridement of her open fracture wounds on Tuesday, and presents today for repeat irrigation and debridement of her left sided open fracture wounds as well as definitive fixation of her distal ulna fracture with a locking plate which was not available on Tuesday. I have discussed the steps of open reduction and internal fixation as well as dressing change for her right forearm under anesthesia, removal of the drains, and repeat irrigation possible debridement of her forearm wounds on the left side.. I have explained the risks and potential complications of this surgery as being inclusive of but not limited to bleeding, infection, scarring, discomfort, blood vessel and/or nerve damage, malunion, nonunion, stiffness, hardware irritation, deformity, rotational abnormality, need for further surgery, and other risks. We have extensively discussed the risk of stiffness of the left wrist and left elbow joint, which is something that commonly occurs with these kinds of injuries. We have discussed the need for extended rehabilitation and occupational therapy to regain what motion she can. The consent form has been signed by her daughter as she has been in the ICU recently and has been having some confusion. PROCEDURE: After appropriate consent was obtained, the patient was taken to the operating room placed in the supine position. Anesthesia was initiated, and after confirmation of adequate anesthesia, the patient was carefully positioned. Care was taken to make sure that all pressure points were adequately padded. Prepping and draping of the left upper extremity was completed in the usual aseptic fashion using ChloraPrep. Timeout was called, confirming patient identity, side, procedure, and administration of antibiotics. The dressing on the right forearm was changed first. The previous dressing was removed and it was noted that the drain was minimally draining actively at this point. It was removed without incident and the area was cleansed with dilute chlorhexidine solution and a sterile dressing was reapplied using ABD pads, nonadherent dressing, Kerlix and Willy wrap. The drain in the proximal aspect of the left forearm was removed without incident as it was noted that there was minimal drainage actively at this point. A deep culture x 2 was taken at the proximal radius fracture. The sutures around this area were removed and the open fracture site of the proximal radius was reirrigated using normal saline. The wound was then closed using interrupted loose 4-0 nylon sutures. The left upper extremity was exsanguinated using gravity and the tourniquet was inflated to 250 mmHg. Incision was created over the ulnar aspect of the wrist in line with the ulnar shaft. Incision was centered over the fracture site. Total length of incision was approximately 6 cm. Incision was carried down through skin into subcu tissues and then to muscular fascia. The raphae between the extensor and flexor structures was developed. Self-retaining retractor was applied. The fracture site was then exposed with subperiosteal dissection, and thorough irrigation was performed once again using normal saline. The fracture had been previously irrigated 2 days ago through the bite wound leading to the fracture site. Bone quality was judged as poor. Subsequently, the fracture was reduced anatomically. A 2.0 mm Synthes locking plate designed for the distal ulna was used on the ulnar side and clamped into position on both sides of the fracture site. A slight bend was placed in the plate to contour adequately to the bone. Screws were filled first distally using 3 locking 2.0 mm cortical screws. Then regular bicortical technique was used on the more proximal screws. Compression technique was not used because of the extreme comminution of the ulnar neck fracture. C-arm imaging was then used to confirm proper plate placement, reduction, and screw lengths. These parameters were judged to be satisfactory. Irrigation was performed using normal saline and hemostasis was obtained using electrocautery after tourniquet deflation. Closure was performed of the subcutaneous tissues 2- 0 Vicryl suture and 3-0 Monocryl suture for the skin. Dermabond adhesive was then applied. A well-padded well molded sugar-tong splint was placed. Neurovascular status remained satisfactory. Patient tolerated the procedure well and taken to recovery room in stable condition.
--- NOTE | 2025-01-11 18:23 | P.OP ---
Date of Procedure: 01/09/25 Procedure(s) Performed: PREOPERATIVE DIAGNOSES: 1. Left forearm radial shaft fracture, open grade II, dog bite; 2. Left proximal radius (radial neck) fracture, open grade II, dog bite; 3; left distal ulna comminuted fracture, open grade II, dog bite; 4. Left forearm multiple puncture lacerations and rip tears of skin, soft tissue and muscle, total length 14 cm; 5. Right forearm multiple lacerations of skin, soft tissue, and muscle, total length 10 cm POSTOPERATIVE DIAGNOSES: 1. Left forearm radial shaft fracture, open grade II, dog bite; 2. Left proximal radius (radial neck) fracture, open grade II, dog bite; 3; left distal ulna comminuted fracture, open grade II, dog bite; 4. Left forearm multiple puncture lacerations and rip tears of skin, soft tissue and muscle, total length 14 cm; 5. Right forearm multiple lacerations of skin, soft tissue, and muscle, total length 10 cm PROCEDURES PERFORMED: 1. Left forearm radial shaft fracture open reduction and internal fixation with washout of open fracture site and wound; 2. Left proximal radius/radial neck closed reduction after washout of open fracture and wound; 3. Left distal ulna closed reduction after washout of open fracture and wound; 4. Left multiple lacerations simple loose closure with drain placement; 5. Left forearm multiple lacerations washout with antiseptic solution (dilute chlorhexidine) debridement of devitalized tissue using scissors and knife, simple closure using interrupted nylon and teri drain placement; 6. Right forearm multiple lacerations washout with antiseptic solution (dilute chlorhexidine) debridement of devitalized tissue using scissors and knife, simple closure using interrupted nylon and teri drain placement ANESTHESIA: Gen. TREAD BOOKER: Elizabet Mackey PA-C (assistance with exposure, washout, hemostasis, retraction, fixation, closure, dressing, splint) COMPLICATIONS: None ESTIMATED BLOOD LOSS: 50 mL. DISPOSITION: To post-anesthesia care unit INDICATIONS: Leslee is a 64 year old lady who sustained multiple injuries to both forerarms from a pit bull dog attack today. She has sustained a left forearm radial shaft fracture, left distal ulna fracture, and proximal radius fracture, which all appear to be open. In addition, she has sustained multiple lacerations into the muscle of her forearm on both sides. Please see history and physical for full examination findings. The radial shaft fracture is approximately 50% displaced and somewhat angulated. The patient presents to the operating room today for radial shaft fracture open reduction and internal fixation, along with surgical treatment of the other injuries as applicable. She has received IV antibiotics and local wound care so far in the ER. I described the steps of the operation and potential risks and complications as being inclusive of, but not limited to: Bleeding, infection, scarring, discomfort, blood vessel and/or nerve damage, malunion, nonunion, stiffness, weakness, hardware irritation, nerve palsy, and other risks. The patient is aware these risks and wishes to proceed with surgery. The consent form has been signed. PROCEDURE: After appropriate consent was obtained, the patient was taken to the operating room placed in the supine position. Anesthesia was initiated, and after confirmation of adequate anesthesia, the patient was carefully positioned. Care was taken to make sure that all pressure points were adequately padded. Prepping and draping were completed in the usual aseptic fashion using ChloraPrep. Timeout was called, confirming patient identity, side, procedure, and administration of antibiotics. The open wounds were thoroughly preliminarily irrigated with dilute chlorhexidine solution followed by rinse with normal saline. All the fracture sites on the left side had corresponding lacerations from the dog bite that communicated, indicating that all three fracture sites were open fractures related to the dog bites. The right forearm did not apparently have any fractures but had multiple lacerations into the skin, soft tissue, and muscle which were addressed with extension of the wounds where necessary followed by thorough lavage and debridement of any obviously devitalized tissue. This needed to be performed on the proximal forearm laceration over the forearm which was into the brachioradialis muscle. Due to the depth of the wound, after thorough lavage, a teri drain was placed and the lacerations were loosely closed with nylon interrupteds. Next, the left forearm lacerations were similarly addressed as above with thorough lavage, further exposure of the wounds as necessary, debridement of devitalized tissue with the use of scissors and knife, and loose closure over a teri drain with interrupted nylon sutures. The fracture sites of the distal ulna and proximal radius were exposed, thoroughly irrigated at the fracture sites, and reduced manually. A mini-C-arm device was used to assess the reduction and found to be satisfactory, although the distal ulna fracture was obviously unstable and severely comminuted. No distal ulnar locking plates were available for this case immediately, so I planned to perform fixation of this fracture electively as the fracture site had now been operatively irrigated. The left forearm radial shaft fracture was next addressed. The limb was elevated carefully and the tourniquet was inflated to 250 mmHg. An incision was created on the volar aspect of the forearm in the central third. Anterior approach down to the radius was performed. Blunt dissection was carried down through subcutaneous tissues down to muscular fascia. The interval between the brachial radialis and the pronator teres proximally was utilized. More distally, the interval between the brachioradialis and flexor carpi radialis was utilized. The brachioradialis and mobile wad were retracted laterally with care to avoid injuring the radial artery. Branches from the radial artery to the brachioradialis and mobile wad were ligated as necessary to enhance mobilization. Superficial radial nerve was identified and protected throughout the case. Once this was performed, and blunt retractors were placed to retract the mobile wad laterally and general retractors were used on the medial aspect of the flexor carpi radialis to retract medially. The forearm was then somewhat pronated and the pronator teres attachment to the mid shaft of the radius was released from its radial insertion radially. The dissection was then carried subperiosteally distally to fully expose the fracture site. There was evidence of open fracture from the dorsal radial side and therefore the fracture was opened carefully and the interior was thoroughly irrigated with normal saline. Overall, several liters of sterile saline was used to irrigate all these wounds. The fracture was reduced with bone-holding clamps. The fracture was not significantly comminuted and had good interlock between the fragments themselves. Radial bow was carefully evaluated and restored. A 3.5 mm DCP plate was then minimally contoured to match the contour of the radius and was applied on the volar aspect of the bone. Compression technique was used. 3 fully threaded bicortical 3.5 mm screws were used on each side of the fracture to secure fixation. Since this fracture was transverse, no interfragmentary screw was able to be applied. The bone had excellent fixation and pronation supination were normal. Interrogation with mini C-arm imaging showed satisfactory position of the hardware and pentecostalism of radial bow. Fracture was completely reduced anatomically. The area was then thoroughly irrigated with normal saline hemostasis was obtained using electrocautery after deflation of the tourniquet. Mini c-arm was used to assess the other fractures and they were found to be adequately reduced. Closure was performed with 2-0 Vicryl suture in the subcutaneous tissues and interrupted nylons for the skin. All wounds were dressed with sterile ABD pads and Kerlix. Well molded and padded long arm posterior splint was applied. Patient tolerated the procedure well and taken to recovery room in stable condition. Sponge and needle counts were correct.
[2025-01-11 19:12] LABS: Glucose,Whole Blood 196 mg/dL (70-110)
[2025-01-11] MEDS ORDERED: VANCOMYCIN 1,500 MG in SODIUM CHLORIDE 0.9% 500 ML 500 ML IVPB ONE (22:00)
[2025-01-12] MEDS: HYDROmorphone 0.5 MG/0.5 ML SYRINGE IVP PRN (02:03)
[2025-01-12 05:30] LABS: Basophils # (A) 0.01 10*3/uL (0.00-0.10); Basophils % (A) 0.1 %; HCT 24.1 % (37.2-46.3); HGB 8.3 g/dL (12.0-15.0); Lymphocytes % (A) 9.4 %; MCH 30.1 pg (27.0-32.0); MCHC 34.4 g/dL (32.0-37.0); MCV 87.3 fL (80.0-97.0); Mean Platelet Volume 9.6 fL (9.5-12.2); Monocytes # (A) 0.61 10*3/uL (0.20-1.00); Monocytes % (A) 8.2 %; Neutrophils # (A) 6.04 10*3/uL (1.80-7.70); Neutrophils % (A) 81.1 %; Platelet Count 146 10*3/uL (140-440); RBC 2.76 10*6/uL (4.10-5.20); RDW 12.6 % (11.5-14.5); WBC 7.45 10*3/uL (4.50-10.00)
[2025-01-12 06:12] LABS: African American GFR (CKD) 49 (>60 ml/min/1.73 sqM); Anion Gap 9 mmol/L; Blood Urea Nitrogen 55 mg/dL (7-17); Carbon Dioxide 25 mmol/L (22-30); Chloride 103 mmol/L (98-107); Glucose 165 mg/dL (74-99); Non-African American GFR(CKD) 42 (>60 ml/min/1.73 sqM); Sodium 137 mmol/L (137-145)
[2025-01-12 06:35] LABS: Potassium 4.3 mmol/L (3.5-5.1)
--- NOTE | 2025-01-12 10:14 | P.PN ---
Subjective Progress Note Date: 01/12/25 Principal diagnosis: Septic shock Altered mental status due to sepsis Bilateral upper extremity dog bite and laceration Secondary cellulitis due to dog bite Proximal open radial fracture s/p reduction in emergency department Distal radial fracture nondisplaced Distal ulnar fracture Bilateral basilar atelectasis Cerebral atrophy January 12, 2025, patient seen eval examined during rounds labs reviewed medications and care plan discussed, respiratory status slightly improved mental status improving as well, patient is s/p left distal INR open reduction internal fixation using locking plates with wound irrigation current dressing change postop day #1 by orthopedic surgery, Gram stain culture obtained results are pending. Patient remains on IV Unasyn and Vanco tolerating well ID service has been following labs from today reviewed BUN/creatinine improved to 55/1.35 hemoglobin remains stable January 11, 2025, patient seen eval examined due to hypertension and confusion patient transferred to ICU, patient seen evaluated in ICU she is awake but slightly lethargic, patient was initially on Levophed has received 2.5 L of crystalloid blood pressure has improved, orthopedic surgery is following patient is scheduled for surgery of the arm later on today. Review of data revealed that patient was sitting on her chair and was attacked by a dog she fell down from chair both arms were attacked by the dog patient has been found to have open fracture of the left forearm. With multiple laceration of both upper extremity and forearm. X-ray of left forearm revealed distal radial shaft fracture reduced in the emergency department and distal ulnar fracture as well proximal radial fracture nondisplaced noted as well patient is being evaluated for surgical exploration wound clinic under general anesthesia orthopedics following patient is going for surgery later on today. Labs from today reviewed WBC count 6.57, hemoglobin hematocrit 8.8/26 platelet count 145. BUN/creatinine 44/2.47. Currently patient is on bronchodilators IV Unasyn sodium bicarb has been on antihypertensive agent with Lopressor and losartan Levophed is off Objective - Vital Signs Vital signs: Vital Signs Temp 97.9 F 01/12/25 08:00 Pulse 98 01/12/25 09:00 Resp 27 H 01/12/25 09:00 BP 122/24 01/12/25 09:00 Pulse Ox 93 L 01/12/25 09:00 FiO2 Intake & Output 01/11/25 01/12/25 01/12/25 18:59 06:59 18:59 Intake Total 1350 1200 300 Output Total 510 740 250 Balance 840 460 50 Weight 91.5 kg Intake: IV 1350 1200 300 Ampicillin-Sulbactam 3 gm 100 In Sodium Chloride 0.9% 100 ml @ 200 mls/hr IVPB Q6HR SOFIYA Rx#:[id number] Dextrose 5% in Water 1, 1000 1100 300 000 ml @ 100 mls/hr IV . [id number] SOFIYA with Sodium Bicarb (1 Meq/ml) 150 ml Rx#:[id number] Output: Urine 505 740 250 Estimated Blood Loss 5 Other: Voiding Method Indwelling Catheter Indwelling Catheter Indwelling Catheter - Exam GENERAL DESCRIPTION: Middle-age female lying in bed, no distress. No tachypnea or accessory muscle of respiration use. HEENT: Shows Pallor , no scleral icterus. Oral mucous membrane is dry. No pharyngeal erythema or thrush NECK: Trachea central, no thyromegaly. LUNGS: Unlabored breathing. Clear to auscultation anteriorly. No wheeze or crackle. HEART: S1, S2, regular rate and rhythm. No loud murmur ABDOMEN: Soft, no tenderness , guarding or rigidity, no organomegaly EXTREMITIES: Bilateral upper extremity currently wrapped no obvious drainage. SKIN: No rash, no masses palpable. NEUROLOGICAL: The patient is awake, alert, oriented x3, mood and affect normal. - Labs CBC & Chem 7: 01/12/25 04:36 01/12/25 04:36 Labs: Abnormal Lab Results - Last 24 Hours (Table) 01/11/25 01/11/25 01/11/25 Range/Units 11:35 11:35 11:35 RBC (4.10-5.20) 10*6/uL Hgb (12.0-15.0) g/dL Hct (37.2-46.3) % Immature Gran # (0.00-0.04) 10*3/uL Lymphocytes # (0.90-5.00) 10*3/uL Eosinophils # (0.04-0.35) 10*3/uL Retic Count 2.34 H (0.10-1.80) % BUN (7-17) mg/dL Creatinine (0.52-1.04) mg/dL Glucose (74-99) mg/dL POC Glucose (mg/dL) (70-110) mg/dL Iron 12 L (50-170) UG/DL TIBC 174 L (228-460) UG/DL % Saturation 6.90 L (12.00-45.00) Transferrin 124.0 L (204.0-354.0) mg/dL Ferritin 298.0 H (10.0-291.0) ng/mL Total Protein (PEP) (6.2-8.2) g/dL IgG 441.0 L (700.0-1600.0) mg/dL IgA <65.0 L (60.0-350.0) mg/dL 01/11/25 01/11/25 01/12/25 Range/Units 11:35 19:10 04:36 RBC 2.76 L (4.10-5.20) 10*6/uL Hgb 8.3 L (12.0-15.0) g/dL Hct 24.1 L (37.2-46.3) % Immature Gran # 0.09 H (0.00-0.04) 10*3/uL Lymphocytes # 0.70 L (0.90-5.00) 10*3/uL Eosinophils # 0.00 L (0.04-0.35) 10*3/uL Retic Count (0.10-1.80) % BUN (7-17) mg/dL Creatinine (0.52-1.04) mg/dL Glucose (74-99) mg/dL POC Glucose (mg/dL) 196 H (70-110) mg/dL Iron (50-170) UG/DL TIBC (228-460) UG/DL % Saturation (12.00-45.00) Transferrin (204.0-354.0) mg/dL Ferritin (10.0-291.0) ng/mL Total Protein (PEP) 4.5 L (6.2-8.2) g/dL IgG (700.0-1600.0) mg/dL IgA (60.0-350.0) mg/dL 01/12/25 Range/Units 04:36 RBC (4.10-5.20) 10*6/uL Hgb (12.0-15.0) g/dL Hct (37.2-46.3) % Immature Gran # (0.00-0.04) 10*3/uL Lymphocytes # (0.90-5.00) 10*3/uL Eosinophils # (0.04-0.35) 10*3/uL Retic Count (0.10-1.80) % BUN 55 H (7-17) mg/dL Creatinine 1.35 H (0.52-1.04) mg/dL Glucose 165 H (74-99) mg/dL POC Glucose (mg/dL) (70-110) mg/dL Iron (50-170) UG/DL TIBC (228-460) UG/DL % Saturation (12.00-45.00) Transferrin (204.0-354.0) mg/dL Ferritin (10.0-291.0) ng/mL Total Protein (PEP) (6.2-8.2) g/dL IgG (700.0-1600.0) mg/dL IgA (60.0-350.0) mg/dL Microbiology - Last 24 Hours (Table) 01/11/25 17:55 Gram Stain - Preliminary Arm - Left 01/11/25 17:45 Gram Stain - Preliminary Arm - Left 01/10/25 20:43 Blood Culture - Preliminary Blood Assessment and Plan Assessment: Septic shock Altered mental status due to sepsis Bilateral upper extremity dog bite and laceration Secondary cellulitis due to dog bite Acute on chronic kidney disease Proximal open radial fracture s/p reduction in emergency department Distal radial fracture nondisplaced Distal ulnar fracture Bilateral basilar atelectasis Cerebral atrophy Plan: Continue gentle rehydration Continue broad-spectrum antibiotics Patient 2 OR for wound debridement cleaning Continue DVT and peptic ulcer disease prophylaxis Care plan discussed with patient and significant other present at bedside at length Continue bicarb drip improved CO2 from 14-19 Time with Patient: Greater than 30
--- NOTE | 2025-01-12 12:34 | P.PN ---
Subjective Progress Note Date: 01/12/25 Principal diagnosis: S/P ORIF left distal ulna fracture and I and D Patient is seen at bedside this morning. She is postop day #1 from ORIF left distal ulna fracture and washout. She has pain at the surgical site as expected but denies any new complaints. She denies numbness, tingling or calf pain. Review of systems is negative for fever, chills, chest pain, shortness of breath or other Objective - Vital Signs Vital signs: Vital Signs Temp 97.9 F 01/12/25 08:00 Pulse 83 01/12/25 11:30 Resp 27 H 01/12/25 09:00 BP 122/24 01/12/25 09:00 Pulse Ox 93 L 01/12/25 09:00 FiO2 Intake & Output 01/11/25 01/12/25 01/12/25 18:59 06:59 18:59 Intake Total 1350 1200 300 Output Total 510 740 250 Balance 840 460 50 Weight 91.5 kg Intake: IV 1350 1200 300 Ampicillin-Sulbactam 3 gm 100 In Sodium Chloride 0.9% 100 ml @ 200 mls/hr IVPB Q6HR [facility] Rx#:[id number] Dextrose 5% in Water 1, 1000 1100 300 000 ml @ 100 mls/hr IV . [id number] SOFIYA with Sodium Bicarb (1 Meq/ml) 150 ml Rx#:[id number] Output: Urine 505 740 250 Estimated Blood Loss 5 Other: Voiding Method Indwelling Catheter Indwelling Catheter Indwelling Catheter - Exam Inspections shows dressing intact to RUE. There is appropriate fitting splint at LUE. There is no active bleeding or drainage. Neurovascular status is intact throughout the upper extremities with motor and sensation fully intact. Calves are soft and nontender. Less than 2 second cap refill is present in all digits. - Constitutional General appearance: Present: no acute distress - Labs CBC & Chem 7: 01/12/25 04:36 01/12/25 04:36 Labs: Abnormal Lab Results - Last 24 Hours (Table) 01/11/25 01/11/25 01/11/25 Range/Units 11:35 11:35 11:35 RBC (4.10-5.20) 10*6/uL Hgb (12.0-15.0) g/dL Hct (37.2-46.3) % Immature Gran # (0.00-0.04) 10*3/uL Lymphocytes # (0.90-5.00) 10*3/uL Eosinophils # (0.04-0.35) 10*3/uL Retic Count 2.34 H (0.10-1.80) % BUN (7-17) mg/dL Creatinine (0.52-1.04) mg/dL Glucose (74-99) mg/dL POC Glucose (mg/dL) (70-110) mg/dL Iron 12 L (50-170) UG/DL TIBC 174 L (228-460) UG/DL % Saturation 6.90 L (12.00-45.00) Transferrin 124.0 L (204.0-354.0) mg/dL Ferritin 298.0 H (10.0-291.0) ng/mL Total Protein (PEP) (6.2-8.2) g/dL IgG 441.0 L (700.0-1600.0) mg/dL IgA <65.0 L (60.0-350.0) mg/dL 01/11/25 01/11/25 01/12/25 Range/Units 11:35 19:10 04:36 RBC 2.76 L (4.10-5.20) 10*6/uL Hgb 8.3 L (12.0-15.0) g/dL Hct 24.1 L (37.2-46.3) % Immature Gran # 0.09 H (0.00-0.04) 10*3/uL Lymphocytes # 0.70 L (0.90-5.00) 10*3/uL Eosinophils # 0.00 L (0.04-0.35) 10*3/uL Retic Count (0.10-1.80) % BUN (7-17) mg/dL Creatinine (0.52-1.04) mg/dL Glucose (74-99) mg/dL POC Glucose (mg/dL) 196 H (70-110) mg/dL Iron (50-170) UG/DL TIBC (228-460) UG/DL % Saturation (12.00-45.00) Transferrin (204.0-354.0) mg/dL Ferritin (10.0-291.0) ng/mL Total Protein (PEP) 4.5 L (6.2-8.2) g/dL IgG (700.0-1600.0) mg/dL IgA (60.0-350.0) mg/dL 01/12/25 Range/Units 04:36 RBC (4.10-5.20) 10*6/uL Hgb (12.0-15.0) g/dL Hct (37.2-46.3) % Immature Gran # (0.00-0.04) 10*3/uL Lymphocytes # (0.90-5.00) 10*3/uL Eosinophils # (0.04-0.35) 10*3/uL Retic Count (0.10-1.80) % BUN 55 H (7-17) mg/dL Creatinine 1.35 H (0.52-1.04) mg/dL Glucose 165 H (74-99) mg/dL POC Glucose (mg/dL) (70-110) mg/dL Iron (50-170) UG/DL TIBC (228-460) UG/DL % Saturation (12.00-45.00) Transferrin (204.0-354.0) mg/dL Ferritin (10.0-291.0) ng/mL Total Protein (PEP) (6.2-8.2) g/dL IgG (700.0-1600.0) mg/dL IgA (60.0-350.0) mg/dL Microbiology - Last 24 Hours (Table) 01/11/25 17:55 Gram Stain - Preliminary Arm - Left 01/11/25 17:45 Gram Stain - Preliminary Arm - Left 01/10/25 20:43 Blood Culture - Preliminary Blood Assessment and Plan (1) Ulna distal fracture Narrative/Plan: She will continue with routine postop orthopedic protocol including pain monique gement, wound care, PT, DVT prophylaxis and medical management. Continue IV antibiotics and dressing changes. Expect that she will transfer to home in next few days Current Visit: Yes Status: Acute Priority: Medium Code(s): S52.609A - UNSP FRACTURE OF LOWER END OF UNSP ULNA, INIT FOR CLOS FX SNOMED Code(s): 276151929 (2) Dog bite Current Visit: Yes Status: Acute Priority: Medium Code(s): W54.0XXA - BITTEN BY DOG, INITIAL ENCOUNTER SNOMED Code(s): 083345544 (3) Forearm laceration Current Visit: Yes Status: Acute Priority: Medium Code(s): S51.819A - LACERATION WITHOUT FOREIGN BODY OF UNSP FOREARM, INIT ENCNTR SNOMED Code(s): 491628121 (4) Open fracture radius shaft Current Visit: Yes Status: Acute Priority: Medium Code(s): S52.309B - UNSP FX SHAFT OF UNSP RADIUS, INIT FOR OPN FX TYPE I/2 SNOMED Code(s): 56368373 Time with Patient: Less than 30
--- NOTE | 2025-01-12 13:03 | P.PN ---
Subjective Progress Note Date: 01/12/25 I am seeing this patient new consultation today, 01/11/25, following a rapid response for hypotension. Patient is a 64-year-old female who was originally brought in by EMS to the emergency department on 01/09/2025. She is currently unable to provide a reliable history. ER documentation states she was eating food when her dog attacked her. She fell out of her chair onto her left arm and the dog continued to maul her bilateral forearms. On ER evaluation she had multiple deep lacerations to bilateral forearms. She also had an obvious left forearm fracture. Reportedly up-to-date with he tetanus immunization. X-ray of the bilateral forearm showing distal third radial fracture and distal ulnar f ractures with step-off and dorsal angulation of the distal fracture fragments on the left. Soft tissue injury over the proximal left forearm. Focal puncture fracture of the proximal left radius. Soft tissue swelling and injury of the proximal right forearm. Did undergo incision and drainage of bilateral forearms with open reduction internal fixation of the left radius the same day. She was covered on antibiotics, continues on Unasyn and vancomycin. Most recent labs were done last night including a CBC with a WBC count of 7, hemoglobin with over 3 g drop from 11.9 to 8.4 g/dL, platelets 143. No obvious signs of acute blood loss. CMP: Sodium 144, potassium 4.5, chloride 106, serum bicarb 14, anion gap 24, BUN 38, creatinine has jumped up to 2.37, blood glucose 86, lactic 1.1. LFTs not remarkable, total bilirubin 2.1. Ammonia 19. Urinalysis was noted. Rapid Response called late last night at 2351 for hypotension. Patient is lethargic, clammy, diaphoretic. Blood pressure was hypotensive 69/37 mmHg. She was febrile with a temperature of 101.5 F. She has since received 2.5 L crystalloid fluid resuscitation. I am recommending the patient be transferred to the intensive care unit for vasopressor support. 01/12/2025, the patient being seen for a follow-up. The patient is awake and alert and confusion has subsided significantly since yesterday. The patient was taken to the operating room for a second time and the patient underwent left distal ulna and fracture of the wrist open reduction internal fixation using a locking plate. Patient also had a left distal ulnar fracture and wound washout and irrigation. The same was done to the left proximal radial fracture and following that the patient was brought back to the intensive care unit. Cultures are still pending. The patient remains on Unasyn and daptomycin. Hemodynamically stable. She is currently on 2 L of oxygen by nasal cannula. She remains on a bicarb infusion at rate of 100 cc an hour. Fluid balance +1.3 L over the past 24 hours. White cell count 7.4 with a hemoglobin 8.3 and a platelet count of 146. Bicarbonate is at 25, BUN 55 with a creatinine of 1.3. The patient has no specific complaints. Incentive spirometer. She is on oxycodone 30 mg 4 times daily for pain in addition to Ultram continues to be basis. CT scan of the abdomen was also done and it showed some atelectatic changes in lung base bilaterally. There is no acute intra-abdominal abnormalities. Objective - Vital Signs Vital signs: Vital Signs Temp 98.2 F 01/12/25 04:00 Pulse 87 01/12/25 07:00 Resp 12 01/12/25 07:00 BP 170/55 01/12/25 07:00 Pulse Ox 95 01/12/25 07:00 FiO2 Intake & Output 01/11/25 01/12/25 01/12/25 18:59 06:59 18:59 Intake Total 1350 1200 100 Output Total 510 740 50 Balance 840 460 50 Weight 91.5 kg Intake: IV 1350 1200 100 Ampicillin-Sulbactam 3 gm 100 In Sodium Chloride 0.9% 100 ml @ 200 mls/hr IVPB Q6HR [facility] Rx#:[id number] Dextrose 5% in Water 1, 1000 1100 100 000 ml @ 100 mls/hr IV . [id number] SOFIYA with Sodium Bicarb (1 Meq/ml) 150 ml Rx#:[id number] Output: Urine 505 740 50 Estimated Blood Loss 5 Other: Voiding Method Indwelling Catheter Indwelling Catheter - Exam GENERAL EXAM: Lethargic, 64-year-old female,, comfortable, awake and oriented x 3, maintained on 2 L of oxygen by nasal cannula. No signs of any respiratory distress HEAD: Normocephalic and atraumatic EYES: Normal reaction of pupils, equal size. No nystagmus. Nonicteric sclera. NOSE: Clear with pink turbinates. THROAT: No erythema or exudates. NECK: No masses, no JVD. CHEST: No chest wall deformity. LUNGS: Equal air entry with no crackles, wheeze, rhonchi or dullness. No conversational dyspnea or accessory muscle use.. CVS: S1 and S2 normal with no audible murmur, regular rhythm. No extra heart sounds ABDOMEN: Obese abdomen, active bowel sounds, no guarding or rigidity, no hepatosplenomegaly. SPINE: No scoliosis or deformity SKIN: No rashes CENTRAL NERVOUS SYSTEM: Lethargic, able to move all extremities, no focal deficits EXTREMITIES: There is no peripheral edema, clubbing, or cyanosis. Peripheral pulses are intact. Capillary refill less than 2 seconds in all extremities - Labs CBC & Chem 7: 01/12/25 04:36 01/12/25 04:36 Labs: Abnormal Lab Results - Last 24 Hours (Table) 01/11/25 01/11/25 01/11/25 Range/Units 11:35 11:35 11:35 RBC (4.10-5.20) 10*6/uL Hgb (12.0-15.0) g/dL Hct (37.2-46.3) % Immature Gran # (0.00-0.04) 10*3/uL Lymphocytes # (0.90-5.00) 10*3/uL Eosinophils # (0.04-0.35) 10*3/uL Retic Count 2.34 H (0.10-1.80) % BUN (7-17) mg/dL Creatinine (0.52-1.04) mg/dL Glucose (74-99) mg/dL POC Glucose (mg/dL) (70-110) mg/dL Iron 12 L (50-170) UG/DL TIBC 174 L (228-460) UG/DL % Saturation 6.90 L (12.00-45.00) Transferrin 124.0 L (204.0-354.0) mg/dL Ferritin 298.0 H (10.0-291.0) ng/mL Total Protein (PEP) (6.2-8.2) g/dL IgG 441.0 L (700.0-1600.0) mg/dL IgA <65.0 L (60.0-350.0) mg/dL 01/11/25 01/11/2525 Range/Units 11:35 19:10 04:36 RBC 2.76 L (4.10-5.20) 10*6/uL Hgb 8.3 L (12.0-15.0) g/dL Hct 24.1 L (37.2-46.3) % Immature Gran # 0.09 H (0.00-0.04) 10*3/uL Lymphocytes # 0.70 L (0.90-5.00) 10*3/uL Eosinophils # 0.00 L (0.04-0.35) 10*3/uL Retic Count (0.10-1.80) % BUN (7-17) mg/dL Creatinine (0.52-1.04) mg/dL Glucose (74-99) mg/dL POC Glucose (mg/dL) 196 H (70-110) mg/dL Iron (50-170) UG/DL TIBC (228-460) UG/DL % Saturation (12.00-45.00) Transferrin (204.0-354.0) mg/dL Ferritin (10.0-291.0) ng/mL Total Protein (PEP) 4.5 L (6.2-8.2) g/dL IgG (700.0-1600.0) mg/dL IgA (60.0-350.0) mg/dL 01/12/25 Range/Units 04:36 RBC (4.10-5.20) 10*6/uL Hgb (12.0-15.0) g/dL Hct (37.2-46.3) % Immature Gran # (0.00-0.04) 10*3/uL Lymphocytes # (0.90-5.00) 10*3/uL Eosinophils # (0.04-0.35) 10*3/uL Retic Count (0.10-1.80) % BUN 55 H (7-17) mg/dL Creatinine 1.35 H (0.52-1.04) mg/dL Glucose 165 H (74-99) mg/dL POC Glucose (mg/dL) (70-110) mg/dL Iron (50-170) UG/DL TIBC (228-460) UG/DL % Saturation (12.00-45.00) Transferrin (204.0-354.0) mg/dL Ferritin (10.0-291.0) ng/mL Total Protein (PEP) (6.2-8.2) g/dL IgG (700.0-1600.0) mg/dL IgA (60.0-350.0) mg/dL Microbiology - Last 24 Hours (Table) 01/11/25 17:55 Gram Stain - Preliminary Arm - Left 01/11/25 17:45 Gram Stain - Preliminary Arm - Left 01/10/25 20:43 Blood Culture - Preliminary Blood Assessment and Plan Assessment: Dog bite, resulting in deep lacerations of bilateral forearm along with a fall, resulting in left forearm radial and ulnar fractures status post 1. Left distal ulnar fracture of wrist open reduction and internal fixation using locking plate 2. Left distal ulnar fracture and wound repeat washout/irrigation 3. Left proximal radius fracture, grade 2 open status post dog bite injury, repeat washout irrigation 4. Right forearm dog bite injury lacerations dressing change Sepsis, septic shock, secondary to above, improved and the patient remains on a combination of Unasyn and daptomycin. Cultures are negative. Anion gap metabolic acidosis, secondary to above, recovered Acute kidney injury, secondary to hypotension and ATN, improving History of hypertension History of mild nonobstructive coronary artery disease Anemia of chronic disease, hemoglobin remained stable Altered mental status secondary to sepsis induced encephalopathy, recovered and the patient's mentation is back to normal. Plan: Discontinue IV fluids Patient is on no pressors Metabolic acidosis has recovered Monitor renal function Awaiting results of the cultures Continue antibiotics including daptomycin and Unasyn Orthopedic surgery is on the case Infectious diseases consulted CAT scan of the abdomen showed some atelectatic changes lung base bilaterally Neurologically improved and the patient is alert and oriented x 3. The patient can be transferred to medical surgical floor. Time with Patient: Greater than 30
--- NOTE | 2025-01-12 14:41 | P.PN ---
Subjective Progress Note Date: 01/12/25 Principal diagnosis: Reason for follow-up is sepsis bilateral upper extremity dog bite cellulitis Patient is a 64-year-old female with a past medical history significant for angina fibromyalgia hypertension chronic back pain, presenting to the hospital after the patient has been attacked by her dog,. Multiple laceration bilateral upper extremity and left radius fracture status post ORIF. On today's evaluation that is 01/12/2025, Patient is afebrile patient is curr ently on 2 L nasal cannula oxygen and denies having any shortness of breath, the patient denies any chest pain or cough, the patient denies any nausea vomiting did not have any abdominal pain and no diarrhea, pain to the left upper extremity is currently controlled. Patient white count 7.45, creatinine is 1.35 cultures currently pending Objective - Vital Signs Vital signs: Vital Signs Temp 97.9 F 01/12/25 08:00 Pulse 85 01/12/25 11:40 Resp 18 01/12/25 11:00 BP 141/91 01/12/25 11:00 Pulse Ox 95 01/12/25 11:00 FiO2 Intake & Output 01/11/25 01/12/25 01/12/25 18:59 06:59 18:59 Intake Total 1350 1200 700 Output Total 510 740 525 Balance 840 460 175 Weight 91.5 kg Intake: IV 1350 1200 300 Ampicillin-Sulbactam 3 gm 100 In Sodium Chloride 0.9% 100 ml @ 200 mls/hr IVPB Q6HR SOFIYA Rx#:[id number] Dextrose 5% in Water 1, 1000 1100 300 000 ml @ 100 mls/hr IV . [id number] SOFIYA with Sodium Bicarb (1 Meq/ml) 150 ml Rx#:[id number] Oral 400 Output: Urine 505 740 525 Estimated Blood Loss 5 Other: Voiding Method Indwelling Catheter Indwelling Catheter Indwelling Catheter - Exam GENERAL DESCRIPTION: Middle-age female lying in bed in no distress RESPIRATORY SYSTEM: Unlabored breathing , decreased breath sounds at bases HEART: S1 S2 regular rate and rhythm , ABDOMEN: Soft , no tenderness EXTREMITIES: Bilateral upper extremity currently wrapped - Labs CBC & Chem 7: 01/12/25 04:36 01/12/25 04:36 Labs: Abnormal Lab Results - Last 24 Hours (Table) 01/11/25 01/11/25 01/11/25 Range/Units 11:35 11:35 11:35 RBC (4.10-5.20) 10*6/uL Hgb (12.0-15.0) g/dL Hct (37.2-46.3) % Immature Gran # (0.00-0.04) 10*3/uL Lymphocytes # (0.90-5.00) 10*3/uL Eosinophils # (0.04-0.35) 10*3/uL Retic Count 2.34 H (0.10-1.80) % BUN (7-17) mg/dL Creatinine (0.52-1.04) mg/dL Glucose (74-99) mg/dL POC Glucose (mg/dL) (70-110) mg/dL Iron 12 L (50-170) UG/DL TIBC 174 L (228-460) UG/DL % Saturation 6.90 L (12.00-45.00) Transferrin 124.0 L (204.0-354.0) mg/dL Ferritin 298.0 H (10.0-291.0) ng/mL Total Protein (PEP) (6.2-8.2) g/dL IgG 441.0 L (700.0-1600.0) mg/dL IgA <65.0 L (60.0-350.0) mg/dL 01/11/25 01/11/25 01/12/25 Range/Units 11:35 19:10 04:36 RBC 2.76 L (4.10-5.20) 10*6/uL Hgb 8.3 L (12.0-15.0) g/dL Hct 24.1 L (37.2-46.3) % Immature Gran # 0.09 H (0.00-0.04) 10*3/uL Lymphocytes # 0.70 L (0.90-5.00) 10*3/uL Eosinophils # 0.00 L (0.04-0.35) 10*3/uL Retic Count (0.10-1.80) % BUN (7-17) mg/dL Creatinine (0.52-1.04) mg/dL Glucose (74-99) mg/dL POC Glucose (mg/dL) 196 H (70-110) mg/dL Iron (50-170) UG/DL TIBC (228-460) UG/DL % Saturation (12.00-45.00) Transferrin (204.0-354.0) mg/dL Ferritin (10.0-291.0) ng/mL Total Protein (PEP) 4.5 L (6.2-8.2) g/dL IgG (700.0-1600.0) mg/dL IgA (60.0-350.0) mg/dL 01/12/25 Range/Units 04:36 RBC (4.10-5.20) 10*6/uL Hgb (12.0-15.0) g/dL Hct (37.2-46.3) % Immature Gran # (0.00-0.04) 10*3/uL Lymphocytes # (0.90-5.00) 10*3/uL Eosinophils # (0.04-0.35) 10*3/uL Retic Count (0.10-1.80) % BUN 55 H (7-17) mg/dL Creatinine 1.35 H (0.52-1.04) mg/dL Glucose 165 H (74-99) mg/dL POC Glucose (mg/dL) (70-110) mg/dL Iron (50-170) UG/DL TIBC (228-460) UG/DL % Saturation (12.00-45.00) Transferrin (204.0-354.0) mg/dL Ferritin (10.0-291.0) ng/mL Total Protein (PEP) (6.2-8.2) g/dL IgG (700.0-1600.0) mg/dL IgA (60.0-350.0) mg/dL Microbiology - Last 24 Hours (Table) 01/11/25 17:55 Gram Stain - Preliminary Arm - Left 01/11/25 17:45 Gram Stain - Preliminary Arm - Left 01/10/25 20:43 Blood Culture - Preliminary Blood Assessment and Plan (1) Dog bite Current Visit: Yes Status: Acute Priority: Medium Code(s): W54.0XXA - BITTEN BY DOG, INITIAL ENCOUNTER SNOMED Code(s): 410766297 (2) Forearm laceration Current Visit: Yes Status: Acute Priority: Medium Code(s): S51.819A - LACERATION WITHOUT FOREIGN BODY OF UNSP FOREARM, INIT ENCNTR SNOMED Code(s): 079610495 (3) Sepsis Current Visit: Yes Status: Acute Code(s): A41.9 - SEPSIS, UNSPECIFIED ORGANISM SNOMED Code(s): 65331650 Plan: 1patient presented to hospital with bilateral upper extremity laceration and a left forearm fracture related to dog bite and injury in this patient was status post left ORIF of the radius and ulna and concern for possible secondary cellulitis related to the dog bite we need to cover for the oral lilly of the dog and less likely the gram-positive skin lilly on the patient 2-patient did have resolution of her fever white count normal cultures currently pending patient to continue with the daptomycin and Unasyn while waiting for the culture to finalize Dictation was produced using [employer] dictation software. please excuse any grammatical, word or spelling errors. Time with Patient: Less than 30
--- NOTE | 2025-01-12 16:37 | P.PN ---
Subjective Progress Note Date: 01/12/25 Principal diagnosis: Dog bite - Underwent ORIF of the left distal ulna yesterday afternoon - No acute events overnight - Clinically is improved compared to yesterday with plans to transfer out of the ICU Objective - Vital Signs Vital signs: Vital Signs Temp 98.6 F 01/12/25 14:00 Pulse 85 01/12/25 11:40 Resp 18 01/12/25 14:00 BP 122/82 01/12/25 14:00 Pulse Ox 95 01/12/25 14:00 FiO2 Intake & Output 01/11/25 01/12/25 01/12/25 18:59 06:59 18:59 Intake Total 1350 1200 700 Output Total 510 740 525 Balance 840 460 175 Weight 91.5 kg Intake: IV 1350 1200 300 Ampicillin-Sulbactam 3 gm 100 In Sodium Chloride 0.9% 100 ml @ 200 mls/hr IVPB Q6HR SOFIYA Rx#:[id number] Dextrose 5% in Water 1, 1000 1100 300 000 ml @ 100 mls/hr IV . [id number] SOFIYA with Sodium Bicarb (1 Meq/ml) 150 ml Rx#:[id number] Oral 400 Output: Urine 505 740 525 Estimated Blood Loss 5 Other: Voiding Method Indwelling Catheter Indwelling Catheter Indwelling Catheter - Constitutional Constitutional Comment(s): Left arm bandaged and in a sling with bandage of the right arm General appearance: Present: cooperative, no acute distress - EENT Eyes: Present: EOMI - Respiratory Details: Nonlabored breathing - Cardiovascular Details: Warm and well-perfused - Gastrointestinal General gastrointestinal: Present: soft. Absent: distended, tenderness - Integumentary Integumentary: Present: pale - Neurologic Neurologic: Present: CNII-XII intact. Absent: focal deficits - Psychiatric Psychiatric: Present: A&O x's 3 - Labs CBC & Chem 7: 01/12/25 04:36 01/12/25 04:36 Labs: Abnormal Lab Results - Last 24 Hours (Table) 01/11/25 01/12/25 01/12/25 Range/Units 19:10 04:36 04:36 RBC 2.76 L (4.10-5.20) 10*6/uL Hgb 8.3 L (12.0-15.0) g/dL Hct 24.1 L (37.2-46.3) % Immature Gran # 0.09 H (0.00-0.04) 10*3/uL Lymphocytes # 0.70 L (0.90-5.00) 10*3/uL Eosinophils # 0.00 L (0.04-0.35) 10*3/uL BUN 55 H (7-17) mg/dL Creatinine 1.35 H (0.52-1.04) mg/dL Glucose 165 H (74-99) mg/dL POC Glucose (mg/dL) 196 H (70-110) mg/dL Microbiology - Last 24 Hours (Table) 01/11/25 17:55 Gram Stain - Preliminary Arm - Left 01/11/25 17:45 Gram Stain - Preliminary Arm - Left 01/10/25 20:43 Blood Culture - Preliminary Blood Assessment and Plan (1) Anemia Current Visit: Yes Status: Acute Priority: Medium Code(s): D64.9 - ANEMIA, UNSPECIFIED SNOMED Code(s): 063196197 Plan: Dog bite, lacerations, radial/ulnar fractures Presented to the emergency department with multiple dog bites. She states that she was sitting in her chair when her dog attacked her, causing her to fall out of a chair and onto her left arm. Patient had multiple lacerations to BUE and open fracture to the left forearm. -Status post I&D bilateral forearm multiple lacerations secondary to dog bite and ORIF left radius and distal left ulna -Defer management to surgical team Sepsis, FRANSICO: -Transferred to ICU for hypotension/sepsis -Off of levophed for over 24 hours and will be transferred out of ICU -UA suspicious for possible UTI -Continues IV abx -Nephrology following Anemia of inflammation: Patient denies any known history of anemia or havibng to [id number] blood products or iron. Upon trending labs patient did have a noted hemoglobin of 6.5 in 2016. Last hemoglobin prior to admission was normal at 13.2 in September 2024. Patient denies rectal bleeding and melena. She does not take any blood thinners -Upon admit hemoglobin was noted at 11.9. Hemoglobin 8.8 on consultation that is stable at 8.3 today -Workup revealed no evidence of iron or vitamin B12 deficiency and was negative for hemolysis, which was reviewed with Leslee and her significant other -Monoclonal gammopathy labs are still pending -Based off of iron studies and clinical presentation, I suspect she has anemia of inflammation secondary to surgery and sepsis/possible infection -We will wait additional results -Continue medical management per primary and consulting teams -Transfuse for hemoglobin less than or equal to 7 Discussed with patient and significant other at bedside Victorina Agosto MD
[2025-01-12] MEDS: HALOPERIDOL LACTATE 5 MG/ML 1 ML VIAL IM STA ×2 (18:06→19:26)
[2025-01-12] MEDS: AMPICILLIN-SULBACTAM 3 GM in SODIUM CHLORIDE 0.9% 100 ML IVPB SCH (20:23)
[2025-01-13] MEDS: HYDROmorphone 0.5 MG/0.5 ML SYRINGE IVP PRN (05:30)
[2025-01-13] MEDS: ACETAMINOPHEN TAB 500 MG TAB PO PRN (08:37)
[2025-01-13] MEDS: cloNIDine HCL 0.2 MG TAB PO STA (10:08)
--- NOTE | 2025-01-13 10:31 | P.PN ---
Subjective Progress Note Date: 01/13/25 Principal diagnosis: Septic shock Altered mental status due to sepsis Bilateral upper extremity dog bite and laceration Secondary cellulitis due to dog bite Proximal open radial fracture s/p reduction in emergency department Distal radial fracture nondisplaced Distal ulnar fracture Bilateral basilar atelectasis Cerebral atrophy January 13, 2025, patient seen eval examined during rounds labs reviewed medications reviewed, patient has been placed on restraints last night as became agitated anxious threatening to leave AMA patient has been counseled at length about importance of staying hospital finishing antibiotics especially in postoperative status and in current clinical condition. Culture results and reports reviewed including wound culture, no growth so far has been noted Gram stain is negative, blood culture also negative. Labs not done today we will order set of labs for tomorrow. Labs from yesterday reviewed BUN/creatinine improved to 55 and 1.35 down from 44/2.472 days ago patient remains on Unasyn and daptomycin ID service following, patient being continued on antidepressant has been on bronchodilator and pain control as well January 12, 2025, patient seen eval examined during rounds labs reviewed medications and care plan discussed, respiratory status slightly improved mental status improving as well, patient is s/p left distal INR open reduction internal fixation using locking plates with wound irrigation current dressing change postop day #1 by orthopedic surgery, Gram stain culture obtained results are pending. Patient remains on IV Unasyn and Vanco tolerating well ID service has been following labs from today reviewed BUN/creatinine improved to 55/1.35 hemoglobin remains stable January 11, 2025, patient seen eval examined due to hypertension and confusion patient transferred to ICU, patient seen evaluated in ICU she is awake but slightly lethargic, patient was initially on Levophed has received 2.5 L of crystalloid blood pressure has improved, orthopedic surgery is following patient is scheduled for surgery of the arm later on today. Review of data revealed that patient was sitting on her chair and was attacked by a dog she fell down from chair both arms were attacked by the dog patient has been found to have open fracture of the left forearm. With multiple laceration of both upper extremity and forearm. X-ray of left forearm revealed distal radial shaft fracture reduced in the emergency department and distal ulnar fracture as well proximal radial fracture nondisplaced noted as well patient is being evaluated for surgical exploration wound clinic under general anesthesia orthopedics following patient is going for surgery later on today. Labs from today reviewed WBC count 6.57, hemoglobin hematocrit 8.8 platelet count 145. BUN/creatinine 44/2.47. Currently patient is on bronchodilators IV Unasyn sodium bicarb has been on antihypertensive agent with Lopressor and losartan Levophed is off Objective - Vital Signs Vital signs: Vital Signs Temp 97.8 F 01/13/25 08:00 Pulse 95 01/13/25 08:00 Resp 11 L 01/13/25 08:00 BP 176/63 01/13/25 08:00 Pulse Ox 97 01/13/25 08:00 FiO2 Intake & Output 01/12/25 01/13/25 01/13/25 18:59 06:59 18:59 Intake Total 700 250 Output Total 825 1100 275 Balance - Intake: IV 300 Dextrose 5% in Water 1, 300 000 ml @ 100 mls/hr IV . [id number] SOFIYA with Sodium Bicarb (1 Meq/ml) 150 ml Rx#:[id number] Oral 400 250 Output: Urine 825 1100 275 Other: Voiding Method Indwelling Catheter Indwelling Catheter - Exam GENERAL DESCRIPTION: Middle-age female lying in bed, no distress. No tachypnea or accessory muscle of respiration use. HEENT: Shows Pallor , no scleral icterus. Oral mucous membrane is dry. No pharyngeal erythema or thrush NECK: Trachea central, no thyromegaly. LUNGS: Unlabored breathing. Clear to auscultation anteriorly. No wheeze or crackle. HEART: S1, S2, regular rate and rhythm. No loud murmur ABDOMEN: Soft, no tenderness , guarding or rigidity, no organomegaly EXTREMITIES: Bilateral upper extremity currently wrapped no obvious drainage. SKIN: No rash, no masses palpable. NEUROLOGICAL: The patient is awake, alert, oriented x3, mood and affect normal. - Labs CBC & Chem 7: 01/12/25 04:36 01/12/25 04:36 Labs: Microbiology - Last 24 Hours (Table) 01/11/25 17:55 Gram Stain - Preliminary Arm - Left Wound Culture - Preliminary 01/11/25 17:45 Gram Stain - Preliminary Arm - Left Wound Culture - Preliminary 01/10/25 20:43 Blood Culture - Preliminary Blood Assessment and Plan Assessment: Septic shock, improved hemodynamic status improved Altered mental status metabolic encephalopathy and delirious state due to sepsis Bilateral upper extremity dog bite and laceration Secondary cellulitis due to dog bite Acute on chronic kidney disease Proximal open radial fracture s/p reduction in emergency department Distal radial fracture nondisplaced Distal ulnar fracture Bilateral basilar atelectasis Cerebral atrophy Plan: Continue gentle rehydration Continue broad-spectrum antibiotics Patient is s/p wound debridement cleaning Continue DVT and peptic ulcer disease prophylaxis Care plan discussed with patient and significant other present at bedside at length Monitor off of bicarb drip improved CO2 from 14-19
[2025-01-13 11:22] LABS: African American GFR (CKD) >90 (>60 ml/min/1.73 sqM); Anion Gap 6 mmol/L; Blood Urea Nitrogen 44 mg/dL (7-17); Calcium 9.2 mg/dL (8.4-10.2); Carbon Dioxide 29 mmol/L (22-30); Chloride 104 mmol/L (98-107); Glucose 100 mg/dL (74-99); Non-African American GFR(CKD) 83 (>60 ml/min/1.73 sqM); Sodium 139 mmol/L (137-145)
[2025-01-13] MEDS: hydrALAZINE HCL 20 MG/ML 1 ML VIAL IVP PRN (11:37)
--- NOTE | 2025-01-13 11:38 | P.PN ---
Subjective Progress Note Date: 01/13/25 Principal diagnosis: S/P ORIF left distal ulna fracture and I and D Patient is seen at bedside this morning. She is postop day #2 from ORIF left distal ulna fracture and washout. She has pain at the surgical site as expected but denies any new complaints. She denies numbness, tingling or calf pain. Review of systems is negative for fever, chills, chest pain, shortness of breath or other Objective - Vital Signs Vital signs: Vital Signs Temp 97.8 F 01/13/25 08:00 Pulse 84 01/13/25 11:31 Resp 11 L 01/13/25 08:00 BP 182/95 01/13/25 11:05 Pulse Ox 96 01/13/25 11:05 FiO2 Intake & Output 01/12/25 01/13/25 01/13/25 18:59 06:59 18:59 Intake Total 700 250 Output Total 825 1100 350 Balance -125 -1100 -100 Intake: IV 300 Dextrose 5% in Water 1, 300 000 ml @ 100 mls/hr IV . [id number] SOFIYA with Sodium Bicarb (1 Meq/ml) 150 ml Rx#:[id number] Oral 400 250 Output: Urine 825 1100 350 Other: Voiding Method Indwelling Catheter Indwelling Catheter Indwelling Catheter - Exam Inspection shows dressing intact to RUE. There is appropriate fitting splint at LUE. There is no active bleeding. Neurovascular status is intact throughout the upper extremities with motor and sensation fully intact. 2= radial pulse and less than 2 second cap refill is present in all digits. - Constitutional General appearance: Present: no acute distress - Labs CBC & Chem 7: 01/12/25 04:36 01/13/25 10:36 Labs: Abnormal Lab Results - Last 24 Hours (Table) 01/13/25 Range/Units 10:36 BUN 44 H (7-17) mg/dL Glucose 100 H (74-99) mg/dL Microbiology - Last 24 Hours (Table) 01/11/25 17:55 Gram Stain - Preliminary Arm - Left Wound Culture - Preliminary 01/11/25 17:45 Gram Stain - Preliminary Arm - Left Wound Culture - Preliminary 01/10/25 20:43 Blood Culture - Preliminary Blood Assessment and Plan (1) Ulna distal fracture Narrative/Plan: She will continue with routine postop orthopedic protocol including pain management, wound care, DVT prophylaxis and medical management. Continue IV antibiotics and dressing changes. Expect that she will transfer to home in next few days Current Visit: Yes Status: Acute Priority: Medium Code(s): S52.609A - UNSP FRACTURE OF LOWER END OF UNSP ULNA, INIT FOR CLOS FX SNOMED Code(s): 940901042 (2) Dog bite Current Visit: Yes Status: Acute Priority: Medium Code(s): W54.0XXA - BITTEN BY DOG, INITIAL ENCOUNTER SNOMED Code(s): 217535284 (3) Forearm laceration Current Visit: Yes Status: Acute Priority: Medium Code(s): S51.819A - LACERATION WITHOUT FOREIGN BODY OF UNSP FOREARM, INIT ENCNTR SNOMED Code(s): 942465121 (4) Open fracture radius shaft Current Visit: Yes Status: Acute Priority: Medium Code(s): S52.309B - UNSP FX SHAFT OF UNSP RADIUS, INIT FOR OPN FX TYPE I/2 SNOMED Code(s): 60859800 Time with Patient: Less than 30
[2025-01-13 12:34] LABS: HCT 23.9 % (37.2-46.3); MCH 29.6 pg (27.0-32.0); MCHC 33.5 g/dL (32.0-37.0); MCV 88.5 fL (80.0-97.0); Mean Platelet Volume 8.2 fL (9.5-12.2); Platelet Count 170 10*3/uL (140-440); RDW 12.6 % (11.5-14.5)
[2025-01-13] MEDS: hydrALAZINE HCL 25 MG TAB PO SCH (14:17)
--- NOTE | 2025-01-13 17:55 | P.PN ---
Subjective Progress Note Date: 01/13/25 I am seeing this patient new consultation today, 01/11/25, following a rapid response for hypotension. Patient is a 64-year-old female who was originally brought in by EMS to the emergency department on 01/09/2025. She is currently unable to provide a reliable history. ER documentation states she was eating food when her dog attacked her. She fell out of her chair onto her left arm and the dog continued to maul her bilateral forearms. On ER evaluation she had multiple deep lacerations to bilateral forearms. She also had an obvious left forearm fracture. Reportedly up-to-date with he tetanus immunization. X-ray of the bilateral forearm showing distal third radial fracture and distal ulnar f ractures with step-off and dorsal angulation of the distal fracture fragments on the left. Soft tissue injury over the proximal left forearm. Focal puncture fracture of the proximal left radius. Soft tissue swelling and injury of the proximal right forearm. Did undergo incision and drainage of bilateral forearms with open reduction internal fixation of the left radius the same day. She was covered on antibiotics, continues on Unasyn and vancomycin. Most recent labs were done last night including a CBC with a WBC count of 7, hemoglobin with over 3 g drop from 11.9 to 8.4 g/dL, platelets 143. No obvious signs of acute blood loss. CMP: Sodium 144, potassium 4.5, chloride 106, serum bicarb 14, anion gap 24, BUN 38, creatinine has jumped up to 2.37, blood glucose 86, lactic 1.1. LFTs not remarkable, total bilirubin 2.1. Ammonia 19. Urinalysis was noted. Rapid Response called late last night at 2351 for hypotension. Patient is lethargic, clammy, diaphoretic. Blood pressure was hypotensive 69/37 mmHg. She was febrile with a temperature of 101.5 F. She has since received 2.5 L crystalloid fluid resuscitation. I am recommending the patient be transferred to the intensive care unit for vasopressor support. 01/12/2025, the patient being seen for a follow-up. The patient is awake and alert and confusion has subsided significantly since yesterday. The patient was taken to the operating room for a second time and the patient underwent left distal ulna and fracture of the wrist open reduction internal fixation using a locking plate. Patient also had a left distal ulnar fracture and wound washout and irrigation. The same was done to the left proximal radial fracture and following that the patient was brought back to the intensive care unit. Cultures are still pending. The patient remains on Unasyn and daptomycin. Hemodynamically stable. She is currently on 2 L of oxygen by nasal cannula. She remains on a bicarb infusion at rate of 100 cc an hour. Fluid balance +1.3 L over the past 24 hours. White cell count 7.4 with a hemoglobin 8.3 and a platelet count of 146. Bicarbonate is at 25, BUN 55 with a creatinine of 1.3. The patient has no specific complaints. Incentive spirometer. She is on oxycodone 30 mg 4 times daily for pain in addition to Ultram continues to be basis. CT scan of the abdomen was also done and it showed some atelectatic changes in lung base bilaterally. There is no acute intra-abdominal abnormalities. On 01/13/2025, the patient is awake and alert. She did encounter some delirium and the patient was given a total of 2 mg Haldol yesterday and the patient's mental status is improved. No significant agitation. No focal neurological deficits. No confusion. She is alert and oriented x 3. She is currently on 2 L of oxygen by nasal cannula. Blood pressure was noted to be elevated and we will make further blood pressure medication adjustments. Otherwise, no other significant events overnight. Remains on the same antibiotic coverage and the patient remains on a combination of daptomycin and Unasyn. She is on no pressors. Pain is under adequate control and the patient remains on Dilaudid. The patient is receiving hydralazine 25 mg p.o. 3 times daily, losartan 100 mg p.o. daily metoprolol 50 mg p.o. twice daily. Blood work from today shows a white cell count of 7.4 with a hemoglobin of 8.3 and a platelet count of 146. Sodium levels at 139, K is at 4, bicarb is at 29, BUN is 44 with a creatinine of 0.7. Cultures obtained intraoperatively are still pending. The patient is otherwise doing well. Clinically stable. Hemodynamically stable. Objective - Vital Signs Vital signs: Vital Signs Temp 97.8 F 01/13/25 08:00 Pulse 95 01/13/25 08:00 Resp 11 L 01/13/25 08:00 BP 176/63 01/13/25 08:00 Pulse Ox 97 01/13/25 08:00 FiO2 Intake & Output 01/12/25 01/13/25 01/13/25 18:59 06:59 18:59 Intake Total 700 250 Output Total 825 1100 275 Balance - Intake: IV 300 Dextrose 5% in Water 1, 300 000 ml @ 100 mls/hr IV . [id number] with Sodium Bicarb (1 Meq/ml) 150 ml Rx#:[id number] Oral 400 250 Output: Urine 825 1100 275 Other: Voiding Method Indwelling Catheter Indwelling Catheter Indwelling Catheter - Exam GENERAL EXAM: Lethargic, 64-year-old female,, comfortable, awake and oriented x 3, maintained on 2 L of oxygen by nasal cannula. No signs of any respiratory distress HEAD: Normocephalic and atraumatic EYES: Normal reaction of pupils, equal size. No nystagmus. Nonicteric sclera. NOSE: Clear with pink turbinates. THROAT: No erythema or exudates. NECK: No masses, no JVD. CHEST: No chest wall deformity. LUNGS: Equal air entry with no crackles, wheeze, rhonchi or dullness. No conversational dyspnea or accessory muscle use.. CVS: S1 and S2 normal with no audible murmur, regular rhythm. No extra heart sounds ABDOMEN: Obese abdomen, active bowel sounds, no guarding or rigidity, no hepatosplenomegaly. SPINE: No scoliosis or deformity SKIN: No rashes CENTRAL NERVOUS SYSTEM: Lethargic, able to move all extremities, no focal deficits EXTREMITIES: There is no peripheral edema, clubbing, or cyanosis. Peripheral pulses are intact. Capillary refill less than 2 seconds in all extremities - Labs CBC & Chem 7: 01/13/25 12:25 01/13/25 10:36 Labs: Microbiology - Last 24 Hours (Table) 01/11/25 17:55 Gram Stain - Preliminary Arm - Left Wound Culture - Preliminary 01/11/25 17:45 Gram Stain - Preliminary Arm - Left Wound Culture - Preliminary 01/10/25 20:43 Blood Culture - Preliminary Blood Assessment and Plan Assessment: Dog bite, resulting in deep lacerations of bilateral forearm along with a fall, resulting in left forearm radial and ulnar fractures status post 1. Left distal ulnar fracture of wrist open reduction and internal fixation using locking plate 2. Left distal ulnar fracture and wound repeat washout/irrigation 3. Left proximal radius fracture, grade 2 open status post dog bite injury, repeat washout irrigation 4. Right forearm dog bite injury lacerations dressing change The patient remains on a combination of Unasyn and daptomycin. Cultures are still negative. Surgical sites in the left upper extremity are appropriately dressed. Dressing is dry. Orthopedic surgery is on the case. Sepsis, septic shock, secondary to above, improved and the patient remains on a combination of Unasyn and daptomycin. Cultures are negative. Hemodynamically stable and the patient is on no pressors Anion gap metabolic acidosis, secondary to above, recovered Acute kidney injury, secondary to hypotension and ATN, recovered History of hypertension, blood pressure is elevated History of mild nonobstructive coronary artery disease Anemia of chronic disease, hemoglobin remained stable Altered mental status secondary to sepsis induced encephalopathy, recovered and the patient's mentation is back to normal. The patient was given Haldol for delirium. Plan: Discontinue IV fluids Patient is on no pressors Metabolic acidosis has recovered Renal function has normalized Awaiting results of the cultures Continue antibiotics including daptomycin and Unasyn Orthopedic surgery is on the case Infectious diseases consulted CAT scan of the abdomen showed some atelectatic changes lung base bilaterally In terms of blood pressure controlled, the patient will be given clonidine 0.2 mg p.o. x 1. The patient is on losartan 100 mg p.o. daily, metoprolol 50 mg p.o. twice a day and hydralazine 25 mg p.o. 3 times daily. Will do further adjustments of blood pressure medication based on her blood pressure control. Wean FiO2 as tolerated, currently on 2 L, attempt to switch this patient to room air oxygen. Provide incentive spirometer. Neurologically improved and the patient is alert and oriented x 3. The patient can be transferred to medical surgical floor. Time with Patient: Greater than 30
[2025-01-14 05:08] LABS: Basophils # (A) 0.03 10*3/uL (0.00-0.10); Basophils % (A) 0.4 %; Eosinophils # (A) 0.24 10*3/uL (0.04-0.35); Eosinophils % (A) 3.2 %; HCT 25.1 % (37.2-46.3); HGB 8.4 g/dL (12.0-15.0); Lymphocytes # (A) 1.86 10*3/uL (0.90-5.00); Lymphocytes % (A) 25.1 %; MCH 29.4 pg (27.0-32.0); MCHC 33.5 g/dL (32.0-37.0); MCV 87.8 fL (80.0-97.0); Mean Platelet Volume 8.8 fL (9.5-12.2); Monocytes % (A) 9.4 %; Neutrophils # (A) 4.57 10*3/uL (1.80-7.70); Neutrophils % (A) 61.6 %; Platelet Count 200 10*3/uL (140-440); RBC 2.86 10*6/uL (4.10-5.20); RDW 12.3 % (11.5-14.5); WBC 7.42 10*3/uL (4.50-10.00)
[2025-01-14 05:55] LABS: ALT 23 U/L (4-34); AST 20 U/L (14-36); African American GFR (CKD) >90 (>60 ml/min/1.73 sqM); Albumin 2.4 g/dL (3.5-5.0); Alkaline Phosphatase 68 U/L (38-126); Anion Gap 6 mmol/L; Blood Urea Nitrogen 27 mg/dL (7-17); Carbon Dioxide 29 mmol/L (22-30); Chloride 103 mmol/L (98-107); Glucose 93 mg/dL (74-99); Non-African American GFR(CKD) >90 (>60 ml/min/1.73 sqM); Potassium 3.4 mmol/L (3.5-5.1); Sodium 138 mmol/L (137-145); Total Protein 4.3 g/dL (6.3-8.2)
[2025-01-14] MEDS: diazePAM 5 MG TAB PO STA (08:54)
[2025-01-14] MEDS: POTASSIUM BICARBONATE/CIT AC 20 MEQ TABLET.EFF NG-TUBE SCH (08:54)
[2025-01-14] MEDS: traMADol 50 MG TAB PO PRN (09:01)
--- NOTE | 2025-01-14 10:16 | P.PN ---
Subjective Progress Note Date: 01/14/25 Principal diagnosis: Dog bite bilateral upper extremities. Status post I&D bilateral forearms and ORIF left radius and distal ulna. 64-year-old female who presents to the emergency department with multiple dog bites. She states that she was sitting in her chair earlier this morning when her dog attacked her. States dog was previously never aggressive. She fell out of a chair and onto her left arm where the dog continued to involve both of her forearms. Patient had obvious open fracture to the left forearm. Patient is right-hand dominant. She has multiple deep lacerations to the bilateral forearms. She does not take any blood thinners. She denies hitting her head or losing consciousness throughout the event. Patient received 2 g of Rocephin by EMS en route to the hospital as well as 100 mcg of fentanyl and 4 mg of Zofran. She is up-to-date on her tetanus. States that the dog is up-to-date on their vaccinations. Last oral intake was around 730 this morning when patient ate breakfast. 01/10/2025: This is a 64-year-old female who is postop day #1 status post I&D bilateral forearm multiple lacerations secondary to dog bite and ORIF left radius. The patient is resting fairly comfortably in bed. She has no new complaints or concerns today. She does state that she is having some burning in her left forearm. Vital signs are stable. 01/14/2025: Patient is postop day #3 status post repeat irrigation of the left forearm lacerations as well as ORIF of the distal ulna. She is postop day #5 status post ORIF of the radius. She has no new complaints or concerns today. She remains in ICU but has been upgraded to [facility] and is just waiting for a bed. Operative cultures show no organisms and no growth at 24 hours. Up to date culture report is pending. Objective - Vital Signs Vital signs: Vital Signs Temp 97.7 F 01/14/25 08:00 Pulse 74 01/14/25 08:00 Resp 16 01/14/25 08:00 BP 180/73 01/14/25 08:00 Pulse Ox 96 01/14/25 08:00 FiO2 Intake & Output 01/13/25 01/14/25 01/14/25 18:59 06:59 18:59 Intake Total 550 Output Total 350 Balance 200 Intake: Oral 550 Output: Urine 350 Other: Voiding Method Indwelling Catheter Indwelling Catheter # Voids 1 1 # Bowel Movements 1 - Exam This is a pleasant 64-year-old female in no acute distress. She is alert and oriented x 3. Exam of the left upper extremity reveals a splint and sling in place. Splint is removed. There is sanguinous drainage on the dressing. Dressing is changed and new splint is applied today. The lacerations show no erythema or active drainage. She has full finger motion without difficulty or pain. Minimal swelling to the fingers noted. Exam of the right upper extremity reveals that her dressing is clean, dry and intact. Dressing is changed today. Wounds have no active drainage. She has full wrist and finger motion without difficulty or pain. Neurovascular status to the upper extremity is intact. - Labs CBC & Chem 7: 01/14/25 04:27 01/14/25 04: Labs: Abnormal Lab Results - Last 24 Hours (Table) 01/13/25 01/13/25 01/14/25 Range/Units 10:36 12:25 04:27 RBC 2.70 L 2.86 L (4.10-5.20) 10*6/uL Hgb 8.0 L 8.4 L (12.0-15.0) g/dL Hct 23.9 L 25.1 L (37.2-46.3) % MPV 8.2 L 8.8 L (9.5-12.2) fL Potassium (3.5-5.1) mmol/L BUN 44 H (7-17) mg/dL Glucose 100 H (74-99) mg/dL Total Bilirubin (0.2-1.3) mg/dL Total Protein (6.3-8.2) g/dL Albumin (3.5-5.0) g/dL 01/14/25 Range/Units 04:27 RBC (4.10-5.20) 10*6/uL Hgb (12.0-15.0) g/dL Hct (37.2-46.3) % MPV (9.5-12.2) fL Potassium 3.4 L (3.5-5.1) mmol/L BUN 27 H (7-17) mg/dL Glucose (74-99) mg/dL Total Bilirubin 2.0 H (0.2-1.3) mg/dL Total Protein 4.3 L (6.3-8.2) g/dL Albumin 2.4 L (3.5-5.0) g/dL Microbiology - Last 24 Hours (Table) 01/11/25 17:45 Gram Stain - Final Arm - Left Wound Culture - Final 01/11/25 17:55 Gram Stain - Final Arm - Left Wound Culture - Final 01/10/25 20:43 Blood Culture - Preliminary Blood Assessment and Plan (1) Dog bite Current Visit: Yes Status: Acute Priority: Medium Code(s): W54.0XXA - BITTEN BY DOG, INITIAL ENCOUNTER SNOMED Code(s): 809762392 (2) Forearm laceration Current Visit: Yes Status: Acute Priority: Medium Code(s): S51.819A - LACERATION WITHOUT FOREIGN BODY OF UNSP FOREARM, INIT ENCNTR SNOMED Code(s): 536695726 (3) Open fracture radius shaft Current Visit: Yes Status: Acute Priority: Medium Code(s): S52.309B - UNSP FX SHAFT OF UNSP RADIUS, INIT FOR OPN FX TYPE I/2 SNOMED Code(s): 20438459 (4) Open fracture of distal ulna Current Visit: Yes Status: Acute Code(s): S52.609B - UNSP FX LOWER END OF UNSP ULNA, INIT FOR OPN FX TYPE I/2 SNOMED Code(s): 468810 Plan: The clinical findings are discussed with the patient. Dressings and left arm splint are changed today. Continue current medical and orthopedic care. The patient may be discharged home whenever cleared with internal medicine and infectious disease. We will plan on seeing her every few days for dressing and splint change.
--- NOTE | 2025-01-14 10:43 | P.PN ---
Subjective Progress Note Date: 01/14/25 Principal diagnosis: Septic shock Altered mental status due to sepsis Bilateral upper extremity dog bite and laceration Secondary cellulitis due to dog bite Proximal open radial fracture s/p reduction in emergency department Distal radial fracture nondisplaced Distal ulnar fracture Bilateral basilar atelectasis Cerebral atrophy January 14, 2025, patient seen eval examined during rounds labs reviewed medications and care plan discussed, patient is more composed agitation and del irious state significantly improved, patient remains afebrile oxygen saturation 96% blood pressure however running high patient has been on multiple antihypertensive agent including losartan hydralazine and Lopressor dose is being adjusted. Wound culture as well as the blood culture results reviewed no growth so far. Labs reviewed CBC overall remains stable no significant changes present, patient with low potassium 3.4 patient to be started on potassium replacement protocol January 13, 2025, patient seen eval examined during rounds labs reviewed medications reviewed, patient has been placed on restraints last night as became agitated anxious threatening to leave AMA patient has been counseled at length about importance of staying hospital finishing antibiotics especially in postoperative status and in current clinical condition. Culture results and reports reviewed including wound culture, no growth so far has been noted Gram stain is negative, blood culture also negative. Labs not done today we will order set of labs for tomorrow. Labs from yesterday reviewed BUN/creatinine improved to 55 and 1.35 down from 44/2.472 days ago patient remains on Unasyn and daptomycin ID service following, patient being continued on antidepressant has been on bronchodilator and pain control as well January 12, 2025, patient seen eval examined during rounds labs reviewed medications and care plan discussed, respiratory status slightly improved mental status improving as well, patient is s/p left distal INR open reduction internal fixation using locking plates with wound irrigation current dressing change postop day #1 by orthopedic surgery, Gram stain culture obtained results are pending. Patient remains on IV Unasyn and Vanco tolerating well ID service has been following labs from today reviewed BUN/creatinine improved to 55/1.35 hemoglobin remains stable January 11, 2025, patient seen eval examined due to hypertension and confusion patient transferred to ICU, patient seen evaluated in ICU she is awake but slightly lethargic, patient was initially on Levophed has received 2.5 L of crystalloid blood pressure has improved, orthopedic surgery is following patient is scheduled for surgery of the arm later on today. Review of data revealed that patient was sitting on her chair and was attacked by a dog she fell down from chair both arms were attacked by the dog patient has been found to have open fracture of the left forearm. With multiple laceration of both upper extremity and forearm. X-ray of left forearm revealed distal radial shaft fracture reduced in the emergency department and distal ulnar fracture as well proximal radial fracture nondisplaced noted as well patient is being evaluated for surgical exploration wound clinic under general anesthesia orthopedics [facility] patient is going for surgery later on today. Labs from today reviewed WBC count 6.57, hemoglobin hematocrit 8.8/26 platelet count 145. BUN/creatinine 44/2.47. Currently patient is on bronchodilators IV Unasyn sodium bicarb has been on antihypertensive agent with Lopressor and losartan Levophed is off Objective - Vital Signs Vital signs: Vital Signs Temp 97.7 F 01/14/25 08:00 Pulse 74 01/14/25 08:00 Resp 16 01/14/25 08:00 BP 180/73 01/14/25 08:00 Pulse Ox 96 01/14/25 08:00 FiO2 Intake & Output 01/13/25 01/14/25 01/14/25 18:59 06:59 18:59 Intake Total 550 Output Total 350 Balance 200 Intake: Oral 550 Output: Urine 350 Other: Voiding Method Indwelling Catheter Indwelling Catheter # Voids 1 1 # Bowel Movements 1 - Exam GENERAL DESCRIPTION: Middle-age female lying in bed, no distress. No tachypnea or accessory muscle of respiration use. HEENT: Shows Pallor , no scleral icterus. Oral mucous membrane is dry. No pharyngeal erythema or thrush NECK: Trachea central, no thyromegaly. LUNGS: Unlabored breathing. Clear to auscultation anteriorly. No wheeze or crackle. HEART: S1, S2, regular rate and rhythm. No loud murmur ABDOMEN: Soft, no tenderness , guarding or rigidity, no organomegaly EXTREMITIES: Bilateral upper extremity currently wrapped no obvious drainage. SKIN: No rash, no masses palpable. NEUROLOGICAL: The patient is awake, alert, oriented x3, mood and affect normal. - Labs CBC & Chem 7: 01/14/25 04:27 01/14/25 04:27 Labs: Abnormal Lab Results - Last 24 Hours (Table) 04/01/13/25 01/14/25 Range/Units 10:36 12:25 04:27 RBC 2.70 L 2.86 L (4.10-5.20) 10*6/uL Hgb 8.0 L 8.4 L (12.0-15.0) g/dL Hct 23.9 L 25.1 L (37.2-46.3) % MPV 8.2 L 8.8 L (9.5-12.2) fL Potassium (3.5-5.1) mmol/L BUN 44 H (7-17) mg/dL Glucose 100 H (74-99) mg/dL Total Bilirubin (0.2-1.3) mg/dL Total Protein (6.3-8.2) g/dL Albumin (3.5-5.0) g/dL 01/14/25 Range/Units 04:27 RBC (4.10-5.20) 10*6/uL Hgb (12.0-15.0) g/dL Hct (37.2-46.3) % MPV (9.5-12.2) fL Potassium 3.4 L (3.5-5.1) mmol/L BUN 27 H (7-17) mg/dL Glucose (74-99) mg/dL Total Bilirubin 2.0 H (0.2-1.3) mg/dL Total Protein 4.3 L (6.3-8.2) g/dL Albumin 2.4 L (3.5-5.0) g/dL Microbiology - Last 24 Hours (Table) 01/11/25 17:45 Gram Stain - Final Arm - Left Wound Culture - Final 01/11/25 17:55 Gram Stain - Final Arm - Left Wound Culture - Final 01/10/25 20:43 Blood Culture - Preliminary Blood Assessment and Plan Assessment: Septic shock, improved hemodynamic status improved Altered mental status metabolic encephalopathy and delirious state due to sepsis, continue to improve Bilateral upper extremity dog bite and laceration, so far cultures have been negative Secondary cellulitis due to dog bite Acute on chronic kidney disease Proximal open radial fracture s/p reduction in emergency department Distal radial fracture nondisplaced Distal ulnar fracture Bilateral basilar atelectasis Cerebral atrophy Plan: Continue gentle rehydration Continue broad-spectrum antibiotics Patient to be evaluated for long-term antibiotics and PICC line, will discuss with ID's Replace potassium Patient is s/p wound debridement cleaning Continue DVT and peptic ulcer disease prophylaxis Care plan discussed with patient and significant other present at bedside at length Monitor off of bicarb drip improved CO2 from 14-19 Time with Patient: Greater than 30
[2025-01-14 10:48] LABS: Free Kappa Lt Chain Qnt, Serum 1.29 mg/dL (0.33-1.94)
--- NOTE | 2025-01-14 12:44 | P.PN ---
Subjective Progress Note Date: 01/14/25 Principal diagnosis: Dog bite with sepsis, septic shock, I am seeing this patient new consultation today, 01/11/25, following a rapid response for hypotension. Patient is a 64-year-old female who was originally brought in by EMS to the emergency department on 01/09/2025. She is currently unable to provide a reliable history. ER documentation states she was eating food when her dog attacked her. She fell out of her chair onto her left arm and the dog continued to maul her bilateral forearms. On ER evaluation she had multiple deep lacerations to bilateral forearms. She also had an obvious left forearm fracture. Reportedly up-to-date with he tetanus immunization. X-ray of the bilateral forearm showing distal third radial fracture and distal ulnar fractures with step-off and dorsal angulation of the distal fracture fragments on the left. Soft tissue injury over the proximal left forearm. Focal puncture fracture of the proximal left radius. Soft tissue swelling and injury of the proximal right forearm. Did undergo incision and drainage of bilateral forearms with open reduction internal fixation of the left radius the same day. She was covered on antibiotics, continues on Unasyn and vancomycin. Most recent labs were done last night including a CBC with a WBC count of 7, hemoglobin with over 3 g drop from 11.9 to 8.4 g/dL, platelets 143. No obvious signs of acute blood loss. CMP: Sodium 144, potassium 4.5, chloride 106, serum bicarb 14, anion gap 24, BUN 38, creatinine has jumped up to 2.37, blood glucose 86, lactic 1.1. LFTs not remarkable, total bilirubin 2.1. Ammonia 19. Urinalysis was noted. Rapid Response called late last night at 2351 for hypotension. Patient is lethargic, clammy, diaphoretic. Blood pressure was hypotensive 69/37 mmHg. She was febrile with a temperature of 101.5 F. She has since received 2.5 L crystalloid fluid resuscitation. I am recommending the patient be transferred to the intensive care unit for vasopressor support. 01/12/2025, the patient being seen for a follow-up. The patient is awake and alert and confusion has subsided significantly since yesterday. The patient was taken to the operating room for a second time and the patient underwent left distal ulna and fracture of the wrist open reduction internal fixation using a locking plate. Patient also had a left distal ulnar fracture and wound washout and irrigation. The same was done to the left proximal radial fracture and following that the patient was brought back to the intensive care unit. Cultures are still pending. The patient remains on Unasyn and daptomycin. Hemodynamically stable. She is currently on 2 L of oxygen by nasal cannula. She remains on a bicarb infusion at rate of 100 cc an hour. Fluid balance +1.3 L over the past 24 hours. White cell count 7.4 with a hemoglobin 8.3 and a platelet count of 146. Bicarbonate is at 25, BUN 55 with a creatinine of 1.3. The patient has no specific complaints. Incentive spirometer. She is on oxycodone 30 mg 4 times daily for pain in addition to Ultram continues to be basis. CT scan of the abdomen was also done and it showed some atelectatic changes in lung base bilaterally. There is no acute intra-abdominal abnormalities. On 01/13/2025, the patient is awake and alert. She did encounter some delirium and the patient was given a total of 2 mg Haldol yesterday and the patient's mental status is improved. No significant agitation. No focal neurological def icits. No confusion. She is alert and oriented x 3. She is currently on 2 L of oxygen by nasal cannula. Blood pressure was noted to be elevated and we will make further blood pressure medication adjustments. Otherwise, no other significant events overnight. Remains on the same antibiotic coverage and the patient remains on a combination of daptomycin and Unasyn. She is on no pressors. Pain is under adequate control and the patient remains on Dilaudid. The patient is receiving hydralazine 25 mg p.o. 3 times daily, losartan 100 mg p.o. daily metoprolol 50 mg p.o. twice daily. Blood work from today shows a white cell count of 7.4 with a hemoglobin of 8.3 and a platelet count of 146. Sodium levels at 139, K is at 4, bicarb is at 29, BUN is 44 with a creatinine of 0.7. Cultures obtained intraoperatively are still pending. The patient is otherwise doing well. Clinically stable. Hemodynamically stable. Patient was seen today on 01/14/2025, patient is doing great, she is on room air, in the ICU, she is now requiring a midline placement because she has no IV access remains on Unasyn and daptomycin. Blood cultures are negative for the last 72 hours. Patient is not in any distress, she is hemodynamically stable, labs were reviewed, and I plan to transfer the patient out of the ICU to regular medical floor. WBC count is 7.4 hemoglobin 8.4 electrolytes are normal BUN is 27 creatinine 0.6. Objective - Vital Signs Vital signs: Vital Signs Temp 97.7 F 01/14/25 08:00 Pulse 72 01/14/25 11:36 Resp 16 01/14/25 08:00 BP 180/73 01/14/25 08:00 Pulse Ox 96 01/14/25 08:00 FiO2 Intake & Output 01/13/25 01/14/25 01/14/25 18:59 06:59 18:59 Intake Total 550 Output Total 350 Balance 200 Intake: Oral 550 Output: Urine 350 Other: Voiding Method Indwelling Catheter Indwelling Catheter Indwelling Catheter # Voids 1 1 # Bowel Movements 1 - Exam GENERAL EXAM: 64-year-old female in no distress on room air HEAD: Normocephalic and atraumatic EYES: Normal reaction of pupils, equal size. No nystagmus. Nonicteric sclera. NOSE: Clear with pink turbinates. THROAT: No erythema or exudates. NECK: No masses, no JVD. CHEST: No chest wall deformity. LUNGS: Equal air entry with no crackles, wheeze, rhonchi or dullness. No conversational dyspnea or accessory muscle use.. CVS: S1 and S2 normal with no audible murmur, regular rhythm. No extra heart sounds ABDOMEN: Obese abdomen, active bowel sounds, no guarding or rigidity, no hepatosplenomegaly. SKIN: Both upper extremities are wrapped with sterile dressing. Could not visualize her bite wounds CENTRAL NERVOUS SYSTEM: Lethargic, able to move all extremities, no focal deficits EXTREMITIES: Upper extremities are wrapped with sterile dressing - Labs CBC & Chem 7: 01/14/25 04:27 01/14/25 04:27 Labs: Abnormal Lab Results - Last 24 Hours (Table) 01/14/25 01/14/25 Range/Units 04: 04: RBC 2.86 L (4.10-5.20) 10*6/uL Hgb 8.4 L (12.0-15.0) g/dL Hct 25.1 L (37.2-46.3) % MPV 8.8 L (9.5-12.2) fL Potassium 3.4 L (3.5-5.1) mmol/L BUN 27 H (7-17) mg/dL Total Bilirubin 2.0 H (0.2-1.3) mg/dL Total Protein 4.3 L (6.3-8.2) g/dL Albumin 2.4 L (3.5-5.0) g/dL Microbiology - Last 24 Hours (Table) 01/11/25 17:45 Gram Stain - Final Arm - Left Wound Culture - Final 01/11/25 17:55 Gram Stain - Final Arm - Left Wound Culture - Final 01/10/25 20:43 Blood Culture - Preliminary Blood Assessment and Plan Assessment: Impression: Septic shock secondary to cellulitis secondary to dog bites Acute on chronic kidney disease Acute metabolic encephalopathy, resolved secondary to sepsis Distal ulnar fracture Distal radial fracture Proximal open radial fracture status post reduction in the emergency room department Recommendation: Continue broad-spectrum antibiotics, as per infectious disease on the case Transfer patient to medical surgical floor Patient is s/p wound debridement cleaning Continue DVT and peptic ulcer disease prophylaxis Will sign off and see the patient as needed Time with Patient: Less than 30
[2025-01-14] MEDS: AMPICILLIN-SULBACTAM 3 GM in SODIUM CHLORIDE 0.9% 100 ML IVPB SCH (14:47)
--- NOTE | 2025-01-14 22:16 | P.PN ---
Subjective Progress Note Date: 01/13/25 Principal diagnosis: Reason for follow-up is sepsis bilateral upper extremity dog bite cellulitis Patient is a 64-year-old female with a past medical history significant for angina fibromyalgia hypertension chronic back pain, presenting to the hospital after the patient has been attacked by her dog,. Multiple laceration bilateral upper extremity and left radius fracture status post ORIF. On today's evaluation that is 01/13/2025, patient has been afebrile, patient is breathing comfortably and is currently on 1 L nasal cannula oxygen patient denies having any chest pain and cough, patient denies nausea vomiting or diarrhea and no abdominal pain, pain to bilateral upper extremities currently controlled. The patient white count 6.80 creatinine 0.77 cultures currently pending Objective - Vital Signs Vital signs: Vital Signs Temp 97.8 F 01/13/25 08:00 Pulse 60 01/13/25 13:05 Resp 11 L 01/13/25 08:00 BP 176/59 01/13/25 13:05 Pulse Ox 99 01/13/25 13:05 FiO2 Intake & Output 01/12/25 01/13/25 01/13/25 18:59 06:59 18:59 Intake Total 700 250 Output Total 825 1100 350 Balance -125 -1100 -100 Intake: IV 300 Dextrose 5% in Water 1, 300 000 ml @ 100 mls/hr IV . [id number] with Sodium Bicarb (1 Meq/ml) 150 ml Rx#:[id number] Oral 400 250 Output: Urine 825 1100 350 Other: Voiding Method Indwelling Catheter Indwelling Catheter Indwelling Catheter - Exam GENERAL DESCRIPTION: Middle-age female lying in bed in no distress RESPIRATORY SYSTEM: Unlabored breathing , decreased breath sounds at bases HEART: S1 S2 regular rate and rhythm , ABDOMEN: Soft , no tenderness EXTREMITIES: Bilateral upper extremity currently wrapped - Labs CBC & Chem 7: 01/14/25 04:27 01/14/25 04:27 Labs: Abnormal Lab Results - Last 24 Hours (Table) 01/13/25 01/13/25 Range/Units 10:36 12:25 RBC 2.70 L (4.10-5.20) 10*6/uL Hgb 8.0 L (12.0-15.0) g/dL Hct 23.9 L (37.2-46.3) % MPV 8.2 L (9.5-12.2) fL BUN 44 H (7-17) mg/dL Glucose 100 H (74-99) mg/dL Microbiology - Last 24 Hours (Table) 01/11/25 17:55 Gram Stain - Preliminary Arm - Left Wound Culture - Preliminary 01/11/25 17:45 Gram Stain - Preliminary Arm - Left Wound Culture - Preliminary 01/10/25 20:43 Blood Culture - Preliminary Blood Assessment and Plan (1) Dog bite Current Visit: Yes Status: Acute Priority: Medium Code(s): W54.0XXA - BITTEN BY DOG, INITIAL ENCOUNTER SNOMED Code(s): 447121927 (2) Forearm laceration Current Visit: Yes Status: Acute Priority: Medium Code(s): S51.819A - LACERATION WITHOUT FOREIGN BODY OF UNSP FOREARM, INIT ENCNTR SNOMED Code(s): 549723020 (3) Sepsis Current Visit: Yes Status: Acute Code(s): A41.9 - SEPSIS, UNSPECIFIED ORGANISM SNOMED Code(s): 98663716 Plan: 1patient presented to hospital with bilateral upper extremity laceration and a left forearm fracture related to dog bite and injury in this patient was status post left ORIF of the radius and ulna and concern for possible secondary cellulitis related to the dog bite we need to cover for the oral lilly of the dog and less likely the gram-positive skin lilly on the patient 2-patient did have resolution of her fever white count normal cultures currently pending 3patient to continue with the daptomycin and Unasyn while waiting for the culture to finalize Dictation was produced using [employer] dictation software. please excuse any grammatical, word or spelling errors. Time with Patient: Less than 30
--- NOTE | 2025-01-14 22:17 | P.PN ---
Subjective Progress Note Date: 01/14/25 Principal diagnosis: Reason for follow-up is sepsis bilateral upper extremity dog bite cellulitis Patient is a 64-year-old female with a past medical history significant for angina fibromyalgia hypertension chronic back pain, presenting to the hospital after the patient has been attacked by her dog,. Multiple laceration bilateral upper extremity and left radius fracture status post ORIF. On today's evaluation that is 01/14/2025, Patient is afebrile this morning pa argenis denies having any chest pain shortness of breath or cough, the patient is currently on 1 L nasal cannula oxygen patient denies any abdominal pain no diarrhea no nausea no vomiting, pain to the left upper extremity has decreased in intensity. Patient white count 7.42 creatinine 0.6 aerobic culture negative and aerobic cultures pending Objective - Vital Signs Vital signs: Vital Signs Temp 97.7 F 01/14/25 08:00 Pulse 72 01/14/25 11:36 Resp 16 01/14/25 08:00 BP 180/73 01/14/25 08:00 Pulse Ox 96 01/14/25 08:00 FiO2 Intake & Output 01/13/25 01/14/25 01/14/25 18:59 06:59 18:59 Intake Total 550 Output Total 350 Balance 200 Intake: Oral 550 Output: Urine 350 Other: Voiding Method Indwelling Catheter Indwelling Catheter Indwelling Catheter # Voids 1 1 # Bowel Movements 1 - Exam GENERAL DESCRIPTION: Middle-age female lying in bed in no distress RESPIRATORY SYSTEM: Unlabored breathing , decreased breath sounds at bases HEART: S1 S2 regular rate and rhythm , ABDOMEN: Soft , no tenderness EXTREMITIES: Bilateral upper extremity currently wrapped - Labs CBC & Chem 7: 01/14/25 04:27 01/14/25 04:27 Labs: Abnormal Lab Results - Last 24 Hours (Table) 01/14/25 01/14/25 Range/Units 04:27 04:27 RBC 2.86 L (4.10-5.20) 10*6/uL Hgb 8.4 L (12.0-15.0) g/dL Hct 25.1 L (37.2-46.3) % MPV 8.8 L (9.5-12.2) fL Potassium 3.4 L (3.5-5.1) mmol/L BUN 27 H (7-17) mg/dL Total Bilirubin 2.0 H (0.2-1.3) mg/dL Total Protein 4.3 L (6.3-8.2) g/dL Albumin 2.4 L (3.5-5.0) g/dL Microbiology - Last 24 Hours (Table) 01/11/25 17:45 Gram Stain - Final Arm - Left Wound Culture - Final 01/11/25 17:55 Gram Stain - Final Arm - Left Wound Culture - Final 01/10/25 20:43 Blood Culture - Preliminary Blood Assessment and Plan (1) Dog bite Current Visit: Yes Status: Acute Priority: Medium Code(s): W54.0XXA - BI TTEN BY DOG, INITIAL ENCOUNTER SNOMED Code(s): 534213862 (2) Forearm laceration Current Visit: Yes Status: Acute Priority: Medium Code(s): S51.819A - LACERATION WITHOUT FOREIGN BODY OF UNSP FOREARM, INIT ENCNTR SNOMED Code(s): 104926482 (3) Sepsis Current Visit: Yes Status: Acute Code(s): A41.9 - SEPSIS, UNSPECIFIED ORGANISM SNOMED Code(s): 65648828 Plan: 1patient presented to hospital with bilateral upper extremity laceration and a left forearm fracture related to dog bite and injury in this patient was status post left ORIF of the radius and ulna and concern for possible secondary cellulitis related to the dog bite we need to cover for the oral lilly of the dog and less likely the gram-positive skin lilly on the patient 2-patient did have resolution of her fever white count normal aerobic culture has been negative so far anaerobe cultures are pending 3patient to continue with Unasyn dose administered up because improvement her kidney function and discontinue daptomycin as no MRSA Dictation was produced using [employer] dictation software. please excuse any grammatical, word or spelling errors. Time with Patient: Less than 30
[2025-01-15] MEDS: hydrALAZINE HCL 20 MG/ML 1 ML VIAL IVP STA (00:46)
[2025-01-15] MEDS: hydrALAZINE HCL 20 MG/ML 1 ML VIAL IVP PRN (02:40)
[2025-01-15] MEDS: hydrOXYzine pamoate 25 MG CAP PO PRN (05:22)
[2025-01-15 06:04] LABS: Basophils # (A) 0.03 10*3/uL (0.00-0.10); Basophils % (A) 0.3 %; Eosinophils # (A) 0.23 10*3/uL (0.04-0.35); Eosinophils % (A) 2.7 %; HCT 25.1 % (37.2-46.3); HGB 8.6 g/dL (12.0-15.0); Lymphocytes # (A) 2.07 10*3/uL (0.90-5.00); Lymphocytes % (A) 24.1 %; MCH 29.8 pg (27.0-32.0); MCHC 34.3 g/dL (32.0-37.0); MCV 86.9 fL (80.0-97.0); Mean Platelet Volume 8.9 fL (9.5-12.2); Monocytes % (A) 9.3 %; Neutrophils # (A) 5.43 10*3/uL (1.80-7.70); Neutrophils % (A) 63.4 %; Platelet Count 259 10*3/uL (140-440); RBC 2.89 10*6/uL (4.10-5.20); RDW 12.4 % (11.5-14.5); WBC 8.58 10*3/uL (4.50-10.00)
[2025-01-15 06:30] LABS: ALT 20 U/L (4-34); AST 19 U/L (14-36); African American GFR (CKD) >90 (>60 ml/min/1.73 sqM); Albumin 2.4 g/dL (3.5-5.0); Alkaline Phosphatase 73 U/L (38-126); Anion Gap 7 mmol/L; Blood Urea Nitrogen 15 mg/dL (7-17); Calcium 8.5 mg/dL (8.4-10.2); Carbon Dioxide 23 mmol/L (22-30); Chloride 104 mmol/L (98-107); Glucose 91 mg/dL (74-99); Non-African American GFR(CKD) >90 (>60 ml/min/1.73 sqM); Potassium 3.8 mmol/L (3.5-5.1); Sodium 134 mmol/L (137-145); Total Bilirubin 2.5 mg/dL (0.2-1.3); Total Protein 4.4 g/dL (6.3-8.2)
[2025-01-15] MEDS ORDERED: ALPRAZolam 0.5 MG TAB PO PRN (06:31)
[2025-01-15 06:36] LABS: Glucose,Whole Blood 103 mg/dL (70-110)
[2025-01-15] MEDS: POTASSIUM CHLORIDE 10 MEQ in WATER FOR INJECTION 1 100ML.BAG IVPB SCH (08:24)
[2025-01-15 10:26] LABS: Appearance,Urine Clear (Clear); Bilirubin,Urine Negative (Negative); Blood,Urine Negative (Negative); Color,Urine Colorless; Glucose,Urine (UA) Negative (Negative); Ketones,Urine 1+ (Negative); Leukocyte Esterase,Urine Negative (Negative); Nitrite,Urine Negative (Negative); Protein,Urine Negative (Negative); Specific Gravity,Urine 1.008 (1.001-1.035); Urobilinogen,Urine <2.0 mg/dL (<2.0)
--- NOTE | 2025-01-15 11:12 | P.PN ---
Subjective Progress Note Date: 01/15/25 Principal diagnosis: Septic shock Altered mental status due to sepsis Bilateral upper extremity dog bite and laceration Secondary cellulitis due to dog bite Proximal open radial fracture s/p reduction in emergency department Distal radial fracture nondisplaced Distal ulnar fracture Bilateral basilar atelectasis Cerebral atrophy 2024, patient seen and examined during rounds labs reviewed medication care plan discussed, overall respiratory status slowly improving ongoing cough congestion is present, wound dressing has been change, discussed with nursing staff patient is to be eval for PICC line and possible long-term antibiotics as per ID, patient has been feeling very anxious and wants to go home as soon as possible. Labs done today reviewed hemoglobin hematocrit remained stable, so his white cell count and platelet, mild hyponatremia hypokalemia is present BUN/creatinine within normal limit January 14, 2025, patient seen eval examined during rounds labs reviewed m edications and care plan discussed, patient is more composed agitation and delirious state significantly improved, patient remains afebrile oxygen saturation 96% blood pressure however running high patient has been on multiple antihypertensive agent including losartan hydralazine and Lopressor dose is being adjusted. Wound culture as well as the blood culture results reviewed no growth so far. Labs reviewed CBC overall remains stable no significant changes present, patient with low potassium 3.4 patient to be started on potassium replacement protocol January 13, 2025, patient seen eval examined during rounds labs reviewed medications reviewed, patient has been placed on restraints last night as became agitated anxious threatening to leave AMA patient has been counseled at length about importance of staying hospital finishing antibiotics especially in postoperative status and in current clinical condition. Culture results and reports reviewed including wound culture, no growth so far has been noted Gram stain is negative, blood culture also negative. Labs not done today we will ord er set of labs for tomorrow. Labs from yesterday reviewed BUN/creatinine improved to 55 and 1.35 down from 44/2.472 days ago patient remains on Unasyn and daptomycin ID service following, patient being continued on antidepressant has been on bronchodilator and pain control as well January 12, 2025, patient seen eval examined during rounds labs reviewed medications and care plan discussed, respiratory status slightly improved mental status improving as well, patient is s/p left distal INR open reduction internal fixation using locking plates with wound irrigation current dressing change postop day #1 by orthopedic surgery, Gram stain culture obtained results are pending. Patient remains on IV Unasyn and Vanco tolerating well ID service has been following labs from today reviewed BUN/creatinine improved to 55/1.35 hemoglobin remains stable January 11, 2025, patient seen eval examined due to hypertension and confusion patient transferred to ICU, patient seen evaluated in ICU she is awake but slightly lethargic, patient was initially on Levophed has received 2.5 L of crystalloid blood pressure has improved, orthopedic surgery is following patient is scheduled for surgery of the arm later on today. Review of data revealed that patient was sitting on her chair and was attacked by a dog she fell down from chair both arms were attacked by the dog patient has been found to have open fracture of the left forearm. With multiple laceration of both upper extremity and forearm. X-ray of left forearm revealed distal radial shaft fracture reduced in the emergency department and distal ulnar fracture as well proximal radial fracture nondisplaced noted as well patient is being evaluated for surgical exploration wound clinic under general anesthesia orthopedics following patient is going for surgery later on today. Labs from today reviewed WBC count 6.57, hemoglobin hematocrit 8.8/26 platelet count 145. BUN/creatinine 44/2.47. Currently patient is on bronchodilators IV Unasyn sodium bicarb has been on antihypertensive agent with Lopressor and losartan Levophed is off Objective - Vital Signs Vital signs: Vital Signs Temp 98.2 F 01/15/25 02:00 Pulse 87 01/15/25 02:00 Resp 16 01/15/25 02:00 BP 168/61 01/15/25 02:00 Pulse Ox 97 01/15/25 02:00 FiO2 Intake & Output 01/14/25 01/15/25 01/15/25 18:59 06:59 18:59 Intake Total 600 100 Balance 600 100 Intake: IV 100 100 Ampicillin-Sulbactam 3 gm 100 100 In Sodium Chloride 0.9% 100 ml @ 200 mls/hr IVPB Q12H [facility] Rx#:[id number] Oral 500 Other: Voiding Method Indwelling Catheter Indwelling Catheter # Voids 3 3 - Exam GENERAL DESCRIPTION: Middle-age female lying in bed, no distress. No tachypnea or accessory muscle of respiration use. HEENT: Shows Pallor , no scleral icterus. Oral mucous membrane is dry. No pharyngeal erythema or thrush NECK: Trachea central, no thyromegaly. LUNGS: Unlabored breathing. Clear to auscultation anteriorly. No wheeze or crackle. HEART: S1, S2, regular rate and rhythm. No loud murmur ABDOMEN: Soft, no tenderness , guarding or rigidity, no organomegaly EXTREMITIES: Bilateral upper extremity currently wrapped no obvious drainage. SKIN: No rash, no masses palpable. NEUROLOGICAL: The patient is awake, alert, oriented x3, mood and affect normal. - Labs CBC & Chem 7: 01/15/25 05:28 01/15/25 05:28 Labs: Abnormal Lab Results - Last 24 Hours (Table) 01/15/25 01/15/25 01/15/25 Range/Units 05:28 05:28 09:53 RBC 2.89 L (4.10-5.20) 10*6/uL Hgb 8.6 L (12.0-15.0) g/dL Hct 25.1 L (37.2-46.3) % MPV 8.9 L (9.5-12.2) fL Sodium 134 L (137-145) mmol/L Creatinine 0.47 L (0.52-1.04) mg/dL Total Bilirubin 2.5 H (0.2-1.3) mg/dL Total Protein 4.4 L (6.3-8.2) g/dL Albumin 2.4 L (3.5-5.0) g/dL Urine Ketones 1+ H (Negative) Microbiology - Last 24 Hours (Table) 01/11/25 17:55 Anaerobic Culture - Preliminary Arm - Left 01/11/25 17:45 Anaerobic Culture - Preliminary Arm - Left 01/11/25 17:45 Gram Stain - Final Arm - Left Wound Culture - Final 01/11/25 17:55 Gram Stain - Final Arm - Left Wound Culture - Final Assessment and Plan Assessment: Septic shock, improved hemodynamic status improved Altered mental status metabolic encephalopathy and delirious state due to sepsis, continue to improve Bilateral upper extremity dog bite and laceration, so far cultures have been negative Secondary cellulitis due to dog bite Acute on chronic kidney disease Proximal open radial fracture s/p reduction in emergency department Distal radial fracture nondisplaced Distal ulnar fracture Bilateral basilar atelectasis Cerebral atrophy Plan: Continue gentle rehydration Continue broad-spectrum antibiotics Patient to be evaluated for long-term antibiotics and PICC line, will discuss with ID's Replace potassium Patient is s/p wound debridement cleaning Continue DVT and peptic ulcer disease prophylaxis Care plan discussed with patient and significant other present at bedside at length Monitor off of bicarb drip improved CO2 from 14-19 Time with Patient: Greater than 30
[2025-01-15 13:34] VITALS: BP 161/64; PULSE 100; RESP 22; TEMP 98
--- NOTE | 2025-01-15 14:29 | P.DS ---
Providers Date of admission: 01/09/25 12:38 Expected date of discharge: 01/15/25 Attending physician: Cj Wise Consults: 01/09/25 13:20 Consult Physician Urgent Consulting Provider: Edgar Gomez Consult Reason/Comments: medical management Do you want consulting provider notified?: Yes 01/09/25 19:01 Consult Physician Urgent Consulting Provider: Brian Ballard Consult Reason/Comments: Abx management Do you want consulting provider notified?: Yes 01/11/25 00:00 Consult Physician Routine Consulting Provider: Rich Agosto Consult Reason/Comments: hemoglobin drop suddenly Do you want consulting provider notified?: Yes 01/11/25 00:25 Consult Physician Stat Consulting Provider: Lora Khan Consult Reason/Comments: icu management Do you want consulting provider notified?: Already Contacted Primary care physician: Edgar Gomez - Discharge Diagnosis(es) (1) Dog bite Current Visit: Yes Status: Acute Priority: Medium (2) Forearm laceration Current Visit: Yes Status: Acute Priority: Medium (3) Open fracture radius shaft Current Visit: Yes Status: Acute Priority: Medium (4) Open fracture of distal ulna Current Visit: Yes Status: Acute Hospital Course: 64-year-old female who presents to the emergency department with multiple dog bites. She states that she was sitting in her chair earlier this morning when her dog attacked her. States dog was previously never aggressive. She fell out of a chair and onto her left arm where the dog continued to involve both of her forearms. Patient had obvious open fracture to the left forearm. Patient is right-hand dominant. She has multiple deep lacerations to the bilateral forearms. She does not take any blood thinners. She denies hitting her head or losing consciousness throughout the event. Patient received 2 g of Rocephin by EMS en route to the hospital as well as 100 mcg of fentanyl and 4 mg of Zofran. She is up-to-date on her tetanus. States that the dog is up-to-date on their vaccinations. Last oral intake was around 730 this morning when patient ate breakfast. The patient was taken to surgery on 01/09/2025 and 01/11/2025 for I&D of bilateral forearms and a reduction of fixation of the radius and ulna. Her dressing was changed on 01/14/2025 as well as the splint. Her splint was then removed today by infectious disease and left open. I was contacted by the nurse and I returned to apply new dressing and a new splint. She may be discharged to home today and will follow-up on for a splint and dressing change. Antibiotics per infectious disease. Please see med rec for accurate list of home medications. Patient Condition at Discharge: Stable Plan - Discharge Summary Discharge Rx Participant: Yes New Discharge Prescriptions: New Meloxicam 7.5 mg PO DAILY #30 tab Amoxic-Pot Clav 875-125Mg [Augmentin 875-125] 1 tab PO Q12HR 7 Days #14 tab Sennosides-Docusate Sodium [Senokot-S] 1 tab PO BID #60 tablet traMADol HCl [Ultram] 50 mg PO Q6HR PRN #28 tab PRN Reason: Pain No Action oxyCODONE HCL [oxyCODONE HCL (IR)] 30 mg PO QID Metoprolol Tartrate [Lopressor] 50 mg PO BID Meloxicam [Mobic] 15 mg PO DAILY PRN PRN Reason: Pain Tiotropium Br/Olodaterol HCl [Stiolto Respimat Inhaler (60)] 2 puff INHALATION RT-DAILY Losartan/Hydrochlorothiazide [Losartan-Hctz 100-12.5 mg Tab] 1 tab PO DAILY Aspirin [Adult Low Dose Aspirin EC] 81 mg PO DAILY Escitalopram [Lexapro] 10 mg PO DAILY Ergocalciferol [Vitamin D2 (1250 Mcg = 56702 Iu)] 1,250 mcg PO MO Discharge Medication List oxyCODONE HCL [oxyCODONE HCL (IR)] 30 mg PO QID 10/09/18 [History] Aspirin [Adult Low Dose Aspirin EC] 81 mg PO DAILY 10/04/24 [History] Losartan/Hydrochlorothiazide [Losartan-Hctz 100-12.5 mg Tab] 1 tab PO DAILY 10/04/24 [History] Metoprolol Tartrate [Lopressor] 50 mg PO BID 10/04/24 [History] Ergocalciferol [Vitamin D2 (1250 Mcg = 51009 Iu)] 1,250 mcg PO MO 01/09/25 [History] Escitalopram [Lexapro] 10 mg PO DAILY 01/09/25 [History] Meloxicam [Mobic] 15 mg PO DAILY PRN 01/09/25 [History] Tiotropium Br/Olodaterol HCl [Stiolto Respimat Inhaler (60)] 2 puff INHALATION RT-DAILY 01/09/25 [History] Amoxic-Pot Clav 875-125Mg [Augmentin 875-125] 1 tab PO Q12HR 7 Days #14 tab 01/15/25 [Rx] Meloxicam 7.5 mg PO DAILY #30 tab 01/15/25 [Rx] Sennosides-Docusate Sodium [Senokot-S] 1 tab PO BID #60 tablet 01/15/25 [Rx] traMADol HCl [Ultram] 50 mg PO Q6HR PRN #28 tab 01/15/25 [Rx] Follow up Appointment(s)/Referral(s): Edgar Gomez MD [Primary Care Provider] - 1-2 days Cj Wise MD [STAFF PHYSICIAN] - 01/17/25 2:10 pm [facility] Visiting Nurse, [NON-STAFF] - 1 Week Patient Instructions/Handouts: Arm Fracture in Adults (DC), Wrist Fracture in Adults (DC) Activity/Diet/Wound Care/Special Instructions: Maintain splint left upper extremity. May change dressing right upper extremity. Follow-up with Dr. Wise on , 01/17/2025 for splint and dressing change. Antibiotics per infectious disease.
--- NOTE | 2025-01-15 14:48 | P.PN ---
Subjective Progress Note Date: 01/15/25 Principal diagnosis: Reason for follow-up is sepsis bilateral upper extremity dog bite cellulitis Patient is a 64-year-old female with a past medical history significant for angina fibromyalgia hypertension chronic back pain, presenting to the hospital after the patient has been attacked by her dog,. Multiple laceration bilateral upper extremity and left radius fracture status post ORIF. On today's evaluation that is 01/15/2025,the patient denies any fever or any chills, patient is breathing comfortably on room air, the patient denies chest pain shortness of breath and no significant cough, patient denies abdominal pain, no nausea vomiting or diarrhea. Patient pain to the left upper extremity has decreased in intensity. Patient white count is 8.58, creatinine 0.47 UA has been negative local culture negative Objective - Vital Signs Vital signs: Vital Signs Temp 98.2 F 01/15/25 02:00 Pulse 87 01/15/25 02:00 Resp 16 01/15/25 02:00 BP 168/61 01/15/25 02:00 Pulse Ox 97 01/15/25 02:00 FiO2 Intake & Output 01/14/25 01/15/25 01/15/25 18:59 06:59 18:59 Intake Total 600 100 Balance 600 100 Intake: IV 100 100 Ampicillin-Sulbactam 3 gm 100 100 In Sodium Chloride 0.9% 100 ml @ 200 mls/hr IVPB Q12H [facility] Rx#:[id number] Oral 500 Other: Voiding Method Indwelling Catheter Indwelling Catheter # Voids 3 3 - Exam GENERAL DESCRIPTION: Middle-age female lying in bed in no distress RESPIRATORY SYSTEM: Unlabored breathing , decreased breath sounds at bases HEART: S1 S2 regular rate and rhythm , ABDOMEN: Soft , no tenderness EXTREMITIES: Left upper extremity did have some superficial laceration and bruising no significant redness or drainage - Labs CBC & Chem 7: 01/15/25 05:28 01/15/25 05:28 Labs: Abnormal Lab Results - Last 24 Hours (Table) 01/15/25 01/15/25 01/15/25 Range/Units 05:28 05:28 09:53 RBC 2.89 L (4.10-5.20) 10*6/uL Hgb 8.6 L (12.0-15.0) g/dL Hct 25.1 L (37.2-46.3) % MPV 8.9 L (9.5-12.2) fL Sodium 134 L (137-145) mmol/L Creatinine 0.47 L (0.52-1.04) mg/dL Total Bilirubin 2.5 H (0.2-1.3) mg/dL Total Protein 4.4 L (6.3-8.2) g/dL Albumin 2.4 L (3.5-5.0) g/dL Urine Ketones 1+ H (Negative) Microbiology - Last 24 Hours (Table) 01/11/25 17:55 Anaerobic Culture - Preliminary Arm - Left 01/11/25 17:45 Anaerobic Culture - Preliminary Arm - Left 01/11/25 17:45 Gram Stain - Final Arm - Left Wound Culture - Final 01/11/25 17:55 Gram Stain - Final Arm - Left Wound Culture - Final Assessment and Plan (1) Dog bite Status: Acute Priority: Medium Code(s): W54.0XXA - BITTEN BY DOG, INITIAL ENCOUNTER SNOMED Code(s): 376259446 (2) Forearm laceration Status: Acute Priority: Medium Code(s): S51.819A - LACERATION WITHOUT FOREIGN BODY OF UNSP FOREARM, INIT ENCNTR SNOMED Code(s): 239248776 (3) Sepsis Status: Acute Code(s): A41.9 - SEPSIS, UNSPECIFIED ORGANISM SNOMED Code(s): 22597018 Plan: 1patient presented to hospital with bilateral upper extremity laceration and a left forearm fracture related to dog bite and injury in this patient was status post left ORIF of the radius and ulna and concern for possible secondary cellulitis related to the dog bite we need to cover for the oral lilly of the dog and less likely the gram-positive skin lilly on the patient 2-patient did have resolution of her fever white count normal aerobic culture has been negative so far anaerobe cultures are pending 3patient has shown overall clinical improvement will finish therapy with oral Augmentin prescription sent to the pharmacy Dictation was produced using [employer] dictation software. please excuse any grammatical, word or spelling errors. Time with Patient: Less than 30
[2025-01-16 15:40] LABS: Albumin 2.56 g/dL (3.80-4.90); Gamma Globulin 0.4 g/dL (0.70-1.50)
--- NOTE | 2025-01-17 08:37 | CDI ---
Documentation Clarification Form Date: 01/17/25 From: Marcia Tamayo Admit Date: 01/09/2025 12:38:00 PM Patient Name: Leslee Arias Visit Number: [id number] Discharge Date: 01/15/2025 02:33:00 PM ATTENTION: The Clinical Documentation Specialists (CDI) and [facility] Coding Staff appreciate your assistance in clarifying documentation. Please respond to the clarification below the line at the bottom and electronically sign. The CDI & [facility] Coding staff will review the response and follow-up if needed. Please note: Queries are made part of the Legal Health Record. If you have any questions, please contact the author of this message via ITS. Doctor/Provider: Cj Wise, A debridement of the right forename is documented on 01/09/25. Unfortunately, some required elements have not been documented. Additional clarification regarding the procedure is requested. History/Risk Factors: HTN w CKD, anemia due to CKD, COPD, fibromyalgia Clinical Indicators: Patient presents following dog bite of bilateral forearms with fractures of the left forearm. Treatment: Right forearm multiplelacerations washoutwith antiseptic solution (dilute chlorhexidine)debridementof devitalized tissue using scissors and knife, simpleclosureusinginterrupted nylon and penrosedrainplacement. Please clarify the procedure performed ON 01/09: [ x] Excisional debridement (the removal of necrotic, devitalized tissue or slough by means of cutting away of tissue) Depth of debridement _skin, subcutaneous, muscle, bone (3 inches) [ ] Non-excisional debridement (the removal of necrotic, devitalized tissue or slough by means of flushing, brushing, or washing. (Irrigation) [ ] Other; please specify Five elements required for accurate and compliant documentation of a debridement: -Technique used (e.g., excisional, excised, cutting, brushing, jet lavage etc.) -Instrument(s) used (e.g., scalpel, curette, etc.) -Nature of the tissue removed (e.g., necrotic, devitalized tissues, non-viable tissue, etc.) -Appearance and size of the wound (e.g., down to fresh bleeding tissue, 7cm x 10cm, etc.) -Depth of the debridement* (e.g., skin, subcutaneous tissue, fascia, muscle, bone, etc.) (Template Last Revised: May 2024) MTDD
== END 2025-01-15 14:33 | disposition home or self-care (01) | DRG 500 ==
LOC: EC 09:51 → OBSVTOIN 12:38 → 4SSUR 12:38 → 2SICU 01-11 00:14
PROVIDERS: ADMIT Orthopaedic Surgery; ATTEND Orthopaedic Surgery
PROC: 0PSLXZZ Reposition Left Ulna, External Approach (ICD-10-PCS; 2025-01-09)
PROC: 0KQ80ZZ Repair Left Upper Arm Muscle, Open Approach (ICD-10-PCS; 2025-01-09)
PROC: 0PSJXZZ Reposition Left Radius, External Approach (ICD-10-PCS; 2025-01-09)
PROC: 0PSJ04Z Reposition Left Radius with Internal Fixation Device, Open Approach (ICD-10-PCS; principal; 2025-01-09 12:00)
PROC: 0KB90ZZ Excision of Right Lower Arm and Wrist Muscle, Open Approach (ICD-10-PCS; principal; 2025-01-09 12:00)
PROC: 0PSL04Z Reposition Left Ulna with Internal Fixation Device, Open Approach (ICD-10-PCS; principal; 2025-01-09 12:00)
PROC: 0KQ80ZZ Repair Left Upper Arm Muscle, Open Approach (ICD-10-PCS; principal; 2025-01-09 12:00)
PROC: 0KQ70ZZ Repair Right Upper Arm Muscle, Open Approach (ICD-10-PCS; principal; 2025-01-09 12:00)
PROC: 3E1038Z Irrigation of Skin and Mucous Membranes using Irrigating Substance, Percutaneous Approach (ICD-10-PCS; 2025-01-11)
PROC: 0PSL04Z Reposition Left Ulna with Internal Fixation Device, Open Approach (ICD-10-PCS; 2025-01-11)
PROC: 3E043XZ Introduction of Vasopressor into Central Vein, Percutaneous Approach (ICD-10-PCS; 2025-01-11)
PROC: 02HV33Z Insertion of Infusion Device into Superior Vena Cava, Percutaneous Approach (ICD-10-PCS; 2025-01-11)
PROC: 0KD80ZZ Extraction of Left Upper Arm Muscle, Open Approach (ICD-10-PCS; 2025-01-11)
PROC: 05HB33Z Insertion of Infusion Device into Right Basilic Vein, Percutaneous Approach (ICD-10-PCS; 2025-01-14)
DX: S52.302B Unspecified fracture of shaft of left radius, initial encounter for open fracture type I or II (principal); A41.9 Sepsis, unspecified organism; N17.0 Acute kidney failure with tubular necrosis; R65.21 Severe sepsis with septic shock; G93.41 Metabolic encephalopathy; E87.20 Acidosis, unspecified; D62 Acute posthemorrhagic anemia; S52.132 Displaced fracture of neck of left radius; S52.602B Unspecified fracture of lower end of left ulna, initial encounter for open fracture type I or II; S52.102B Unspecified fracture of upper end of left radius, initial encounter for open fracture type I or II; J44.9 Chronic obstructive pulmonary disease, unspecified; D63.1 Anemia in chronic kidney disease; G31.9 Degenerative disease of nervous system, unspecified; I12.9 Hypertensive chronic kidney disease with stage 1 through stage 4 chronic kidney disease, or unspecified chronic kidney disease; N18.9 Chronic kidney disease, unspecified; J98.11 Atelectasis; L03.90 Cellulitis, unspecified; Z78.1 Physical restraint status; G89.29 Other chronic pain; E87.6 Hypokalemia; I25.10 Atherosclerotic heart disease of native coronary artery without angina pectoris; E80.6 Other disorders of bilirubin metabolism; M79.7 Fibromyalgia; M54.9 Dorsalgia, unspecified; Z79.82 Long term (current) use of aspirin; Z79.1 Long term (current) use of non-steroidal anti-inflammatories (NSAID); Z79.891 Long term (current) use of opiate analgesic; Z79.899 Other long term (current) drug therapy; Z87.891 Personal history of nicotine dependence; W54.0XXA Bitten by dog, initial encounter; W07.XXXA Fall from chair, initial encounter; Z88.1 Allergy status to other antibiotic agents; Z88.5 Allergy status to narcotic agent; Z88.8 Allergy status to other drugs, medicaments and biological substances
CPT/HCPCS: 12004; 25605; 36410; 70450; 71250; 74176; 76937; 80048; 80053; 80170; 81001; 81003; 82140; 82533; 82607; 82728; 82747; 82784; 83010; 83540; 83550; 83605; 83615; 83735; 83883; 84165; 85025; 85027; 85045; 85379; 85610; 86334; 86850; 86900; 86901; 87040; 87070; 87075; 87205; 93005; 94640; 94760; 96361; 96374; 96376; 99152; 99153; 99285